=== PATIENT | male | born 1965 | race Caucasian/White ===

== ENCOUNTER 2020-01-14 06:54 | Outpatient (NON) | payer OTHER, SELFPAY ==
[2020-01-14 20:09] LABS: SARS-CoV-2 RNA PCR Negative
== END 2020-01-14 06:55 ==
PROVIDERS: PCP Internal Medicine; Visit Provider Nurse Practitioner
DX: Z20.828 Contact with and (suspected) exposure to other viral communicable diseases (principal); R05 Cough
CPT/HCPCS: 87635; C9803; U0003

== ENCOUNTER 2020-06-29 12:31 | Outpatient (CLI) | payer OTHER, SELFPAY ==
--- NOTE | 2020-06-29 15:00 | NEURO_ITS ---
IMPRESSION: # Complains of numbness of right hand. # Evolving right Carpal Tunnel Syndrome. # No ulnar neuropathy. # Normal needle/EMG exam. Nerve Conduction Studies Anti Sensory Summary Table Stim Site NR Peak (ms) P-T Amp (?V) Site1 Site2 Delta-P (ms) Dist (cm) David (m/s) Right Median Anti Sensory (2-3nd Digit) Wrist 3.0 77.4 Wrist 2-3nd Digit 3.0 14.0 47 Wrist 2.9 57.9 Wrist 2-3nd Digit 3.0 14.0 47 Right Radial Anti Sensory (Base 1st Digit) Wrist 2.3 10.2 Wrist Base 1st Digit 2.3 0.0 Right Ulnar Anti Sensory (5th Digit) Wrist 2.4 64.8 Wrist 5th Digit 2.4 14.0 58 Motor Summary Table Stim Site NR Onset (ms) O-P Amp (mV) Site1 Site2 Delta-0 (ms) Dist (cm) David (m/s) Right Median Motor (Abd Poll Brev) Wrist 3.9 5.8 Elbow Wrist 5.3 31.0 58 Elbow 9.2 3.7 Right Ulnar Motor (Abd Dig Minimi) Wrist 2.9 6.0 A Elbow Wrist 5.5 33.0 60 A Elbow 8.4 5.2 F Wave Studies NR F-Lat (ms) L-R F-Lat (ms) Right Median (Mrkrs) (Abd Poll Brev) 29.25 Right Ulnar (Mrkrs) (Abd Dig Min) 28.22 EMG Side Muscle Nerve Root Ins Act Fibs Amp Dur Recrt Comment Right 1stDorInt Ulnar C8-T1 Nml Nml Nml Nml Nml Right Ext Indicis Radial (Post Int) C7-8 Nml Nml Nml Nml Nml Right Ext Digitorum Radial (Post Int) C7-8 Nml Nml Nml Nml Nml Right BrachioRad Radial C5-6 Nml Nml Nml Nml Nml Right PronatorTeres Median C6-7 Nml Nml Nml Nml Nml Right Abd Poll Brev Median C8-T1 Nml Nml Nml Nml Nml MTDD
== END 2020-06-29 12:32 | disposition home or self-care (01) ==
PROVIDERS: PCP Internal Medicine; Visit Provider Internal Medicine
DX: R20.2 Paresthesia of skin (principal); G56.01 Carpal tunnel syndrome, right upper limb
CPT/HCPCS: 95886; 95909

== ENCOUNTER → 2020-08-20 06:45 | Outpatient (CLI) | payer OTHER, SELFPAY ==
[2020-08-20 23:33] LABS: SARS-CoV-2 RNA PCR Negative
== END ==
PROVIDERS: PCP Internal Medicine
DX: Z01.812 Encounter for preprocedural laboratory examination (principal); Z20.822 Contact with and (suspected) exposure to COVID-19
CPT/HCPCS: C9803; U0003; U0005

== ENCOUNTER 2020-08-22 10:50 | Outpatient (CLI) | payer OTHER, SELFPAY ==
--- NOTE | 2020-08-22 | ECG_ITS ---
Measurements Intervals [place] Rate: 60 P: 55 OR: 121 QRS: 15 QRSD: 102 T: 41 QT: 417 QTc: 418 Interpretive Statements SINUS RHYTHM BASELINE WANDER- I, III NORMAL ECG Electronically Signed On 08-22-2020 11:29:38 ART DEPARTMENT HEAD by Ahsan Juares D.O.
[2020-08-22 11:28] LABS: Anion Gap 4 mmol/L (8-16); Blood Urea Nitrogen 18 mg/dL (9-20); Calcium 8.9 mg/dL (8.4-10.2); Carbon Dioxide 31 mmol/L (22-30); Chloride 105 mmol/L (98-107); Estimated Glomerular Filt Rate > 60; Glucose 103 mg/dL (75-110); Potassium 4.3 mmol/L (3.4-5.0); Sodium 140 mmol/L (137-145)
== END 2020-08-22 10:51 | disposition home or self-care (01) ==
PROVIDERS: PCP Internal Medicine
DX: I10 Essential (primary) hypertension (principal); G56.01 Carpal tunnel syndrome, right upper limb; Z01.818 Encounter for other preprocedural examination
CPT/HCPCS: 36415; 80048; 93005

== ENCOUNTER 2020-10-18 09:30 | Outpatient (CLI) | payer OTHER, SELFPAY ==
--- NOTE | 2020-10-18 09:36 | EST_ITS ---
Patient Info Name: Austin Saldaña Age: 55 years : 1965 Gender: Male Ht: 71 in Wt: 248 lbs BSA: 2.41 m2 HR: 58 bpm BP: 117 / 86 mmHg Heart Rhythm: Sinus Rhythm Exam Date: 10/18/2020 11:13 AM Exam Location: [facility] Stress Patient Status: Outpatient Admit Date: 10/18/2020 Staff Ordering Physician: Kenia Quiles Attending Provider: Kenia Quiles Exercise Technologist: Shirin Izquierdo CT Exercise Physician: Ahsan Juares DO Exam Type: CA stress test treadmill Study Info Indications R06.02 - Shortness of breath An exercise stress test was performed. Summary 1. 1. Negative [place] exercise stress test for ischemic ST changes by ECG criteria. 2. 2. Good functional capacity, achieving 10 METs of workload. 3. 3. Appropriate HR response to exercise. 4. 4. Appropriate HR recovery at 1 minute post exercise. 5. 5. No imaging with stress testing. 6. 6. Patient informed of the above results. Protocol: [place] Stress ECG Details Stage: REST Duration (min): 0 min : 59 sec Speed (mph): 0.0 Grade (%): 0 HR (bpm): 64 SBP (mmHg): 117 DBP (mmHg): 86 METS: --- Stage: STAGE 1 Duration (min): 1 min : 0 sec Speed (mph): 1.7 Grade (%): 10 HR (bpm): 105 SBP (mmHg): 117 DBP (mmHg): 86 METS: --- Stage: STAGE 1 Duration (min): 2 min : 0 sec Speed (mph): 1.7 Grade (%): 10 HR (bpm): 108 SBP (mmHg): 117 DBP (mmHg): 86 METS: --- Stage: STAGE 1 Duration (min): 3 min : 0 sec Speed (mph): 1.7 Grade (%): 10 HR (bpm): 114 SBP (mmHg): 142 DBP (mmHg): 75 METS: --- Stage: STAGE 2 Duration (min): 1 min : 0 sec Speed (mph): 2.5 Grade (%): 12 HR (bpm): 125 SBP (mmHg): 142 DBP (mmHg): 75 METS: --- Stage: STAGE 2 Duration (min): 2 min : 0 sec Speed (mph): 2.5 Grade (%): 12 HR (bpm): 132 SBP (mmHg): 158 DBP (mmHg): 78 METS: --- Stage: STAGE 2 Duration (min): 3 min : 0 sec Speed (mph): 2.5 Grade (%): 12 HR (bpm): 136 SBP (mmHg): 158 DBP (mmHg): 78 METS: --- Stage: STAGE 3 Duration (min): 1 min : 0 sec Speed (mph): 3.4 Grade (%): 14 HR (bpm): 147 SBP (mmHg): 158 DBP (mmHg): 80 METS: --- Stage: STAGE 3 Duration (min): 2 min : 0 sec Speed (mph): 3.4 Grade (%): 14 HR (bpm): 156 SBP (mmHg): 158 DBP (mmHg): 80 METS: --- Stage: STAGE 3 Duration (min): 2 min : 59 sec Speed (mph): 4.2 Grade (%): 16 HR (bpm): 161 SBP (mmHg): 188 DBP (mmHg): 76 METS: --- Stage: RECOVERY Duration (min): 1 min : 0 sec Speed (mph): 0.0 Grade (%): 0 HR (bpm): 132 SBP (mmHg): 188 DBP (mmHg): 76 METS: --- Stage: RECOVERY Duration (min): 2 min : 0 sec Speed (mph): 0.0 Grade (%): 0 HR (bpm): 100 SBP (mmHg): 188 DBP (mmHg): 76 METS: ---
== END 2020-10-18 09:31 | disposition home or self-care (01) ==
LOC: ANHCARD 09:32
PROVIDERS: PCP Internal Medicine; Visit Provider Nurse Practitioner
DX: R06.02 Shortness of breath (principal)
CPT/HCPCS: 93017

== ENCOUNTER 2020-10-19 09:04 | Outpatient (CLI) | payer OTHER, SELFPAY ==
--- NOTE | ~2020-10-19 | US_ITS ---
US abdomen limited INDICATION: Elevated liver function tests PROCEDURE: Realtime right upper abdominal ultrasound. COMPARISON: No prior studies for comparison. FINDINGS: The pancreas is normal without focal mass or pancreatic ductal dilation. Liver echotexture is increased, consistent with fatty infiltration. There is normal directional flow in the portal ve in. The gallbladder is normal without stones, gallbladder wall thickening or pericholecystic fluid. Comm on bile duct measures 3 mm. No sonographic Mejia's sign. IMPRESSION: 1: Hepatic steatosis. Reviewed, dictated and finalized at location B. IMPRESSION: 1: Hepatic steatosis.
== END 2020-10-19 09:05 | disposition home or self-care (01) ==
PROVIDERS: PCP Internal Medicine; Visit Provider Nurse Practitioner
DX: R74.8 Abnormal levels of other serum enzymes (principal); K76.0 Fatty (change of) liver, not elsewhere classified
CPT/HCPCS: 76705

== ENCOUNTER 2020-10-24 10:47 | Outpatient (CLI) | payer OTHER, SELFPAY ==
--- NOTE | ~2020-10-24 | US_ITS ---
EXAMINATION: US venous doppler [facility] EXAM DATE: 10/24/2020 11:26 INDICATION: M79.605 - Pain in left leg. TECHNIQUE: Multiple grayscale, color flow and Doppler images of the left lower extremity deep venous system were obtained and reviewed. There is no prior study for comparison. FINDINGS: The left common femoral, femoral and profunda veins demonstrate normal color flow, respirat ory variation, augmentation and compressibility. Compressibility, color flow confirmed within the le ft popliteal, posterior tibial, peroneal, and greater saphenous veins. IMPRESSION: 1. No left lower extremity deep venous thrombosis. Reviewed, dictated and finalized at location B.
== END 2020-10-24 10:48 | disposition home or self-care (01) ==
PROVIDERS: PCP Internal Medicine; Visit Provider Nurse Practitioner
DX: M79.605 Pain in left leg (principal)
CPT/HCPCS: 93971

== ENCOUNTER → 2021-07-20 09:28 | Outpatient (CLI) | payer OTHER, SELFPAY ==
[2021-07-20 14:30] LABS: Influenza A QL RT-PCR Negative (Negative); Influenza B QL RT-PCR Negative (Negative); SARS-CoV-2 RNA PCR Negative
== END ==
PROVIDERS: PCP Internal Medicine; Visit Provider Nurse Practitioner
DX: R68.89 Other general symptoms and signs (principal); Z20.822 Contact with and (suspected) exposure to COVID-19
CPT/HCPCS: 87502; C9803; U0003; U0005

== ENCOUNTER → 2021-09-12 07:52 | Outpatient (CLI) | payer OTHER, SELFPAY ==
[2021-09-12 11:13] LABS: Influenza A QL RT-PCR Negative (Negative); Influenza B QL RT-PCR Negative (Negative); SARS-CoV-2 RNA PCR Negative
== END ==
PROVIDERS: PCP Internal Medicine; Visit Provider Nurse Practitioner
DX: R68.89 Other general symptoms and signs (principal); Z20.822 Contact with and (suspected) exposure to COVID-19
CPT/HCPCS: 87502; C9803; U0003; U0005

== ENCOUNTER → 2021-09-20 08:33 | Outpatient (CLI) | payer OTHER, SELFPAY ==
--- NOTE | ~2021-09-20 | XR_ITS ---
XR chest 2V DATE: 09/20/2021 08:50 INDICATION: Cough TECHNIQUE: PA and lateral views COMPARISON: 04/11/2018 two-view chest FINDINGS: Normal heart size. No hilar or mediastinal enlargement. No pulmonary infiltrate or consolid ation, pleural effusion or pulmonary vascular congestion or pneumothorax. Degenerative spurring of the thoracic spine. IMPRESSION: No active cardiopulmonary disease Reviewed, dictated and finalized at location A.
== END ==
PROVIDERS: PCP Internal Medicine; Visit Provider Nurse Practitioner
DX: R05.9 Cough, unspecified (principal)
CPT/HCPCS: 71046

== ENCOUNTER → 2021-10-11 14:42 | Outpatient (CLI) | payer OTHER, SELFPAY ==
--- NOTE | ~2021-10-11 | XR_ITS ---
EXAMINATION: XR foot LT min 3V DATE: 10/11/2021 15:14 INDICATION: Left foot pain TECHNIQUE: Dorsoplantar, lateral, and 2 oblique views of the left foot were obtained. COMPARISON: None. FINDINGS: Bone alignment is normal. There is no fracture. There is mild osteoarthritis at the first m etatarsophalangeal joint and in several interphalangeal joints. The soft tissues are unremarkable. Po sterior and plantar calcaneal enthesophytes are noted. IMPRESSION: 1. Mild osteoarthritis. Reviewed, dictated and finalized at location F. IMPRESSION: 1. Mild osteoarthritis.
== END ==
PROVIDERS: PCP Nurse Practitioner; Visit Provider Nurse Practitioner
DX: M19.072 Primary osteoarthritis, left ankle and foot (principal)
CPT/HCPCS: 73630

== ENCOUNTER → 2022-08-17 08:31 | Outpatient (CLI) | payer OTHER, SELFPAY ==
--- NOTE | ~2022-08-17 | XR_ITS ---
XR chest 2V 08/17/2022 08:44 Indication: Cough. Fever. Hypertension. Procedure: 2 view chest Comparison: 09/20/2021 Findings: Heart size normal. No focal air space disease, pulmonary edema, pleural effusion or suspect ed pneumothorax. Impression: 1: No acute cardiopulmonary disease. Reviewed, dictated and finalized at location B. ER GAS Impression: 1: No acute cardiopulmonary disease.
== END ==
PROVIDERS: PCP Internal Medicine; Visit Provider Nurse Practitioner Family
DX: R05.2 Subacute cough (principal); I10 Essential (primary) hypertension
CPT/HCPCS: 71046

== ENCOUNTER → 2023-03-13 13:39 | Outpatient (CLI) | payer OTHER, SELFPAY ==
--- NOTE | ~2023-03-13 | XR_ITS ---
XR lumbar spine 2-3V DATE: 03/13/2023 14:36 INDICATION: Low back pain. TECHNIQUE: Standing AP, lateral and coned lateral lumbosacral views COMPARISON: None FINDINGS: There is degenerative spurring of the lower thoracic spine and lumbar spine. There is moderate loss of height at L4-5 and L5-S1 interspaces. No fracture or bone destruction. The lumbar pedicles are intact. No spondylolisthesis. The sacroili ac joints are intact. IMPRESSION: Degenerative changes Reviewed, dictated and finalized at location A. IMPRESSION: Degenerative changes
== END ==
PROVIDERS: PCP Nurse Practitioner Family; Visit Provider Nurse Practitioner Family
DX: M51.36 Other intervertebral disc degeneration, lumbar region (principal)
CPT/HCPCS: 72100

== ENCOUNTER 2023-03-22 15:41 | Outpatient (CLI) | payer OTHER, SELFPAY ==
--- NOTE | ~2023-03-22 | MR_ITS ---
EXAMINATION: MR lumbar spine wo con DATE: 03/22/2023 16:18 INDICATION: Low back pain. Abnormal findings on diagnostic imaging. TECHNIQUE: Magnetic resonance imaging (MRI) of the lumbar spine was performed without intravenous con trast. Sequences included sagittal T2-weighted FSE, sagittal T2-weighted FS FSE, sagittal T1-weighted FSE, and axial T2-weighted FSE. COMPARISON: Lumbar spine radiographs 04/12/2023 FINDINGS: Bone alignment is normal. There is mild chronic anterior wedging of T12 and L1 vertebral soto dies. There is mildly decreased disc height at L2-L3 and L4-L5 and moderately decreased disc height a t L5-S1. The distal spinal cord signal intensity is normal. The conus medullaris is at L1. The follow ing disc levels are specifically discussed: L1-L2: The disc is bulging. There is moderate bilateral facet joint osteoarthritis. There is no neura l foraminal stenosis. There is mild central canal stenosis. L2-L3: The disc is bulging. There is moderate right and mild left facet joint osteoarthritis. There i s mild bilateral neural foraminal stenosis. There is mild central canal stenosis. L3-L4: The disc does not extend beyond the endplate margin. There is mild bilateral facet joint osteo arthritis. There is no neural foraminal stenosis. There is no central canal stenosis. L4-L5: The disc is bulging with superimposed central extrusion that abuts the right L5 nerve root in right lateral recess. There is mild bilateral facet joint osteoarthritis. There is mild bilateral brian ral foraminal stenosis. There is mild central canal stenosis. L5-S1: The disc is bulging and has an annular fissure. There is severe bilateral facet joint osteoart hritis. There is mild bilateral neural foraminal stenosis. There is mild central canal stenosis. IMPRESSION: 1. Moderate lumbar spondylosis. Reviewed, dictated and finalized at location E.
== END 2023-03-22 15:42 | disposition home or self-care (01) ==
PROVIDERS: PCP Family Medicine; Visit Provider Nurse Practitioner Family
DX: R93.89 Abnormal findings on diagnostic imaging of other specified body structures (principal); M47.26 Other spondylosis with radiculopathy, lumbar region
CPT/HCPCS: 72148

== ENCOUNTER 2023-09-05 06:49 | Day surgery (SDC) | payer OTHER, SELFPAY ==
[2023-08-19 14:42] VITALS: BMI 36.3
[2023-09-05 08:45] VITALS: BP 142/104; PULSE 78; RESP 20; TEMP 36.5; O2SAT 99
[2023-09-05] MEDS: LACTATED RINGERS 1,000 ML 150 ML IV CONT (09:05)
--- NOTE | 2023-09-05 09:19 | PM.HPGS ---
History of Present Illness History of Present Illness Consent: Risks, benefits, and alternatives have been discussed and questions answered. Patient agrees to proceed with procedure. Chief complaint: History of colon polyps Narrative: Austin Saldaña is a 58 year old male presents for colonoscopy. Patient reports his current weight appetite and bowel movements are normal. Patient denies abdominal pain. He has had no bleeding. Five years ago had a diminutive benign rectal polyp that was fulgurated. Family history is significant his sister has had colon polyps. Patient returns today for follow-up colonoscopy. Review of Systems Review of Systems: Review of systems noncontributory. [facility] Past Medical History Medical History Essential hypertension Hepatic steatosis Hepatitis C virus infection resolved after antiviral drug therapy Polyp of colon Right carpal tunnel syndrome Family History Family History Mother Family history of cardiovascular disease Father Family history of malignant neoplasm Social History Social History Smoking packs per day: 1.5 Smoking cigarettes per day: 30.0 Years smoked: 18 Smoking pack-years: 27.00 Smoking status: Former smoker Tobacco type: cigarettes Second hand tobacco smoke exposure: No Smoking end date: 06/24/89 Alcohol intake: current Drinks per week: 6 Alcohol use details: occasionally, beer/bourbon Substance use: never Substance use type: does not use Lack of Transportation: No Lack of Food: Never True Current Housing: I Have Housing Concerned About Future Housing: No Difficulty Paying Gas/Electric Bills: No Difficulty Paying for Meds: No Currently Unemployed: YES Education: High School Diploma/GED Difficulty w/ Childcare or Family Care: No Living arrangements: with family Meds Home Medications and Allergies Home Medications Medication Instructions Recorded Confirmed Type allopurinol 100 mg tablet 100 mg PO DAILY PRN Cough 05/07/22 09/05/23 History inhalational spacing device #1 ea 08/17/22 09/05/23 Rx (Flexichamber spacer) syringe with needle 3 mL 25 gauge #50 ea 02/15/23 09/05/23 Rx x 1 cyclobenzaprine 10 mg tablet 10 mg PO TID PRN muscle spasm #30 03/13/23 09/05/23 Rx tabs losartan 25 mg tablet See Rx Instructions .Route 05/24/23 09/05/23 Rx .COMPLEX #90 tabs fluticasone propionate 50 See Rx Instructions .Route 06/21/23 09/05/23 Rx mcg/actuation nasal .COMPLEX #48 grams spray,suspension testosterone cypionate 200 mg/mL 200 mg IM .every 2weeks #10 mL 08/16/23 09/05/23 Rx intramuscular oil (Depo-Testosterone) tirzepatide (weight loss) 5 mg/0.5 5 mg (0.5 mL) subcut WEEKLY #2 mL 09/02/23 09/05/23 Rx mL subcutaneous pen injector (Zepbound) sodium,potassium,mag sulfates 17.5 See Rx Instructions PO .COMPLEX 09/03/23 09/05/23 Rx gram-3.13 gram-1.6 gram oral soln #354 mL (Suprep Bowel Prep Kit) Allergies Allergy/AdvReac Type Severity Reaction Status Date / Time No Known Allergies Allergy Verified 09/05/23 08:47 Vital Signs Vital Signs - 24 hr 09/05/23 08:45 Temperature 97.7 F Pulse Rate 78 Respiratory Rate 20 Blood Pressure 142/104 H Pulse Oximetry 99 Oxygen Delivery Room Air Exam Narrative: Physical exam reveals patient to be alert. Vital signs stable. HEENT exam is unremarkable. Patient is anicteric. His are clear to auscultation and to percussion is without murmur or extra sounds. Abdomen bowel sounds are present soft nontender with no organomegaly. digital external rectal exam normal. Assessment and Plan Assessment and plan (1) History of colon polyps: Code(s): Z86.010 - Personal history of colonic polyps Status: Acute Assessment and Plan:
--- NOTE | 2023-09-05 09:46 | WPDANESEPPF ---
Anes - Initial Pre Proc Eval Procedure: Operation Date: 09/05/23 10:00 Proposed Procedures p Colonoscopy - Juanjose Alan MD Date/Time: 09/05/23 09:46 Surgeon: Juanjose Alan MD Pre Op Diagnosis: History of colon polyps Patient Data Age: 58 Gender: M Height: 1.8 m Weight: 114.1 kg Last Vital Signs Temp 36.5 C 09/05/23 08:45 Pulse 78 09/05/23 08:45 Resp 20 09/05/23 08:45 BP 142/104 H 09/05/23 08:45 Pulse Ox 99 09/05/23 08:45 O2 Del Method Room Air 09/05/23 08:45 Allergies Allergy/AdvReac Type Severity Reaction Status Date / Time No Known Allergies Allergy Verified 09/05/23 08:47 Home Medications Medication Instructions Recorded Confirmed Type allopurinol 100 mg tablet 100 mg PO DAILY PRN Cough 05/07/22 09/05/23 History inhalational spacing device #1 ea 08/17/22 09/05/23 Rx (Flexichamber spacer) syringe with needle 3 mL 25 gauge #50 ea 02/15/23 09/05/23 Rx x 1 cyclobenzaprine 10 mg tablet 10 mg PO TID PRN muscle spasm #30 03/13/23 09/05/23 Rx tabs losartan 25 mg tablet See Rx Instructions .Route 05/24/23 09/05/23 Rx .COMPLEX #90 tabs fluticasone propionate 50 See Rx Instructions .Route 06/21/23 09/05/23 Rx mcg/actuation nasal .COMPLEX #48 grams spray,suspension testosterone cypionate 200 mg/mL 200 mg IM .every 2weeks #10 mL 08/16/23 09/05/23 Rx intramuscular oil (Depo-Testosterone) tirzepatide (weight loss) 5 mg/0.5 5 mg (0.5 mL) subcut WEEKLY #2 mL 09/02/23 09/05/23 Rx mL subcutaneous pen injector (Zepbound) sodium,potassium,mag sulfates 17.5 See Rx Instructions PO .COMPLEX 09/03/23 09/05/23 Rx gram-3.13 gram-1.6 gram oral soln #354 mL (Suprep Bowel Prep Kit) Patient hx anesthesia problems: none Family hx anesthesia problems: none Results Review: All pre-operative results and documents have been reviewed as part of the pre-operative evaluation. [facility] Past Medical History Medical History Essential hypertension Hepatic steatosis Hepatitis C virus infection resolved after antiviral drug therapy Polyp of colon Right carpal tunnel syndrome Family History Family History Mother Family history of cardiovascular disease Father Family history of malignant neoplasm Social History Social History Smoking packs per day: 1.5 Smoking cigarettes per day: 30.0 Years smoked: 18 Smoking pack-years: 27.00 Smoking status: Former smoker Tobacco type: cigarettes Second hand tobacco smoke exposure: No Smoking end date: 06/24/89 Alcohol intake: current Drinks per week: 6 Alcohol use details: occasionally, beer/bourbon Substance use: never Substance use type: does not use Lack of Transportation: No Lack of Food: Never True Current Housing: I Have Housing Concerned About Future Housing: No Difficulty Paying Gas/Electric Bills: No Difficulty Paying for Meds: No Currently Unemployed: YES Education: High School Diploma/GED Difficulty w/ Childcare or Family Care: No Living arrangements: with family Anes - Eval Final PreProcedure Day of Procedure 09/05/23 09:46 Patient weight: obese Heart: regular rate and rhythm Lungs: clear to auscultation Airway: Mallampati scale class II Neurological: alert and oriented Last oral intake: >/= 8 hours ASA classification: III Emergent: no Anesthetic plan: proceed Anesthesia type and monitoring: general GIVS and standard monitoring Results Review: All pre-operative results and documents have been reviewed as part of the pre-operative evaluation. Informed Consent: The patient's anesthetic plan and its attendant risks and benefits were discussed with the patient/family/POA. Questions were solicited and answers provided to the satisfaction of the patient/fami
[2023-09-05 10:57] VITALS: BP 109/78; PULSE 91; RESP 22; O2SAT 99
--- NOTE | 2023-09-05 11:01 | WPDANESPN ---
Anes - Prog Note Post-Op Date/Time: 09/05/23 11:01 Cardiovascular status: normal Respiratory status: normal Airway patency: baseline Mental status: baseline Post-Op hydration status: normal Vital Signs: Last Vital Signs Temp 36.5 C 09/05/23 08:45 Pulse 78 09/05/23 08:45 Resp 20 09/05/23 08:45 BP 142/104 H 09/05/23 08:45 Pulse Ox 99 09/05/23 08:45 O2 Del Method Room Air 09/05/23 08:45 Pain Score (VAS): 0 I/O: Intake & Output 09/04/23 09/05/23 09/05/23 23:59 07:59 15:59 Intake Total 600 Balance 600 Patient Feedback: Patient satisfied with anesthetic care.
[2023-09-05 11:07] VITALS: BP 124/89; PULSE 77; RESP 20; O2SAT 100
[2023-09-05 11:17] VITALS: BP 132/85; PULSE 69; RESP 20; O2SAT 100
== END 2023-09-05 11:25 | disposition home or self-care (01) ==
PROVIDERS: PCP Family Medicine; Visit Provider Internal Medicine Gastroenterology
PROC: 0DJD8ZZ Inspection of Lower Intestinal Tract, Via Natural or Artificial Opening Endoscopic (ICD-10-PCS; CPT 45378; principal; 2023-09-05 10:00)
DX: Z86.010 Personal history of colon polyps (principal); D12.3 Benign neoplasm of transverse colon; D12.5 Benign neoplasm of sigmoid colon; K57.30 Diverticulosis of large intestine without perforation or abscess without bleeding; K64.8 Other hemorrhoids
CPT/HCPCS: 45385

== ENCOUNTER 2023-09-05 07:17 | Outpatient (NON) | payer OTHER, SELFPAY | END 2023-09-05 07:18 | disposition home or self-care (01) | PROVIDERS: PCP Family Medicine; Visit Provider Internal Medicine Gastroenterology | DX: Z86.010 Personal history of colon polyps (principal) | CPT/HCPCS: 88305 ==

== ENCOUNTER 2024-04-17 08:24 | Outpatient (CLI) | payer OTHER, SELFPAY ==
--- NOTE | ~2024-04-17 | XR_ITS ---
EXAMINATION: XR thoracic spine 2V DATE: 04/17/2024 08:52 INDICATION: Pain in thoracic spine. TECHNIQUE: 3 views of thoracic spine on 5 radiographs were obtained. COMPARISON: Chest 2 views 08/17/2022 FINDINGS: There is 7 degrees levocurvature of upper thoracic spine and 7 degrees dextrocurvature of l ower thoracic spine. There is mild chronic anterior wedging of a midthoracic vertebral body. There is mildly decreased disc height at multiple levels. There are endplate osteophytes at most levels. IMPRESSION: 1. Mild thoracic spondylosis. Reviewed, dictated and finalized at location A.
--- NOTE | ~2024-04-17 | XR_ITS ---
EXAMINATION: XR chest 2V 04/17/2024 08:52 INDICATION: Preprocedural examination. PROCEDURE: 2 view chest COMPARISON: 08/17/2022 FINDINGS: The lungs are clear. The cardiomediastinal silhouette is within normal limits. There are no pleural effusions. There is no pneumothorax suspected. IMPRESSION: 1: NO ACUTE CARDIOPULMONARY DISEASE. Reviewed, dictated and finalized at location B.
[2024-04-17 09:16] LABS: Hematocrit 51.6 % (42.0-52.0); Mean Corpuscular HGB Conc 32.9 g/dl (32-36); Mean Corpuscular Hemoglobin 32.5 pg (26-34); Mean Corpuscular Volume 98.7 fl (80-100); Platelet Count Result 233 k/mm3 (150-375); Red Blood Count 5.23 M/mm3 (4.6-6.20); Red Cell Distribution Width 13.6 % (11.5-14.5); White Blood Count 12.6 K/mm3 (4.5-10.0)
[2024-04-17 09:21] LABS: Add Urine Microscopic? YES; Appearance Urine Clear (Clear); Bacteria Urine None Seen /hpf; Bilirubin Urine Negative (Negative); Blood Urine Negative (Negative); Color Urine Yellow (Yellow); Glucose Urine UA Negative (Negative); Ketones Urine Trace mg/dL (Negative); Leukocyte Esterase Ur Trace LEU/UL (Negative); Nitrate Urine Negative (Negative); Non Pathogenic Casts 0-2; Protein Urine Negative (Negative); RBC Urine 0-2 /hpf (0-2); Squamous Epithelial Cell Urine None Seen /hpf (Few); WBC Urine 0-5 /hpf (0-3)
[2024-04-17 10:19] LABS: Alanine Aminotransferase 27 U/L (6-50); Albumin Level 4.8 g/dL (3.5-5.1); Alkaline Phosphatase 78 U/L (38-126); Anion Gap 10 mmol/L (4-12); Aspartate Amino Transferase 44 U/L (17-59); Bilirubin,Total 0.7 mg/dL (0.2-1.3); Blood Urea Nitrogen 20 mg/dL (9-20); Calcium 9.2 mg/dL (8.4-10.2); Carbon Dioxide 28 mmol/L (22-30); Chloride 103 mmol/L (98-107); Estimated Glomerular Filt Rate > 60; Glucose 87 mg/dL (65-110); Potassium 4.5 mmol/L (3.4-5.0); Sodium 141 mmol/L (137-145)
== END 2024-04-17 08:25 | disposition home or self-care (01) ==
PROVIDERS: PCP Family Medicine; Visit Provider Nurse Practitioner Family
DX: Z01.818 Encounter for other preprocedural examination (principal); M54.6 Pain in thoracic spine
CPT/HCPCS: 36415; 71046; 72070; 80053; 81001; 85027

== ENCOUNTER 2024-04-23 10:36 | Outpatient (CLI) | payer OTHER, SELFPAY ==
--- NOTE | ~2024-04-23 | MR_ITS ---
MRI of the lumbar spine Clinical History: Back pain Technique: Axial T2-weighted images, and sagittal T1-weighted, T2-weighted, and T2 fat-sat images wer e acquired. Findings: There is no fracture or subluxation of the lumbar spine. Vertebral bodies maintain normal h eight and alignment. No bone marrow signal abnormality seen. At L1-L2, there is minimal disc bulge. There is mild facet hypertrophy. No central canal stenosis or neural foraminal narrowing. At L2-L3, there is minimal disc bulge and mild facet arthropathy. No central canal stenosis or neural foraminal narrowing. At L3-L4, there is minimal disc bulge and mild facet arthropathy. No central canal stenosis or neural foraminal narrowing. At L4-L5, there is central disc protrusion with moderate facet arthropathy. No central canal stenosis . No tex neural foraminal narrowing. At L5-S1, there is mild diffuse disc bulge with mild to moderate facet arthropathy. No central canal stenosis. There is minimal right neural foraminal narrowing. Left neural foramen preserved. Paravertebral soft tissues are unremarkable. Impression: Mild degenerative spondylosis, as above. Reviewed, dictated and finalized at location . Impression: Mild degenerative spondylosis, as above.
== END 2024-04-23 10:37 | disposition home or self-care (01) ==
LOC: GOSHIMG 10:38
PROVIDERS: PCP Family Medicine; Visit Provider Orthopaedic Surgery
DX: M47.26 Other spondylosis with radiculopathy, lumbar region (principal)
CPT/HCPCS: 72148

== ENCOUNTER 2024-08-21 10:06 | Outpatient (CLI) | payer OTHER, SELFPAY ==
[2024-08-21 11:11] LABS: Basophils Absolute Auto 0.1 K/mm3 (0.0-0.1); Basophils Percent Auto 0.8 % (0.2-1.2); Eosinophils Absolute Auto 0.2 K/mm3 (0-0.3); Eosinophils Percent Auto 2.8 % (0-4.4); Hematocrit 51.6 % (42.0-52.0); Hemoglobin 17.7 g/dL (14.0-18.0); Immature Granulocyte Absolute 0.03 K/mm3 (0.00-0.031); Immature Granulocyte Percent A 0.5 % (0-0.5); Lymphocytes Absolute Auto 1.96 K/mm3 (0.9-3.2); Lymphocytes Percent Auto 30.3 % (18.3-44.2); Mean Corpuscular HGB Conc 34.3 g/dl (32-36); Mean Corpuscular Hemoglobin 33.7 pg (26-34); Mean Corpuscular Volume 98.3 fl (80-100); Mean Platelet Volume 9.8 fl (7.4-10.4); Monocytes Absolute Auto 0.6 K/mm3 (0.1-0.6); Monocytes Percent Auto 8.5 % (2.6-8.5); Neutrophils Absolute Auto 3.7 K/mm3 (1.3-6.7); Neutrophils Percent Auto 57.1 % (45.5-73.1); Platelet Count Result 242 k/mm3 (150-375); Red Blood Count 5.25 M/mm3 (4.6-6.20); White Blood Count 6.5 K/mm3 (4.5-10.0)
[2024-08-21 11:52] LABS: Alanine Aminotransferase 25 U/L (6-50); Albumin Level 4.5 g/dL (3.5-5.1); Alkaline Phosphatase 70 U/L (38-126); Anion Gap 9 mmol/L (4-12); Aspartate Amino Transferase 32 U/L (17-59); Bilirubin,Total 0.7 mg/dL (0.2-1.3); Blood Urea Nitrogen 18 mg/dL (9-20); Calcium 9.1 mg/dL (8.4-10.2); Carbon Dioxide 26 mmol/L (22-30); Chloride 106 mmol/L (98-107); Estimated Glomerular Filt Rate > 60; Glucose 80 mg/dL (65-110); Potassium 4.7 mmol/L (3.4-5.0); Sodium 141 mmol/L (137-145)
[2024-08-21 15:46] LABS: Hemoglobin A1C 4.7 % (<5.7)
== END 2024-08-21 10:07 | disposition home or self-care (01) ==
LOC: ANHLAB 10:07
PROVIDERS: PCP Family Medicine; Visit Provider Family Medicine
DX: R73.03 Prediabetes (principal); I10 Essential (primary) hypertension; D75.1 Secondary polycythemia; R79.89 Other specified abnormal findings of blood chemistry; R74.8 Abnormal levels of other serum enzymes
CPT/HCPCS: 36415; 80053; 83036; 84403; 85025

== ENCOUNTER 2025-01-16 01:04 | Inpatient (IN) | payer OTHER, SELFPAY ==
[2025-01-16] VITALS (26 sets, daily range): BP systolic 131–165; BP diastolic 72–103; PULSE 61–100; RESP 12–21; TEMP 36.5–37; O2SAT 90–100; BMI 29.7
--- NOTE | 2025-01-16 | ECHO_ITS ---
Patient Info Name: Austin Saldaña Age: 59 years : 1965 Gender: Male Ht: 71 in Wt: 212 lbs BSA: 2.22 m2 HR: 66 bpm BP: 142 / 74 mmHg Technical Quality: Fair Exam Date: 01/16/2025 2:15 PM Patient Status: O Admit Date: 01/16/2025 Exam Type: CA echo dop color flow w con Complete two-dimensional, color flow and Doppler transthoracic echocardiogram is performed with contrast to opacify the left ventricle and to improve the deliniation of the left ventricle endocardial borders. Staff Referring Physician: Mallika Pruitt Senior Grant Writer: Kathrin Metcalf Attending Provider: Gilbert Garcia Contrast/Agitated Saline Contrast/Ag. Saline: Definity Amount: 2.00 ml Administered By: Kathrin Metcalf Summary 1. The left ventricle is normal in size with moderately reduced systolic function. The left ventricular ejection fraction is visually estimated to be 30-35%. There is global hypokinesis. 2. The right ventricle is normal in size and systolic function. 3. There is no significant valvular abnormalities. Left Ventricle The left ventricle is normal in size with moderately reduced systolic function. The left ventricular ejection fraction is visually estimated to be 30-35%. There is global hypokinesis. Right Ventricle The right ventricle is normal in size and systolic function. Left Atria Left atrium is mildly dilated. Right Atria Right atrium is normal size. Atrial Septum The atrial septum is normal. Aortic Valve The aortic valve is trileaflet and opens well. There is no aortic regurgitation. Pulmonic Valve The pulmonic valve is not well visualized. There is no color Doppler evidence of pulmonic valve regurgitation. Mitral Valve The mitral valve is normal. There is trace mitral regurgitation. Tricuspid Valve The tricuspid valve is grossly normal. There is no tricuspid regurgitation. Pericardium/Pleural Pericardium is normal in appearance with no evidence for significant pericardial effusion. Inferior Vena Cava Normal inferior vena cava with >50% collapse upon inspiration consistent with normal right atrial pressure, 3 mmHg. Aorta The aortic root at the level of the sinus of Valsalva measures 3.1 cm in diameter. Left Ventricular Outflow Tract Name Value Normal LVOT 2D LVOT Diameter 2.0 cm LVOT Doppler LVOT Peak Velocity 102 cm/s LVOT Peak Gradient 4 mmHg LVOT Mean Gradient 2 mmHg LVOT VTI 23 cm LVOT Stroke Volume 72 ml LVOT CO 4.7 l/min LVOT CI 2.1 l/min/m2 Pulmonic Valve Name Value Normal RVOT Doppler RVOT Peak Velocity 96 cm/s RVOT Peak Gradient 4 mmHg PV Doppler PV Peak Velocity 159 cm/s PV Peak Gradient 10 mmHg Mitral Valve Name Value Normal MV Diastolic Function MV E Peak Velocity 66 cm/s MV A Peak Velocity 90 cm/s MV E/A 0.7 MV Decel Time (PW) 230 ms MV Annular TDI MV E/e' (Septal) 12.8 MV E/e' (Lateral) 8.6 MV E/e' (Average) 10.7 Tricuspid Valve Name Value Normal Estimated PAP/RSVP RA Pressure 3 mmHg <=5 Aortic Valve Name Value Normal AV Doppler AV Peak Velocity 161 cm/s AV Peak Gradient 10 mmHg AV Area (Cont Eq David) 2.0 cm2 AV DI (David) 0.63 AV Regurgitation 2D LVOT Area 3.2 cm2 Ventricles Name Value Normal LV Dimensions 2D/MM IVS Diastolic Thickness (2D) 0.8 cm 0.6-1.0 LVID Diastole (2D) 5.5 cm 4.2-5.8 LVIW Diastolic Thickness (2D) 1.1 cm 0.6-1.0 LVID Systole (2D) 4.8 cm 2.5-4.0 LVOT Diameter 2.0 cm LV Mass (2D Cubed) 192.81 g 88.00-224.00 LV Mass Index (2D Cubed) 87 g/m2 49-115 Relative Wall Thickness (2D) 0.38 <=0.42 LV Fractional Shortening/Ejection Fraction 2D/MM LV Fractional Shortening (2D) 13 % 25-43 LV EF (2D Teichholz) 28 % LV Diastolic Volume (4C MOD) 173 ml LV EF (4C MOD) 31 % LV Diastolic Volume (2C MOD) 191 ml LV EF (2C MOD) 33 % LV Diastolic Volume (BP MOD) 185 ml 62-150 LV Diastolic Volume Index (BP MOD) 83 ml/m2 34-74 LV Systolic Volume (BP MOD) 127 ml 21-61 LV Systolic Volume Index (BP MOD) 57 ml/m2 11-31 LV EF (BP MOD) 31 % 52-72 LV Diastolic Length (4C) 8.9 cm LV Systolic Length (4C) 7.7 cm LV Stroke Volume (4C MOD) 54 ml Atria Name Value Normal LA Dimensions LA Volume (4C A-L) 83 ml LA Volume (BP A-L) 78 ml RA Dimensions RA Systolic Major [place] Length (4C) 4.1 cm 2.1-2.7 RA Area (4C) 11.5 cm2 <=18.0 Report Signatures
--- NOTE | ~2025-01-16 | XR_ITS ---
CHEST RADIOGRAPH, PA AND LATERAL CLINICAL HISTORY: sob . COMPARISON: 04/17/2024 TECHNIQUE: PA and lateral views of the chest. FINDINGS The cardiomediastinal silhouette is unremarkable. Increased interstitial markings are identified bilaterally, findings suggesting mild pulmonary vascul ar congestion. The lungs are otherwise clear. IMPRESSION: Mild pulmonary vascular congestion, without focal infiltrate or effusion. Reviewed, dictated and finalized at location A.
--- NOTE | ~2025-01-16 | CT_ITS ---
EXAMINATION: CTA chest PE protocol DATE: 01/16/2025 6:46 CDT INDICATION: Hemoptysis/ TECHNIQUE: Computed tomographic angiography (CTA) of the chest was performed with 100 mL Omnipaque-35 0 intravenous contrast. The dose-length product was 821.23 mGy-cm. Maximum intensity projection 3D-re constructions of the aorta and other arteries were constructed by the technologist on a separate work station. COMPARISON: None. FINDINGS/OBSERVATIONS: PULMONARY ARTERIES: No filling defect is identified within the main or proximal pulmonary artery. The main pulmonary artery is not enlarged. THORACIC AORTA: No aneurysmal dilatation or dissection is present. The great vessels are intact LUNGS: Diffuse groundglass opacification suggesting pulmonary edema. No consolidation is appreciated. No discrete pulmonary nodules are noted. MEDIASTINUM: No morphologically suspicious or pathologically enlarged lymph nodes are identified with in the mediastinum or bilateral axilla. BONES OF THE CHEST: No acute fracture. There are bridging endplate osteophytes at multiple levels in the thoracic spine, consistent with dif fuse idiopathic skeletal hyperostosis (DISH). No lytic or blastic lesions. HEART: The heart is of normal size, without pericardial effusion. IMPRESSION: No pulmonary embolus. No thoracic aortic dissection. Pulmonary edema without consolidation. Reviewed, dictated and finalized at location A.
--- OUTSIDE RECORDS SUMMARY | 2025-01-16 01:06 | XMS_ITS | Referral Summary ---
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 Gender Identity Not on file Sexual Orientation Not on file Last Filed Vital Signs Vital Sign Reading Time Taken Comments Blood Pressure 155/88 03/20/2023 11:16 AM CDT Pulse 61 03/20/2023 11:16 AM CDT Temperature - - Respiratory Rate - - Oxygen Saturation - - Inhaled Oxygen Concentration - - Weight 117.9 kg (260 lb) 03/20/2023 11:25 AM CDT Height 180.3 cm (5' 11) 03/20/2023 11:25 AM CDT Body Mass Index 36.26 03/20/2023 11:25 AM CDT Plan of Treatment Not on file Insurance [facility] CHOICE PLUS [address] [place] [id number] CHOICE PLUS Member Subscriber Plan / Payer (Ef fective 2022-Present) Name:PiotrAustin Relation to Subscriber:Self Name:Austin Saldaña Saran Payer ID:[id number] (NAIC) Type:[facility] HMO/PPO Address: [place] [id number] [place] [id number] Care Teams Harvest Worker Relationship Specialty Start Date End Date Lucas Hinojosa MD PCP - General Family Practice 03/12/23
--- OUTSIDE RECORDS SUMMARY | 2025-01-16 01:06 | XMS_ITS | Encounter Summary ---
Author Organization [facility] Address [address] [place] [address] Care Team Providers Care Manager User Experience Name Role Phone Unavailable Primary Care Provider Unavailabl e Encounter Details Date Type Department Care Team (Late st Contact Info) Description 01/18/2005 Outpatient Historical [facility] Internal Medicine - [place] [address] [place] [address] Evaristo Rg MD [address] [place] [address] Social History Tobacco Use Types Packs/Day Years Used Date Smoking Tobacco: Never Assessed Sex and Gender Information Value Date Recorded Sex Assigned at Not on file 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
--- OUTSIDE RECORDS SUMMARY | 2025-01-16 01:06 | XMS_ITS | Clinical Summary ---
Author Organization [facility] Address [address] [place]: Epic Prelude ADT [place] [address] Care Team Providers Care Mix Mill Tender Name Role Phone Unavailable Primary Care Provider Unavailabl e Allergies Active Allergy Reactions Criticality Noted Date Comments No Known Allergies 01/18/2005 Active Problems Problem Noted Date Diagnosed Date Acute hepatitis C without mention of hepatic com a(070.51) 01/18/2005 Routine general medical exam ination at a health care facility 01/18/2005 Social History Tobacco Use Types Packs/Day Years Used Date Smoking Tobacco: Never Assessed Sex and Gender Information Value Date Recorded Sex Assigned at Not on file 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
--- OUTSIDE RECORDS SUMMARY | 2025-01-16 01:06 | XMS_ITS | Encounter Summary ---
Author Organization [facility] Address [address] [place] [address] Care Team Providers Care Telecommunication Engineer Name Role Phone Unavailable Primary Care Provider Unavailabl e Encounter Details Date Type Department Care Team (Late st Contact Info) Description 01/18/2005 Outpatient Historical [facility] Internal Medicine 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
--- OUTSIDE RECORDS SUMMARY | 2025-01-16 01:06 | XMS_ITS | Clinical Summary ---
Author Organization [facility] [employer] Address [address] [place] [address] Care Team Providers Care Pantry Cook Name Role Phone Unavailable Primary Care Provider Unavailabl e Source Comments [facility],non-owned Affiliates and Associated Physician Practices is amultiple site organization consisting of ambulatory clinics and hospital sitesin [place], [place], [place] and [place]. This disclosure is being madepursuant to the Care Everywhere program and may not contain all information available regarding this patient. Last updated 18.[facility] [employer] Allergies Active Allergy Reactions Criticality Noted Date Comments Penicillins Swelling 05/20/2017 Arm swelled from PCN injection as child Medications * Be aware that medications may not be up to date on this document. Alwaysverify current medications with the patient. methylPREDNISol one (MEDROL DOSEPAK) 4 MG tabletIndicatio ns:Acute maxillary sinusitis, recurrence not specified Take by mouth as directed Use dose pack of 4mg tabs, start 24 mg/day, taper by 4mg/day over 6 days per pkg instructions. Take with food. 1 Each 7 Active Additional Information Patient not taking.Reported on 02/25/2018 benzonatate (TESSALON) 200 MG capsuleIndicati ons:Acute maxillary sinusitis, recurrence not specified Take 1 capsule by mouth 3 times daily as needed for Cough 30 capsule 7 Active Additional Information Patient not taking.Reported on 02/25/2018 fluticasone propionate (FLONASE) 50 MCG/ACT nasal sprayIndication s:Acute maxillary sinusitis, recurrence not specified Tappan 2 sprays into each nostril once daily 1 bottles 7 Active Family History Medical History Relation Name Comments Cancer - Other Father blood CAD (Coronary Artery Disease) Mother Diabetes - Type 2 Mother Relation Name Status Comments Father Mother Social History Tobacco Use Types Packs/Day Years Used Date Smoking Tobacco: Former Cigarettes Q uit: 1989 Smokeless Tobacco: Never Sex and Gender Information Value Date Recorded Sex Assigned at Not on file 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 Gender Identity Not on file Sexual Orientation Not on file Last Filed Vital Signs Vital Sign Reading Time Taken Comments Blood Pressure 122/80 02/25/2018 2:33 PM CDT Pulse 91 02/25/2018 2:33 PM CDT Temperature 36.9 C (98.4 F) 02/25/2018 2:33 PM CDT Respiratory Rate 16 02/25/2018 2:33 PM CDT Oxygen Saturation 97% 02/25/2018 2:33 PM CDT Inhaled Oxygen Concentration - - Weight 104.3 kg (230 lb) 02/25/2018 2:33 PM CDT Height 180.3 cm (5' 11) 02/25/2018 2:33 PM CDT Body Mass Index 32.08 02/25/2018 2:33 PM CDT Plan of Treatment Health Maintenance Due Date Last Done Comments COLOGUARD (AGES 45-75) - COL ON CA SCREENING 1965 COLON MONITORING 1965 COLONOSCOPY - COLON CA SCREENING 1964 CT COLONOGRAPHY - COLON CA SCREENING 1964 Colorectal Cancer Screening 1964 FIT - COLON CA SCREENING 1964 FLEX SIG - COLON CA SCREENING 1964 LIPID TESTING 1964 HIV SCREENING 1979 HEPATITIS C SCREENING 04/25/1982 DTAP/TDAP/TD VACCINES (1 - Tdap) 1983 PNEUMOCOCCAL VACCINE 50+ (1 of 1 - PCV) 2014 ZOSTER VACCINE (1 of 2) 2014 SCREENING FOR DIABETES 05/20/2017 COVID-19 VACCINE ( - 2023-2 5 season) 2024 DEPRESSION SCREENING 06/24/2024 INFLUENZA VACCINE (#1) 2025 Respiratory Syncytial Virus (RSV) Vaccine Pt: or over 60 yrs (1 - 1-dose 75+ series) 2039 HEPATITIS B VACCINE Aged Out No longe r eligible based on patient's age to complete this topic HIB VACCINE Aged Out No longer eligi ble based on patient's age to complete this topic HPV VACCINE Aged Out No longer eligi ble based on patient's age to complete this topic MENINGOCOCCAL (Group B) VACC INE SHARED DECISION-MAKING Aged Out No longer eligibl e based on patient's age to complete this topic MENINGOCOCCAL GROUPS A/C/Y/W VACCINE Aged Out No longer eligible b ased on patient's age to complete this topic Insurance [facility] SELF PAY NO INSURANCE Member Subscriber Plan / Payer (Ef fective for All Dates) Name:Austin Ashton Member ID:Not on file Relation to Subscriber:Not on file Name:AUSTIN ASHTON Subscriber ID:Not on file Address: [address] [place] [address] Payer ID:Not on file Group ID:Not on file Type:Self Pay Address: [place], [place] [employer] SELF PAY NO INSURANCE Member Subscriber Plan / Payer (Ef fective for All Dates) Name:Austin Ashton Saran Member ID:Not on file Relation to Subscriber:Not on file Name:AUSTIN ASHTON Subscriber ID:Not on file Address: [address] [place] [address] Payer ID:Not on file Group ID:Not on file Type:Self Pay Address: [place], [place] CARE SELF PAY NO INSURANCE Member Subscriber Plan / Payer (Ef fective for All Dates) Name:Austin Ashton Saran Member ID:Not on file Relation to Subscriber:Not on file Name:TONIE ASHTONETT Subscriber ID:Not on file Address: [address] [place] [address] Payer ID:Not on file Group ID:Not on file Type:Self Pay Address: [place], [place]
--- OUTSIDE RECORDS SUMMARY | 2025-01-16 01:06 | XMS_ITS | Patient Health Record ---
Author Organization [facility] Address [address] [place]. [address] [place] [address] Support Name Relationship Address Phone Austin Saldaña Guarantor Unknown [phone] Reason For Referral No Information Plan Of Treatment No Information Insurance Providers Payer Name Payer Address Payer Phone Subscriber Number Group Number Insured Name Patient Relationship to Insured Coverage Start Date Coverage End Date [facility] Choice/ choice Plus E2 [address] [place] [address] [id number] Austin Saldaña Self - patient is the insured
--- OUTSIDE RECORDS SUMMARY | 2025-01-16 01:06 | XMS_ITS | Encounter Summary ---
Author Organization [facility] Address [address] [place] [address] Care Team Providers Care Park Interpreter Name Role Phone Unavailable Primary Care Provider Unavailabl e Encounter Details Date Type Department Care Team (Late st Contact Info) Description 01/18/2005 Outpatient Historical [facility] Internal Medicine - [place] [address] [place] [address] Evaristo Rg MD [address] [place] [address] Social History Tobacco Use Types Packs/Day Years Used Date Smoking Tobacco: Never Assessed Sex and Gender Information Value Date Recorded Sex Assigned at Not on file 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
--- OUTSIDE RECORDS SUMMARY | 2025-01-16 01:06 | XMS_ITS | Clinical Summary ---
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 Gender Identity Not on file Sexual Orientation [...] 03/20/2023 11:25 AM CDT Plan of Treatment Health Maintenance Due Date Last Done Comments Colon Cancer Screening-Colonoscopy 1965 Depression Screening 1964 Hepatitis C Screening 1964 Prostate Cancer Screening-PSA 1964 DTaP/Tdap/Td Vaccine (1 - Tdap) 1975 Hepatitis B Screening 1982 Regular Well Visit/Exam 18-64 1982 Zoster Vaccine (1 of 2) 2014 Covid-19 Vaccine (2023-2 5 season) 2024 12/03/2020, 11/04/2020 Influenza Vaccine (#1) 2025 , 03/15/2020 Pneumococcal vaccine <65 Aged Out No longer eligible based on patient's age to complete this topic Insurance CHOICE PLUS CHOICE PLUS Member Subscriber Plan / Payer (Ef fective 2022-Present) Name:Austin Saldaña Relation to Subscriber:Self Name:Austin Saldaña Payer ID:[id number] (NAIC) Type:[facility] HMO/PPO Address: [place] [phone] Care Teams Studio Grip Relationship Specialty Start Date End Date Lucas Hinojosa MD PCP - General Family Practice 03/12/23
--- NOTE | 2025-01-16 01:16 | ECG_ITS ---
Test Date: 2025-01-16 01:19:35 Measurements Intervals [place] Rate: 82 P: 55 ND: 150 QRS: -45 QRSD: 164 T: 86 QT: 423 QTc: 494 Interpretive Statements SINUS RHYTHM POSSIBLE LEFT ATRIAL ENLARGEMENT [-0.1mV P-WAVE IN V1/V2] LEFT BUNDLE BRANCH BLOCK [120+ ms QRS DURATION, 80+ ms Q/S IN V1/V2, 85+ ms R IN I/aVL/V5/V6] No previous ECG available for comparison Electronically Signed On 01-16-2025 21:35:15 CDT by Alonso Chung M.D.
[2025-01-16 01:31] LABS: Hematocrit 49.9 % (42.0-52.0); Hemoglobin 17.1 g/dL (14.0-18.0); Immature Granulocyte Percent A 0.2 % (0-0.5); Lymphocytes Absolute Auto 3.03 K/mm3 (0.9-3.2); Mean Corpuscular HGB Conc 34.3 g/dl (32-36); Mean Corpuscular Hemoglobin 33.5 pg (26-34); Mean Corpuscular Volume 97.8 fl (80-100); Nucleated Red Blood Cells Absolute Auto 0.000 K/mm3 (0.0-0.012); Nucleated Red Blood Cells Perc 0.0 % (0.0-0.2); Platelet Count Result 229 k/mm3 (150-375); Red Blood Count 5.10 M/mm3 (4.6-6.20); White Blood Count 8.8 K/mm3 (4.5-10.0)
[2025-01-16 01:46] LABS: Alanine Aminotransferase 28 U/L (6-50); Albumin Level 4.5 g/dL (3.5-5.1); Alkaline Phosphatase 102 U/L (38-126); Anion Gap 10 mmol/L (4-12); Aspartate Amino Transferase 46 U/L (17-59); Bilirubin,Total 0.8 mg/dL (0.2-1.3); Blood Urea Nitrogen 16 mg/dL (9-20); Calcium 9.3 mg/dL (8.4-10.2); Carbon Dioxide 24 mmol/L (22-30); Chloride 104 mmol/L (98-107); Estimated CRCL calculation 89 ml/min; Estimated Glomerular Filt Rate > 60; Glucose 116 mg/dL (65-110); Potassium 4.1 mmol/L (3.4-5.0); Sodium 138 mmol/L (137-145); Total Protein 7.5 g/dL (6.3-8.2)
[2025-01-16 01:58] LABS: INR 0.9; Prothrombin Time 12.4 Seconds (11.1-14.7)
[2025-01-16 01:59] LABS: Partial Thromboplastin Time 26.2 Seconds (22.3-36.8)
[2025-01-16 02:38] LABS: NT Pro B Type Natriuretic Pept 415 pg/mL (19.9-100)
--- NOTE | 2025-01-16 03:33 | ED_ITS ---
HPI - SOB/Dyspnea General Chief Complaint: Shortness of Breath/Dyspnea Stated Complaint: coughing up blood, sob Time Seen by Provider: 01/16/25 02:52 Source: patient and family Mode of arrival: ambulatory Limitations: no limitations History of Present Illness HPI Narrative: Patient presents with report of increasing shortness of breath over the past 24 hours in addition to hemoptysis. He states initially he was coughing up pink/red foam but then started coughing up blood that was brighter red. Denies any edema, fevers, chills. Recently vacationed in [place]. Drove there. Notes that there were areas that were crowded and he also rode a roller coaster.. Symptoms started approximately 4:00 a.m. yesterday. He describes a burning sensation in his chest described as tightness but otherwise without tex chest pain. History of bronchitis although without previous bleeding. Denies any underlying cardiac or pulmonary history otherwise. Quit smoking 20 years ago. He is on Zepbound (lost weight on a higher dose previously, quit and now restarted on a low dose) as well as testosterone (dose of this decreased after he was noted to have elevated Hgb). Not on anticoagulation. History HTN. Describes a pleuritic nature to his symptoms. Primary care physician Dr. Hinojosa. Related Data Home Medications ?Medication ?Instructions ?Recorded ?Confirmed ?Last Taken ?Type allopurinol 100 mg tablet 100 mg PO .prn PRN Cough 02/11/24 01/16/25 Unknown History multivitamin (Daily Multi-Vitamin 1 tablet PO DAILY 01/16/25 01/16/25 01/15/25 History tablet) omega 7-[id number]-fish oil 1,000 mg 1 cap PO DAILY 01/16/25 01/16/25 01/15/25 History (120 mg-180 mg) capsule (Fish Oil) perfect amino 1 sc PO DAILY 01/16/25 01/16/25 01/15/25 History turmeric 400 mg capsule 400 mg PO DAILY liver function 01/16/25 01/16/25 01/15/25 History vitamin E 268 mg (400 unit) capsule 268 mg PO DAILY 01/16/25 01/16/25 01/15/25 History Allergies Allergy/AdvReac Type Severity Reaction Status Date / Time No Known Allergies Allergy Verified 01/16/25 09:23 [facility] Past Medical History Medical History Hepatic steatosis Right carpal tunnel syndrome Essential hypertension Hepatitis C virus infection resolved after antiviral drug therapy Polyp of colon Family History Family History (Updated 01/16/25 @ 09:41 by Radha Cordon RN) Mother Family history of cardiovascular disease Father Family history of malignant neoplasm Grandparent Brain cancer Memory change Cerebrovascular accident Heart disease Sibling Heart disease Family history of cardiovascular disease Social History Social History Smoking packs per day: 1.5 Smoking cigarettes per day: 30.0 Years smoked: 18 Smoking pack-years: 27.00 Smoking status: Former smoker Tobacco type: cigarettes Second hand tobacco smoke exposure: No Smoking end date: 06/24/19 Alcohol intake: current Drinks per week: 6 Alcohol use details: occasionally, beer/bourbon Substance use: never Substance use type: does not use Do You Feel Safe in your Home?: Yes Lack of Transportation: No Lack of Food: Never True Current Housing: I Have Housing Concerned About Future Housing: No Difficulty Paying Gas/Electric Bills: No Difficulty Paying for Meds: No Currently Unemployed: No Education: High School Diploma/GED Difficulty w/ Childcare or Family Care: No Living arrangements: with family Spiritual care concerns: No Exam 2 Narrative: GENERAL: Well-appearing, well-nourished, and in no acute distress. HEAD: Normocephalic, atraumatic. EYES: Non injected, non icteric ENT: Nares clear, no rhinorrhea or epistaxis. Gross auditory acuity intact. NECK: Supple. No meningismus. CHEST: Speaking in full sentences. No respiratory distress. Coarse breath sounds, particularly on the right. HEART: Regular rate and rhythm. . ABDOMEN: Soft, nondistended. No rigidity or guarding. Not peritoneal EXTREMITIES: Normal range of motion. No lower extremity edema. SKIN: Warm, dry, no rash. NEURO: No focal deficits. Alert and oriented. Answering questions. Following commands. Normal speech without aphasia or dysarthria. PSYCH: Normal mood and affect. Course Vital Signs Vital signs: Vital Signs Temperature 98.6 F 01/16/25 01:10 Pulse Rate 100 01/16/25 01:10 Respiratory Rate 18 01/16/25 01:10 Blood Pressure 161/103 H 01/16/25 01:10 Pulse Oximetry 90 01/16/25 01:10 Oxygen Delivery Room Air 01/16/25 01:10 Temperature 97.9 F 01/17/25 08:00 Pulse Rate 66 01/17/25 08:20 Respiratory Rate 20 01/17/25 08:00 Blood Pressure 131/77 01/17/25 08:00 Pulse Oximetry 97 01/17/25 08:00 Oxygen Delivery Nasal Cannula 01/17/25 04:00 Oxygen Flow Rate 2 01/17/25 04:00 MDM - SOB/Dyspnea MDM Narrative Medical decision making narrative: Patient presents with increasing shortness of breath as well as hemoptysis. He reports that initially he was having some pink/red foamy frothy sputum then was coughing up blood that was brighter red. Symptoms started approximately 4:00 a.m.. He describes a burning in his chest, like a tightness. Quit smoking 20+ years ago. Not on anticoagulation. History hypertension. In the emergency department he is afebrile with vital signs notable for hypertension and initially reported hypoxia. This improves to 96% without intervention. BNP mildly elevated not to a degree to suggest acute heart failure based on the reference range of the assay especially for patient's age. Patient has 2 troponins that are technically within normal limits although with a positive delta. 6 hour troponin is ordered. CT without evidence of PE although there is notation of pulmonary edema w/o consolidation. While his symptoms therefore might represent bronchitis, I do believe patient would benefit from admission for furhter work up. 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 Has otherwise been stable. Differential Diagnosis Differential diagnosis: Likely congestive heart failure (Including flash pulmonary edema/scape), community acquired pneumonia, pulmonary embolism and other (Bronchitis, acute viral syndrome,) Lab Data Attestation: I reviewed the patient's lab results. Lab results narrative: No abnormalities on CBC with differential 01/17/25 05:40 01/17/25 05:40 Labs: Lab Results 01/16/25 01/16/25 01/16/25 Range/Units 01:24 01:25 03:51 WBC 8.8 (4.5-10.0) K/mm3 RBC 5.10 (4.6-6.20) M/mm3 Hgb 17.1 (14.0-18.0) g/dL Hct 49.9 (42.0-52.0) % MCV 97.8 (80-100) fl MCH 33.5 (26-34) pg MCHC 34.3 (32-36) g/dl RDW 12.8 (11.5-14.5) % Plt Count 229 (150-375) k/mm3 MPV 9.7 (7.4-10.4) fl Immature Gran % (Auto) 0.2 (0-0.5) % Neut % (Auto) 54.4 (45.5-73.1) % Lymph % (Auto) 34.6 (18.3-44.2) % [place] % (Auto) 7.3 (2.6-8.5) % Eos % (Auto) 3.0 (0-4.4) % Baso % (Auto) 0.5 (0.2-1.2) % Lymph # (Auto) 3.03 (0.9-3.2) K/mm3 [place] # (Auto) 0.6 (0.1-0.6) K/mm3 Eos # (Auto) 0.3 (0-0.3) K/mm3 Baso # (Auto) 0.0 (0.0-0.1) K/mm3 Abs Immat Gran (auto) 0.02 (0.00-0.031) K/mm3 Absolute Neuts (auto) 4.8 (1.3-6.7) K/mm3 Absolute Nucleated RBC 0.000 (0.0-0.012) K/mm3 Nucleated RBC % 0.0 (0.0-0.2) % PT 12.4 (11.1-14.7) Seconds INR 0.9 APTT 26.2 (22.3-36.8) Seconds Sodium 138 (137-145) mmol/L Potassium 4.1 (3.4-5.0) mmol/L Chloride 104 (98-107) mmol/L Carbon Dioxide 24 (22-30) mmol/L Anion Gap 10 (4-12) mmol/L BUN 16 (9-20) mg/dL Creatinine 0.91 (0.7-1.3) mg/dL Estim Creat Clear Calc 89 ml/min Estimated GFR > 60 (59 - ) Glucose 116 H (65-110) mg/dL Calcium 9.3 (8.4-10.2) mg/dL Total Bilirubin 0.8 (0.2-1.3) mg/dL AST 46 (17-59) U/L ALT 28 (6-50) U/L Alkaline Phosphatase 102 (38-126) U/L Troponin I 0.014 (0.000-0.034) ng/mL NT-Pro-B Natriuret Pep 415 H (19.9-100) pg/mL Total Protein 7.5 (6.3-8.2) g/dL Albumin 4.5 (3.5-5.1) g/dL Influenza A (RT-PCR) Negative (Negative) Influenza B (RT-PCR) Negative (Negative) RSV (RT-PCR) Negative (Negative) SARS-CoV-2 RNA (RT-PCR) Negative (Negative) 01/16/25 01/16/25 Range/Units 04:50 07:54 WBC (4.5-10.0) K/mm3 RBC (4.6-6.20) M/mm3 Hgb (14.0-18.0) g/dL Hct (42.0-52.0) % MCV (80-100) fl MCH (26-34) pg MCHC (32-36) g/dl RDW (11.5-14.5) % Plt Count (150-375) k/mm3 MPV (7.4-10.4) fl Immature Gran % (Auto) (0-0.5) % Neut % (Auto) (45.5-73.1) % Lymph % (Auto) (18.3-44.2) % [place] % (Auto) (2.6-8.5) % Eos % (Auto) (0-4.4) % Baso % (Auto) (0.2-1.2) % Lymph # (Auto) (0.9-3.2) K/mm3 [place] # (Auto) (0.1-0.6) K/mm3 Eos # (Auto) (0-0.3) K/mm3 Baso # (Auto) (0.0-0.1) K/mm3 Abs Immat Gran (auto) (0.00-0.031) K/mm3 Absolute Neuts (auto) (1.3-6.7) K/mm3 Absolute Nucleated RBC (0.0-0.012) K/mm3 Nucleated RBC % (0.0-0.2) % PT (11.1-14.7) Seconds INR APTT (22.3-36.8) Seconds Sodium (137-145) mmol/L Potassium (3.4-5.0) mmol/L Chloride (98-107) mmol/L Carbon Dioxide (22-30) mmol/L Anion Gap (4-12) mmol/L BUN (9-20) mg/dL Creatinine (0.7-1.3) mg/dL Estim Creat Clear Calc ml/min Estimated GFR (59 - ) Glucose (65-110) mg/dL Calcium (8.4-10.2) mg/dL Total Bilirubin (0.2-1.3) mg/dL AST (17-59) U/L ALT (6-50) U/L Alkaline Phosphatase (38-126) U/L Troponin I 0.020 D 0.016 (0.000-0.034) ng/mL NT-Pro-B Natriuret Pep (19.9-100) pg/mL Total Protein (6.3-8.2) g/dL Albumin (3.5-5.1) g/dL Influenza A (RT-PCR) (Negative) Influenza B (RT-PCR) (Negative) RSV (RT-PCR) (Negative) SARS-CoV-2 RNA (RT-PCR) (Negative) Imaging Data Attestation: I personally reviewed and interpreted this imaging study as follows: My impression: Right middle lobe haziness however without tex consolidation on my independent interpretation of chest x-ray Radiologist's impression: Impressions Chest CTA 01/16/25 06:45 IMPRESSION: No pulmonary embolus. No thoracic aortic dissection. Pulmonary edema without consolidation. IMPRESSION: Mild pulmonary vascular congestion, without focal infiltrate or effusion. ECG Data EKG #1: Attestation: I personally reviewed and interpreted this ECG as follows: ECG completion date: 01/16/25 ECG completion time: 01:19 Prior ECG tracings: available for review (Previous EKG did not have the Left bundle-branch block ) Interpretation: Normal sinus rhythm at a rate of 82 beats per minute. OK interval 150. QRS 164. QT/QTC 423/494. Left axis deviation (QRS is positive with dominant R wave in Lead I; QRS is negative with dominant S wave in leads II, III, and aVF). Left bundle-branch block with QRS duration greater than 120 milliseconds, dominant S-wave in V1, broad monophasic R-wave in lateral leads (1, aVL, V5-V6), absence of Q-waves in lateral leads. EKG #2: Attestation: I personally reviewed and interpreted this ECG as follows: ECG completion date: 01/16/25 ECG completion time: 04:54 Interpretation: Normal sinus rhythm at a rate of 73 beats per minute. OK interval 130. QRS 164. QT/QTC 466/491. Left axis deviation (QRS is positive with dominant R wave in Lead I; QRS is negative with dominant S wave in leads II, III, and aVF). Intraventricular conduction delay. EKG #3: Attestation: I personally reviewed and interpreted this ECG as follows: ECG completion date: 01/16/25 ECG completion time: 07:57 Interpretation: Normal sinus rhythm at a rate of 67 beats per minute. OK interval 140. QRS 162. QT/QTC 455/471. Left axis deviation (QRS is positive with dominant R wave in Lead I; QRS is negative with dominant S wave in leads II, III, and aVF). Left bundle-branch block with QRS duration greater than 120 milliseconds, dominant S-wave in V1, broad monophasic R-wave in lateral leads (1, aVL, V5-V6), absence of Q-waves in lateral leads. Discharge Plan Discharge Clinical Impression: Cough with hemoptysis, Burning chest pain, Bronchitis, Left axis deviation, Left bundle branch block (LBBB) determined by electrocardiography Pulmonary edema Qualifiers: Chronicity: acute Qualified Code(s): J81.0 - Acute pulmonary edema Patient Disposition: Still a Patient Condition: Stable
--- OUTSIDE RECORDS SUMMARY | 2025-01-16 03:34 | XMS_ITS | Encounter Summary ---
Author Organization [facility] Address [address] [place] [address] Care Team Providers Care Turning And Beading Machine Operator Name Role Phone Unavailable Primary Care Provider Unavailabl e Encounter Details Date Type Department Care Team (Late st Contact Info) Description 01/18/2005 Outpatient Historical [facility] Internal Medicine - [place] [address] [place] [id number] Evaristo Rg MD [address] [place] [address] Social History Tobacco Use Types Packs/Day Years Used Date Smoking Tobacco: Never Assessed Sex and Gender Information Value Date Recorded Sex Assigned at Not on file 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
--- OUTSIDE RECORDS SUMMARY | 2025-01-16 03:34 | XMS_ITS | Encounter Summary ---
Author Organization Address [address] [place] [address] Care Team Providers Care Repairer Finished Metal Name Role Phone Unavailable Primary Care Provider Unavailabl e Encounter Details Date Type Department Care Team (Late st Contact Info) Description 01/18/2005 Outpatient Historical [facility] Internal Medicine - [place] [address] [place] [address] Evaristo Rg MD [address] [place] [address] Social History Tobacco Use Types Packs/Day Years Used Date Smoking Tobacco: Never Assessed Sex and Gender Information Value Date Recorded Sex Assigned at Not on file 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
--- OUTSIDE RECORDS SUMMARY | 2025-01-16 03:34 | XMS_ITS | Clinical Summary ---
Author Organization [facility] Address [address] [place] [address] Care Team Providers Care Cut Out Press Operator Name Role Phone Unavailable Primary Care Provider Unavailabl e Source Comments [facility],non-owned Affiliates and Associated Physician Practices is amultiple site organization consisting of ambulatory clinics and hospital sitesin [place], [place]. This disclosure is being madepursuant to the Care Everywhere program and may not contain all information available regarding this patient. 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 Gender Identity Not on file Sexual Orientation [...] patient's age to complete this topic Insurance [facility] SELF PAY NO INSURANCE Member Subscriber Plan / Payer (Ef fective for All Dates) Name:Austin Ashton Member ID:Not on file Relation to Subscriber:Not on file Name:AUSTIN ASHTON Subscriber ID:Not on file Address: [address] [place] [address] Payer ID:Not on file Group ID:Not on file Type:Self Pay Address: [place], [place] [employer] SELF PAY NO INSURANCE Member Subscriber Plan / Payer (Ef fective for All Dates) Name:Austin Ashton Saran Member ID:Not on file Relation to Subscriber:Not on file Name:AUSTIN ASHTON Subscriber ID:Not on file Address: [address] [place] [address] Payer ID:Not on file Group ID:Not on file Type:Self Pay Address: [place], [place] CARE SELF PAY NO INSURANCE Member Subscriber Plan / Payer (Ef fective for All Dates) Name:Austin Ashton Saran Member ID:Not on file Relation to Subscriber:Not on file Name:TONIE ASHTONETT Subscriber ID:Not on file Address: [address] [place] [address] Payer ID:Not on file Group ID:Not on file Type:Self Pay Address: [place], [place]
--- OUTSIDE RECORDS SUMMARY | 2025-01-16 03:34 | XMS_ITS | Encounter Summary ---
Author Organization [facility] Address [address] [place] [address] Care Team Providers Care Solid Waste Collection Worker Name Role Phone Unavailable Primary Care Provider Unavailabl e Encounter Details Date Type Department Care Team (Late st Contact Info) Description 01/18/2005 Outpatient Historical [facility] Internal Medicine - [place] [address] [place] [phone] Evaristo Rg MD [address] [place] [address] Social History Tobacco Use Types Packs/Day Years Used Date Smoking Tobacco: Never Assessed Sex and Gender Information Value Date Recorded Sex Assigned at Not on file 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
--- OUTSIDE RECORDS SUMMARY | 2025-01-16 03:34 | XMS_ITS | Referral Summary ---
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
--- OUTSIDE RECORDS SUMMARY | 2025-01-16 03:34 | XMS_ITS | Clinical Summary ---
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
--- OUTSIDE RECORDS SUMMARY | 2025-01-16 03:34 | XMS_ITS | Clinical Summary ---
Author Organization [facility] Address [address] [place]: Epic Prelude [place]T [place] [address] Care Team Providers Care Wind Turbine Blade Repair Technician Name Role Phone Unavailable Primary Care Provider [...] on file Legal Sex Male 2:45 AM PLANT DIRECTOR Gender Identity Not on file Sexual Orientation [...]
[2025-01-16 04:10] LABS: Troponin I 0.014 ng/mL (0.000-0.034)
[2025-01-16 04:38] LABS: Influenza A QL RT-PCR Negative (Negative); Influenza B QL RT-PCR Negative (Negative); RSV RNA, RT-PCR Negative (Negative); SARS-CoV-2 RNA PCR Negative (Negative)
--- NOTE | 2025-01-16 04:41 | ECG_ITS ---
Test Date: 2025-01-16 04:54:15 Measurements Intervals [place] Rate: 73 P: 42 AR: 130 QRS: -46 QRSD: 164 T: 77 QT: 466 QTc: 514 Interpretive Statements SINUS RHYTHM LEFT AXIS DEVIATION [QRS AXIS < -30] LEFT BUNDLE-BRANCH BLOCK Compared to ECG 01/16/2025 01:19:35 NO SIGNIFICANT CHANGES Electronically Signed On 01-17-2025 14:00:16 CDT by Alonso Chung M.D.
[2025-01-16 05:20] LABS: Troponin I 0.020 ng/mL (0.000-0.034)
[2025-01-16] MEDS: BELLADONNA ALK/PHENOB ELIX 10 ML, MAG HYDROX/ALUMINUM HYD/SIMETH 30 ML, LIDOCAINE 2% VI... PO (07:03)
--- NOTE | 2025-01-16 07:50 | ECG_ITS ---
Test Date: 2025-01-16 07:57:14 Measurements Intervals [place] Rate: 67 P: 50 MN: 140 QRS: -47 QRSD: 162 T: 78 QT: 455 QTc: 484 Interpretive Statements SINUS RHYTHM LEFT AXIS DEVIATION [QRS AXIS < -30] LEFT BUNDLE BRANCH BLOCK [120+ ms QRS DURATION, 80+ ms Q/S IN V1/V2, 85+ ms R IN I/aVL/V5/V6] Compared to ECG 01/16/2025 04:54:15 No significant changes Electronically Signed On 01-17-2025 14:04:30 CDT by Alonso Chung M.D.
[2025-01-16 08:32] LABS: Troponin I 0.016 ng/mL (0.000-0.034)
--- NOTE | 2025-01-16 10:39 | ADMGEN ---
This patient, Austin Saldaña, was admitted to IMU Room 210-01. Patient/family oriented to hospital policies and general routines including ID bracelet, bed and alarms, visiting hours, pain management, procedures, bathroom and other care routines, personal items, smoking policy, room service/diet, and visiting hours. Information on how to activate the Rapid Response Team has been discussed. Patient/Family are encouraged to report perceived risks to care and to ask questions if they do not understand what they are told or what they should do. Patient resting in bed at this time with at bedside. Patient voiced no complaints or concerns at this time. Denies pain and SOB at this time. head to toe assessment completed and documented. Personal items and call light in reach. Bed low and locked. Will continue to monitor. Harshil Cordon RN
--- NOTE | 2025-01-16 14:04 | P.HP_ITS ---
H&P: HPI History of Present Illness Date/Time: 01/16/25 14:04 Chief Complaint: SOB and Hemoptysis Narrative: 59 yo male with PMH of prediabetes and HTN, who presented to the ER on account chest pain and SOb with hemoptysis. Patient noted that he woke this morning at about 12am with SOb, wheezing and coughing up blood. Noted the symptoms started a day prior but with frothy oink sputum and today he coughed up bright red blood which caused him to presented to the ER for proper eval and care. Noted mild chest pain described as tightness alogn with wheezing. otherwise no radiation, no vomiting, no diarrhea, no abd pain and no focal symptoms. ER eval notable for BP 162/101, Tropnin negative x2, NTproBNP 415, CTA Chest showed pulmonary edema. EKG showed Sinus rhythm and LBBB new Review of Systems Review of Systems: All other systems were reviewed and negative except as noted n the HPI above [facility] Past Medical History Medical History Hepatic steatosis Right carpal tunnel syndrome Essential hypertension Hepatitis C virus infection resolved after antiviral drug therapy Polyp of colon Family History Family History (Updated 01/16/25 @ 09:41 by Radha Cordon RN) Mother Family history of cardiovascular disease Father Family history of malignant neoplasm Grandparent Brain cancer Memory change Cerebrovascular accident Heart disease Sibling Heart disease Family history of cardiovascular disease Social History Social History Smoking packs per day: 1.5 Smoking cigarettes per day: 30.0 Years smoked: 18 Smoking pack-years: 27.00 Smoking status: Former smoker Tobacco type: cigarettes Second hand tobacco smoke exposure: No Smoking end date: 06/24/19 Alcohol intake: current Drinks per week: 6 Alcohol use details: occasionally, beer/bourbon Substance use: never Substance use type: does not use Do You Feel Safe in your Home?: Yes Lack of Transportation: No Lack of Food: Never True Current Housing: I Have Housing Concerned About Future Housing: No Difficulty Paying Gas/Electric Bills: No Difficulty Paying for Meds: No Currently Unemployed: No Education: High School Diploma/GED Difficulty w/ Childcare or Family Care: No Living arrangements: with family Spiritual care concerns: No Meds Home Medications and Allergies Home Medications ?Medication ?Instructions ?Recorded ?Confirmed ?Type inhalational spacing device #1 ea 08/17/22 04/17/24 Rx (Flexichamber spacer) syringe with needle 3 mL 25 gauge #50 ea 02/15/23 04/17/24 Rx x 1 allopurinol 100 mg tablet 100 mg PO .prn PRN Cough 02/11/24 01/16/25 History tirzepatide (weight loss) 12.5 12.5 mg (0.5 mL) subcut WEEKLY #2 04/29/24 01/16/25 Rx mg/0.5 mL subcutaneous pen mL injector (Zepbound) losartan 25 mg tablet See Rx Instructions .Route 11/27/24 01/16/25 Rx .COMPLEX #90 tabs testosterone cypionate 200 mg/mL 150 mg (0.75 mL) IM .COMPLEX #10 mL 12/15/24 01/16/25 Rx intramuscular oil multivitamin (Daily Multi-Vitamin 1 tablet PO DAILY 01/16/25 01/16/25 History tablet) omega 4-ivf-peh-fish oil 1,000 mg 1 cap PO DAILY 01/16/25 01/16/25 History (120 mg-180 mg) capsule (Fish Oil) perfect amino 01/16/25 History turmeric 400 mg capsule 400 mg PO DAILY liver function 01/16/25 01/16/25 History vitamin E 268 mg (400 unit) capsule 268 mg PO DAILY 01/16/25 01/16/25 History Allergies Allergy/AdvReac Type Severity Reaction Status Date / Time No Known Allergies Allergy Verified 01/16/25 09:23 Vital Signs Vital Signs - 24 hr 01/16/25 01:10 01/16/25 01:15 01/16/25 01:26 Temperature 98.6 F Pulse Rate 100 99 Respiratory Rate 18 21 H Blood Pressure 161/103 H 162/101 H Pulse Oximetry 90 90 96 Oxygen Delivery Room Air Room Air 01/16/25 01:27 01/16/25 01:46 01/16/25 02:00 Temperature Pulse Rate 80 75 77 Respiratory Rate 16 18 Blood Pressure 131/81 148/80 H Pulse Oximetry 97 93 Oxygen Delivery 01/16/25 02:16 01/16/25 02:30 01/16/25 03:46 Temperature Pulse Rate 77 79 78 Respiratory Rate 17 13 20 Blood Pressure 140/81 141/91 H 160/92 H Pulse Oximetry 93 92 94 Oxygen Delivery 01/16/25 04:30 01/16/25 05:45 01/16/25 06:38 Temperature Pulse Rate 87 74 80 Respiratory Rate 20 15 17 Blood Pressure 156/89 H Pulse Oximetry 91 95 95 Oxygen Delivery 01/16/25 06:46 01/16/25 07:30 01/16/25 08:16 Temperature 97.8 F 97.7 F Pulse Rate 78 78 72 Respiratory Rate 12 15 14 Blood Pressure 165/91 H 154/80 H 139/86 Pulse Oximetry 98 96 100 Oxygen Delivery 01/16/25 09:05 01/16/25 09:05 01/16/25 10:00 Temperature 98.3 F Pulse Rate 68 73 Respiratory Rate 18 Blood Pressure 147/77 H Pulse Oximetry 95 95 Oxygen Delivery Room Air 01/16/25 12:00 01/16/25 12:00 01/16/25 12:00 Temperature 98.4 F Pulse Rate 69 67 Respiratory Rate 16 Blood Pressure 142/74 H Pulse Oximetry 95 96 Oxygen Delivery Room Air Exam Narrative: General: alert and comfortable Eyes: EOMI, PERRLA ENNT External ears normal, Neck is supple, no masses, Respiratory systems: Clear to auscultation Cardiovascular S1, S2, normal rhythm, no murmur, rub, or gallop; no thrill or palpable murmurs on palpation. Gastrointestinal: soft, non-tender, and non-distended abdomen with no masses; BS present Skin: no rash, lesions, ulcerations, subcutaneous nodules or induration Musculoskeletal: no abnormality and no tenderness, normal ROM Neurologic: Alert and oriented x3, non focal Mental Status Exam: normal affect H&P: Results Labs Labs: Short CBC 01/16/25 Range/Units 01:25 WBC 8.8 (4.5-10.0) K/mm3 Hgb 17.1 (14.0-18.0) g/dL Hct 49.9 (42.0-52.0) % Plt Count 229 (150-375) k/mm3 [facility] 01/16/25 01:25 Sodium 138 Potassium 4.1 Chloride 104 Carbon Dioxide 24 BUN 16 Creatinine 0.91 Glucose 116 H Calcium 9.3 Cardiac Enzymes 01/16/25 01/16/25 01/16/25 Range/Units 01:25 04:50 07:54 Troponin I 0.014 0.020 D 0.016 (0.000-0.034) ng/mL Liver Function 01/16/25 Range/Units 01:25 Total Bilirubin 0.8 (0.2-1.3) mg/dL AST 46 (17-59) U/L ALT 28 (6-50) U/L Alkaline Phosphatase 102 (38-126) U/L Albumin 4.5 (3.5-5.1) g/dL Assessment and Plan Assessment and plan (1) Chest pain: Code(s): R07.9 - Chest pain, unspecified Status: Acute Plan Chest pain and pulm edema CT chest showed pulm edema ECHO ordered Started on lasix 20mg bid cardiology consulted Hemoptysis likely from CHF no lesion on CT chest Pulmonology consulted HTN contineu home meds Prediabetes Contineu Zepbound DVT prophylaxis on Sq lovenox Full code SDM: Violeta Saldaña Hospitalist [facility] Advance Care Plan I have confirmed that the patient's Advanced Care Plan is present, code status is documented, or surrogate decision maker is listed in patient medical record.: Yes Medication Reconciliation I have utilized all available resources to obtain, update and review the p atients current medications (includes all prescriptions, OTC, herbals, cannabis, and nutritional supplements).: Yes
[2025-01-16] MEDS: PERFLUTREN LIPID MICROSPHERES 1.5 ML VIAL DILUTED TO 10 ML TOTAL VOLUME IV PUSH (14:39)
--- NOTE | 2025-01-16 14:39 | IVDEFINITY ---
Prior to administration of IV Definity the patient was educated on the risks and benefits of the imaging enhancing agent including potential adverse side effects. The patient verbalized understanding. Allergies were verified. No exclusion criteria were identified and at least one of the following inclusion criteria were met: 1) physician request, 2) patient technically difficult to image (per the [place] [employer]chocardi[employer] guidelines of two or more segments not discernable within the apical view), or 3) questionable left ventricular function. ?
[2025-01-16] MEDS: FUROSEMIDE INJ 40 MG/4 ML VIAL 20 MG IV PUSH (16:29)
[2025-01-16] MEDS: LOSARTAN POTASSIUM 25 MG TABLET BY MOUTH (16:29)
--- NOTE | 2025-01-16 17:41 | P.CONCA_ITS ---
Assessment and Plan Assessment and plan (1) Systolic dysfunction: Code(s): I51.9 - Heart disease, unspecified Status: Acute Assessment and Plan: Severe. No CO by serial troponin. 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 Advise to avoid alcohol. On Lasix 20 mg IV BID. Appears to be euvolemic. Start medical therapy including Carvedilol 3.125 mg BID, Jardiance 10 mg daily, and already on Losartan. Discuss Life vest to prevent sudden cardiac arrest and he will consider it. Placed order. Discuss LHC on Saturday to r/o CAD with new onset LBBB, and patient is agreeable. (2) Essential hypertension: Code(s): I10 - Essential (primary) hypertension Status: Acute Assessment and Plan: Mildly high. (3) Left bundle branch block (LBBB) determined by electrocardiography: Code(s): I44.7 - Left bundle-branch block, unspecified Status: Acute Assessment and Plan: New onset. But no CO by serial troponin. History of Present Illness History of Present Illness Consult date/time: 01/16/25 17:41 Reason For Visit: Chest pain/tightness;rising trops;hemotysis;pulm e Narrative: 59 yr old man who is my regular cardiology patient and a patient of Dr. Hinojosa presents to ER with sob. He has a history of dyslipidemia, hypertension, covid infection on 05/10/20. States he was on a recent trip from Saturday to Saturday at [place], [place] going to [facility] and [facility] ([place], [place]), was consuming excessive alcohol (normally consumes alcohol on weekends) with bourbon and beer and salty food. On Saturday at 4 am he woke up sob, chest pain with inspiration, coughing and expectorated foamy pink blood tinged sputum. Then they drove home that day and Saturday night he had similar symptoms. He came to ER. Currently he has chest pressure only with inspiration and not sob. He also has chronic lower back pain and some pain in bilateral thighs that get better as soon as he gets up and walks. Denies orthopnea, PND, edema, dizziness, palpitations Normally he can walk miles now without any problems. Cardiovascular Procedures Glass Sander Belt:: 03/20/23 CTA of heart at [facility]: RCA with minimal atherosclerosis, LAD mid with small plaque. Calcium score 0. Electrophysiology:: 04/17/24 EKG: Sinus rhythm. 02/28/23 EKG: Sinus rhythm. Stress Tests:: 10/18/20 Stress test: Negative; exercised for 9 minutes. Review of Systems 2 Review of Systems: All systems reviewed & are unremarkable except as noted in HPI and below Constitutional: Constitutional: Reports as per HPI, Denies chills and Denies fever(s) Cardiovascular: Cardiovascular: Reports as per HPI, Reports chest pain and Denies irregular heart rhythm Respiratory: Respiratory: Reports as per HPI, Reports hemoptysis and Reports dyspnea Gastrointestinal: Gastrointestinal: Reports as per HPI and Denies abdominal pain Genitourinary: Genitourinary: Reports as per HPI and Denies dysuria Musculoskeletal: Musculoskeletal: Reports as per HPI and Reports back pain Neurologic: Reports as per HPI, Denies dizziness and Denies syncope [facility] Past Medical History Medical History Hepatic steatosis Right carpal tunnel syndrome Essential hypertension Hepatitis C virus infection resolved after antiviral drug therapy Polyp of colon Family History Family History (Updated 01/16/25 @ 09:41 by Radha Cordon RN) Mother Family history of cardiovascular disease Father Family history of malignant neoplasm Grandparent Brain cancer Memory change Cerebrovascular accident Heart disease Sibling Heart disease Family history of cardiovascular disease Social History Social History Smoking packs per day: 1.5 Smoking cigarettes per day: 30.0 Years smoked: 18 Smoking pack-years: 27.00 Smoking status: Former smoker Tobacco type: cigarettes Second hand tobacco smoke exposure: No Smoking end date: 06/24/19 Alcohol intake: current Drinks per week: 6 Alcohol use details: occasionally, beer/bourbon Substance use: never Substance use type: does not use Do You Feel Safe in your Home?: Yes Lack of Transportation: No Lack of Food: Never True Current Housing: I Have Housing Concerned About Future Housing: No Difficulty Paying Gas/Electric Bills: No Difficulty Paying for Meds: No Currently Unemployed: No Education: High School Diploma/GED Difficulty w/ Childcare or Family Care: No Living arrangements: with family Spiritual care concerns: No Meds Home Medications and Allergies Home Medications ?Medication ?Instructions ?Recorded ?Confirmed ?Type allopurinol 100 mg tablet 100 mg PO .prn PRN Cough 02/11/24 01/16/25 History tirzepatide (weight loss) 12.5 12.5 mg (0.5 mL) subcut WEEKLY #2 04/29/24 01/16/25 Rx mg/0.5 mL subcutaneous pen mL injector (Zepbound) losartan 25 mg tablet See Rx Instructions .Route 11/27/24 01/16/25 Rx .COMPLEX #90 tabs testosterone cypionate 200 mg/mL 150 mg (0.75 mL) IM .COMPLEX #10 mL 12/15/24 01/16/25 Rx intramuscular oil multivitamin (Daily Multi-Vitamin 1 tablet PO DAILY 01/16/25 01/16/25 History tablet) omega 6-pcl-bob-fish oil 1,000 mg 1 cap PO DAILY 01/16/25 01/16/25 History (120 mg-180 mg) capsule (Fish Oil) perfect amino 1 sc PO DAILY 01/16/25 01/16/25 History turmeric 400 mg capsule 400 mg PO DAILY liver function 01/16/25 01/16/25 History vitamin E 268 mg (400 unit) capsule 268 mg PO DAILY 01/16/25 01/16/25 History Allergies Allergy/AdvReac Type Severity Reaction Status Date / Time No Known Allergies Allergy Verified 01/16/25 09:23 Vital Signs Vital Signs - 24 hr 01/16/25 01:10 01/16/25 01:15 01/16/25 01:26 Temperature 98.6 F Pulse Rate 100 99 Respiratory Rate 18 21 H Blood Pressure 161/103 H 162/101 H Pulse Oximetry 90 90 96 Oxygen Delivery Room Air Room Air 01/16/25 01:27 01/16/25 01:46 01/16/25 02:00 Temperature Pulse Rate 80 75 77 Respiratory Rate 16 18 Blood Pressure 131/81 148/80 H Pulse Oximetry 97 93 Oxygen Delivery 01/16/25 02:16 01/16/25 02:30 01/16/25 03:46 Temperature Pulse Rate 77 79 78 Respiratory Rate 17 13 20 Blood Pressure 140/81 141/91 H 160/92 H Pulse Oximetry 93 92 94 Oxygen Delivery 01/16/25 04:30 01/16/25 05:45 01/16/25 06:38 Temperature Pulse Rate 87 74 80 Respiratory Rate 20 15 17 Blood Pressure 156/89 H Pulse Oximetry 91 95 95 Oxygen Delivery 01/16/25 06:46 01/16/25 07:30 01/16/25 08:16 Temperature 97.8 F 97.7 F Pulse Rate 78 78 72 Respiratory Rate 12 15 14 Blood Pressure 165/91 H 154/80 H 139/86 Pulse Oximetry 98 96 100 Oxygen Delivery 01/16/25 09:05 01/16/25 09:05 01/16/25 10:00 Temperature 98.3 F Pulse Rate 68 73 Respiratory Rate 18 Blood Pressure 147/77 H Pulse Oximetry 95 95 Oxygen Delivery Room Air 01/16/25 12:00 01/16/25 12:00 01/16/25 12:00 Temperature 98.4 F Pulse Rate 69 67 Respiratory Rate 16 Blood Pressure 142/74 H Pulse Oximetry 95 96 Oxygen Delivery Room Air 01/16/25 14:00 01/16/25 16:00 01/16/25 16:00 Temperature Pulse Rate 67 69 Respiratory Rate Blood Pressure Pulse Oximetry 96 Oxygen Delivery Room Air 01/16/25 16:00 Temperature 98 F Pulse Rate 64 Respiratory Rate 18 Blood Pressure 147/97 H Pulse Oximetry 98 Oxygen Delivery Exam 2 Const: General: cooperative, healthy appearing and comfortable Resp: Auscultation: clear to auscultation bilaterally, no crackles, no rales, no rhonchi and no wheezes Cardio: Rate: regular rate Rhythm: regular rhythm Heart sounds: no murmurs Peripheral pulses: dorsalis pedis present GI: GI Palp: No abdominal tenderness and Yes Soft to palpation Neuro: General: oriented to person, oriented to place and oriented to time Extrem: Right lower extremity: no edema Left lower extremity: no edema Results Labs and Meds 01/16/25 01:25 01/16/25 01:25 Lab results: Cardiac Enzymes 01/16/25 01/16/25 01/16/25 Range/Units 01:25 04:50 07:54 AST 46 (17-59) U/L Troponin I 0.014 0.020 D 0.016 (0.000-0.034) ng/mL Coagulation 01/16/25 Range/Units 01:24 PT 12.4 (11.1-14.7) Seconds APTT 26.2 (22.3-36.8) Seconds CBC 01/16/25 Range/Units 01:25 WBC 8.8 (4.5-10.0) K/mm3 RBC 5.10 (4.6-6.20) M/mm3 Hgb 17.1 (14.0-18.0) g/dL Hct 49.9 (42.0-52.0) % Plt Count 229 (150-375) k/mm3 Lymph # (Auto) 3.03 (0.9-3.2) K/mm3 Bay # (Auto) 0.6 (0.1-0.6) K/mm3 Eos # (Auto) 0.3 (0-0.3) K/mm3 Baso # (Auto) 0.0 (0.0-0.1) K/mm3 Comprehensive Metabolic Panel 01/16/25 Range/Units 01:25 Sodium 138 (137-145) mmol/L Potassium 4.1 (3.4-5.0) mmol/L Chloride 104 (98-107) mmol/L Carbon Dioxide 24 (22-30) mmol/L BUN 16 (9-20) mg/dL Creatinine 0.91 (0.7-1.3) mg/dL Glucose 116 H (65-110) mg/dL Calcium 9.3 (8.4-10.2) mg/dL AST 46 (17-59) U/L ALT 28 (6-50) U/L Alkaline Phosphatase 102 (38-126) U/L Total Protein 7.5 (6.3-8.2) g/dL Albumin 4.5 (3.5-5.1) g/dL Intake and Output 01/16/25 01/16/25 01/16/25 07:59 15:59 23:59 Intake Total 480 Balance 480 Intake: Oral 480 Patient Weight 01/16/25 23:59 Weight 96.5 kg
--- NOTE | 2025-01-16 17:43 | P.CONPL_ITS ---
Assessment and Plan Assessment and plan (1) Pulmonary edema: Qualifiers: Chronicity: acute Qualified Code(s): J81.0 - Acute pulmonary edema Code(s): J81.1 - Chronic pulmonary edema Status: Acute Assessment and Plan: His hemoptysis January 16, 2025 early this morning is due to his pulmonary edema. This is not a specific pulmonary problem. This is due to his cardiac dysfunction. He has a history tobacco, quit in 1989. He does not have a chronic cough. He has never vaped, does not smoke marijuana. He does not have any known underlying lung disease. His pulmonary edema is due to acute systolic CHF. Dr Juares is planning cardiac cath on Saturday. He is managing his decreased EF with Lasix, Coreg, lisnopril, and Jardiance was started. Plan plan: No Zepbound. He is due to have a 5 mg dose tomorrow. He has BMI in the overweight range, just had new onset Overnight oximetry on room air. Has no diagnosis of RITIKA. He has light snoring, some kicking at night. Sleep has been interrupted for several months due to elderly dog waking at night to go outside. The dog is getting an increase in medication to help improve dog sleep at night. [place] with alcohol. No whiskey while his heart tries to remodel. This will help avoid potential fatal arrhythmias. Thyroid panel; new onset systolic CHF. No recent TSH in the system. Add thiamine with alcohol use, new systolic CHF, peripheral neuropathy. I will sign off. His initial low saturation on room air and hemoptysis is attributable to his cardiac condition. Please call if needed. History of Present Illness History of Present Illness Consult date: 01/16/25 Requesting physician: Joy Lu MD Chief complaint: hemotysis Narrative: pt was seen January 16, 2025 at 18:15 Room 210; His Violeta is present. NEW: Austin Saldaña is 59 year old man admitted today with shortness of breath and hemoptysis. His echo shows that he has low EF 30-35%. Dr Juares sees him for hypertension in the office. Today, he ordered a Life Vest and starting Jardiance. He feels better compared to admission. 2023 he started Zepbound to lose weight when his HbA1c was 6.9. Over the last year he lost 60 lb. He checked his blood pressure often, stared to adjust his meds a little, but went back to his normal meds. He is now around 210-214 lb, his goal is 190 lb. He tells me that he was on a vacation with his family in [place], [place]. He was drinking a bit of whiskey which he likes and enjoying salty foods. January 13, he rode a roller coaster. Shortly after starting, he realized this was a mistake. He felt really panicked, was not overwhelmed, but wanted to get it over. The roller coaster was wobbly, scary, but he made it through the ride, did not have any apparent problems. He last was on a roller coaster about 1 or 2 years ago. Saturday morning, very early around 4:00 a.m., he woke up coughing, wheezing, short of breath, had frothy sputum, was short of breath. He was able to go back to sleep for few hours. The rest of the day was unremarkable. This morning, he awoke suddenly with coughing, shortness of breath however instead of frothy sputum he had blood-tinged sputum. He was extremely short of breath. He returned by car from [place], came to the ER. He had 3 flat troponins. Sleep: Mild snoring, wakes feeling refreshed if he can get 6-8 hours however is elderly dog has been having episodes of waking for several months which is contributed to the patient not getting enough sleep and this is made him feel really tired and anxious during the day. He has dreams at night. He has nocturia 2 or 3 times per week. He kicks at night according to his but does not have restless legs symptoms. Caffeine: 20 oz of coffee in the morning. He does not take naps. Alcohol: he likes whiskey, during vacation had 3-4 per night for a couple of nights in a row. Tobacco: 1 and 1/2 pack per day, quit 1989. Smoked for several years. He says he quit 1989, would have been 25 years old when he quit. PMH: prediabetes, HTN, Hepatic steatosis, Hepatitis C virus infection resolved after antiviral drug therapy, polyp of colon, right carpal tunnel syndrome Family hx: Mother in her 70s, congestive heart failure, enlarged heart His sister Afua is 9 years older than he is heart murmur Father age 60, blood cancer and heart problem. 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 His routes may be as far as 6 hours to [place], shorter routes are 3 hours. He does not have drowsy driving. No occupational exposure to asbestos, vapors, fumes. No enlistment. April 2024; he had lumbar spinal surgery to clean out the discs. This improved his back pain but he continues to have neuropathy in his feet which she has had for several years. December 30, 2024 he had a thoracic ablation with pain management, Dr Eng. DATA * 01/16/2025; CTA ; IMPRESSION: No pulmonary embolus. No thoracic aortic dissection. Pulmonary edema without consolidation. * 01/16/2025; EKG: Normal sinus rhythm, left bundle branch block, left axis deviation * 01/16/2025; echo The left ventricle is normal in size with moderately reduced systolic function. The left ventricular ejection fraction is visually estimated to be 30-35%. There is global hypokinesis. 2. The right ventricle is normal in size and systolic function. 3. There is no significant valvular abnormalities. * 01/16/25; white blood cell count 8.8, hemoglobin 17.1, hematocrit 49.9%, platelet 229 K. Eosinophils 300, in the normal range. Sodium 138, potassium 4.1, chloride 104, carbon dioxide 24, BUN 16, creatinine 0.91. BNP 415. Troponin 0.014, 0.02, 0.016; Review of Systems 2 Review of Systems: He has numbness in his feet which she has had for several years. He does not know the specific reason for his neuropathy. He does not have leg swelling. He does not have recurrent pulmonary infections. All systems reviewed & are unremarkable except as noted in HPI and below PMFSH Past Medical History Medical History Hepatic steatosis Right carpal tunnel syndrome Essential hypertension Hepatitis C virus infection resolved after antiviral drug therapy Polyp of colon Family History Family History (Updated 01/16/25 @ 09:41 by Radha Cordon RN) Mother Family history of cardiovascular disease Father Family history of malignant neoplasm Grandparent Brain cancer Memory change Cerebrovascular accident Heart disease Sibling Heart disease Family history of cardiovascular disease Social History Social History Smoking packs per day: 1.5 Smoking cigarettes per day: 30.0 Years smoked: 18 Smoking pack-years: 27.00 Smoking status: Former smoker Tobacco type: cigarettes Second hand tobacco smoke exposure: No Smoking end date: 06/24/19 Alcohol intake: current Drinks per week: 6 Alcohol use details: occasionally, beer/bourbon Substance use: never Substance use type: does not use Do You Feel Safe in your Home?: Yes Lack of Transportation: No Lack of Food: Never True Current Housing: I Have Housing Concerned About Future Housing: No Difficulty Paying Gas/Electric Bills: No Difficulty Paying for Meds: No Currently Unemployed: No Education: High School Diploma/GED Difficulty w/ Childcare or Family Care: No Living arrangements: with family Spiritual care concerns: No Meds Home Medications and Allergies Home Medications ?Medication ?Instructions ?Recorded ?Confirmed ?Type allopurinol 100 mg tablet 100 mg PO .prn PRN Cough 02/11/24 01/16/25 History tirzepatide (weight loss) 12.5 12.5 mg (0.5 mL) subcut WEEKLY #2 04/29/24 01/16/25 Rx mg/0.5 mL subcutaneous pen mL injector (Zepbound) losartan 25 mg tablet See Rx Instructions .Route 11/27/24 01/16/25 Rx .COMPLEX #90 tabs testosterone cypionate 200 mg/mL 150 mg (0.75 mL) IM .COMPLEX #10 mL 12/15/24 01/16/25 Rx intramuscular oil multivitamin (Daily Multi-Vitamin 1 tablet PO DAILY 01/16/25 01/16/25 History tablet) omega 0-kes-ltl-fish oil 1,000 mg 1 cap PO DAILY 01/16/25 01/16/25 History (120 mg-180 mg) capsule (Fish Oil) perfect amino 1 sc PO DAILY 01/16/25 01/16/25 History turmeric 400 mg capsule 400 mg PO DAILY liver function 01/16/25 01/16/25 History vitamin E 268 mg (400 unit) capsule 268 mg PO DAILY 01/16/25 01/16/25 History Allergies Allergy/AdvReac Type Severity Reaction Status Date / Time No Known Allergies Allergy Verified 01/16/25 09:23 Vital Signs Vital Signs - 24 hr 01/16/25 01:10 01/16/25 01:15 01/16/25 01:26 Temperature 37.0 C Pulse Rate 100 99 Respiratory Rate 18 21 H Blood Pressure 161/103 H 162/101 H Pulse Oximetry 90 90 96 Oxygen Delivery Room Air Room Air 01/16/25 01:27 01/16/25 01:46 01/16/25 02:00 Temperature Pulse Rate 80 75 77 Respiratory Rate 16 18 Blood Pressure 131/81 148/80 H Pulse Oximetry 97 93 Oxygen Delivery 01/16/25 02:16 01/16/25 02:30 01/16/25 03:46 Temperature Pulse Rate 77 79 78 Respiratory Rate 17 13 20 Blood Pressure 140/81 141/91 H 160/92 H Pulse Oximetry 93 92 94 Oxygen Delivery 01/16/25 04:30 01/16/25 05:45 01/16/25 06:38 Temperature Pulse Rate 87 74 80 Respiratory Rate 20 15 17 Blood Pressure 156/89 H Pulse Oximetry 91 95 95 Oxygen Delivery 01/16/25 06:46 01/16/25 07:30 01/16/25 08:16 Temperature 36.6 C 36.5 C Pulse Rate 78 78 72 Respiratory Rate 12 15 14 Blood Pressure 165/91 H 154/80 H 139/86 Pulse Oximetry 98 96 100 Oxygen Delivery 01/16/25 09:05 01/16/25 09:05 01/16/25 10:00 Temperature 36.8 C Pulse Rate 68 73 Respiratory Rate 18 Blood Pressure 147/77 H Pulse Oximetry 95 95 Oxygen Delivery Room Air 01/16/25 12:00 01/16/25 12:00 01/16/25 12:00 Temperature 36.9 C Pulse Rate 69 67 Respiratory Rate 16 Blood Pressure 142/74 H Pulse Oximetry 95 96 Oxygen Delivery Room Air 01/16/25 14:00 01/16/25 16:00 01/16/25 16:00 Temperature Pulse Rate 67 69 Respiratory Rate Blood Pressure Pulse Oximetry 96 Oxygen Delivery Room Air 01/16/25 16:00 Temperature 36.6 C Pulse Rate 64 Respiratory Rate 18 Blood Pressure 147/97 H Pulse Oximetry 98 Oxygen Delivery Exam 2 Narrative: GEN: Alert, oriented, not in distress. Room air saturation is 98%. HEENT: pupils are equal, EOMI, symmetrical face; oral membranes moist, Mallampati III airway NECK: Trachea is midline, no lymphadenopathy. CHEST: Equal air entry, symmetric excursion, clear breath sounds; no wheezes, no crackles, no accessory muscle use. CV: Regular S1S2 no m/g/r ABD : (+) bowel sounds Extremities : no clubbing, cyanosis, or edema PSYCH: normal thought and speech, gait is not tested. Results Laboratory Findings 01/16/25 01:25 01/16/25 01:25 ABG, PT/INR, D-dimer: PT/INR, D-dimer PT 12.4 Seconds (11.1-14.7) 01/16/25 01:24 INR 0.9 01/16/25 01:24 Abnormal lab findings: Abnormal Labs 01/16/25 01:25 Glucose 116 H NT-Pro-B Natriuret Pep 415 H
[2025-01-17] VITALS (18 sets, daily range): BP systolic 123–145; BP diastolic 66–87; PULSE 54–76; RESP 14–20; TEMP 36.6–36.8; O2SAT 95–100
[2025-01-17 06:25] LABS: Hematocrit 48.6 % (42.0-52.0); Hemoglobin 16.1 g/dL (14.0-18.0); Immature Granulocyte Percent A 0.3 % (0-0.5); Lymphocytes Absolute Auto 1.80 K/mm3 (0.9-3.2); Mean Corpuscular HGB Conc 33.1 g/dl (32-36); Mean Corpuscular Hemoglobin 33.2 pg (26-34); Mean Corpuscular Volume 100.2 fl (80-100); Nucleated Red Blood Cells Absolute Auto 0.000 K/mm3 (0.0-0.012); Nucleated Red Blood Cells Perc 0.0 % (0.0-0.2); Platelet Count Result 206 k/mm3 (150-375); Red Blood Count 4.85 M/mm3 (4.6-6.20); White Blood Count 6.4 K/mm3 (4.5-10.0)
[2025-01-17 06:44] LABS: Alanine Aminotransferase 24 U/L (6-50); Albumin Level 4.2 g/dL (3.5-5.1); Alkaline Phosphatase 62 U/L (38-126); Anion Gap 7 mmol/L (4-12); Aspartate Amino Transferase 32 U/L (17-59); Bilirubin,Total 1.2 mg/dL (0.2-1.3); Blood Urea Nitrogen 16 mg/dL (9-20); Calcium 9.0 mg/dL (8.4-10.2); Carbon Dioxide 28 mmol/L (22-30); Chloride 104 mmol/L (98-107); Estimated CRCL calculation 77 ml/min; Estimated Glomerular Filt Rate > 60; Glucose 110 mg/dL (65-110); Magnesium 2.2 mg/dL (1.6-2.3); Potassium 4.3 mmol/L (3.4-5.0); Sodium 139 mmol/L (137-145); Total Protein 7.0 g/dL (6.3-8.2)
[2025-01-17 07:09] LABS: Thyroid Stimulating Hormone Reflex 3.240 uIU/mL (0.465-4.68)
[2025-01-17] MEDS: LOSARTAN POTASSIUM 25 MG TABLET BY MOUTH (08:20)
[2025-01-17] MEDS: EMPAGLIFLOZIN 10 MG TABLET PO (08:20)
[2025-01-17] MEDS: FUROSEMIDE INJ 40 MG/4 ML VIAL 20 MG IV PUSH (08:20)
[2025-01-17] MEDS: OMEGA 3 POLYUNSAT FATTY ACIDS 1 GM CAP PO (08:20)
[2025-01-17] MEDS: THIAMINE HCL 50 MG TABLET PO (08:20)
--- NOTE | 2025-01-17 08:40 | PM.PNCARD ---
Progress Note: A&P Assessment and Plan (1) Systolic dysfunction: Code(s): I51.9 - Heart disease, unspecified Status: Acute Assessment and Plan: Severe. No MN by serial troponin. 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 Advise to avoid alcohol. On Lasix 20 mg IV BID. Appears to be euvolemic. Start medical therapy including Carvedilol 3.125 mg BID, Jardiance 10 mg daily, and already on Losartan. Discuss Life vest to prevent sudden cardiac arrest and he will consider it. Placed order. Discuss LHC on Saturday to r/o CAD with new onset cardiomyopathy and LBBB, and patient is agreeable. Consult HCG for it. Change Lasix 20 mg IV BID to Lasix 20 mg PO daily. (2) Essential hypertension: Code(s): I10 - Essential (primary) hypertension Status: Acute Assessment and Plan: Stable. (3) Left bundle branch block (LBBB) determined by electrocardiography: Code(s): I44.7 - Left bundle-branch block, unspecified Status: Acute Assessment and Plan: New onset. But no MN by serial troponin. Subjective Date/time seen: 01/17/25 08:40 Interval history: Reports occasional chest discomfort at rest. No sob. Exam Const: General: cooperative, healthy appearing and comfortable Orientation/consciousness: oriented to person, oriented to place and oriented to time Resp: Auscultation: clear to auscultation bilaterally, no crackles, no rales, no rhonchi and no wheezes Cardio: Rate: regular rate Rhythm: regular rhythm Heart sounds: no murmurs Peripheral pulses: dorsalis pedis present Neuro: General: oriented to person, oriented to place and oriented to time Extrem: Right lower extremity: no edema Left lower extremity: no edema Objective Data Vital Signs Vital Signs: Vital Signs - 24 hr 01/16/25 09:05 01/16/25 09:05 01/16/25 10:00 Temperature 98.3 F Pulse Rate 68 73 Respiratory Rate 18 Blood Pressure 147/77 H Pulse Oximetry 95 95 Oxygen Delivery Room Air Oxygen Flow Rate 01/16/25 12:00 01/16/25 12:00 01/16/25 12:00 Temperature 98.4 F Pulse Rate 69 67 Respiratory Rate 16 Blood Pressure 142/74 H Pulse Oximetry 95 96 Oxygen Delivery Room Air Oxygen Flow Rate 01/16/25 14:00 01/16/25 16:00 01/16/25 16:00 Temperature Pulse Rate 67 69 Respiratory Rate Blood Pressure Pulse Oximetry 96 Oxygen Delivery Room Air Oxygen Flow Rate 01/16/25 16:00 01/16/25 18:00 01/16/25 20:00 Temperature 98 F 98.0 F Pulse Rate 64 69 67 Respiratory Rate 18 16 Blood Pressure 147/97 H 140/75 Pulse Oximetry 98 99 Oxygen Delivery Oxygen Flow Rate 01/16/25 20:00 01/16/25 20:00 01/16/25 20:43 Temperature Pulse Rate 64 66 Respiratory Rate Blood Pressure Pulse Oximetry 99 Oxygen Delivery Room Air Oxygen Flow Rate 01/16/25 22:00 01/16/25 22:50 01/16/25 23:40 Temperature 98.2 F Pulse Rate 65 61 Respiratory Rate 16 Blood Pressure 141/72 H Pulse Oximetry 99 99 Oxygen Delivery Room Air Oxygen Flow Rate 01/17/25 00:00 01/17/25 00:00 01/17/25 02:00 Temperature Pulse Rate 54 L 55 L Respiratory Rate Blood Pressure Pulse Oximetry 99 Oxygen Delivery Nasal Cannula Oxygen Flow Rate 2 01/17/25 04:00 01/17/25 04:00 01/17/25 04:00 Temperature 97.9 F Pulse Rate 56 L 60 Respiratory Rate 14 Blood Pressure 129/80 Pulse Oximetry 99 99 Oxygen Delivery Nasal Cannula Oxygen Flow Rate 2 01/17/25 06:00 01/17/25 08:00 01/17/25 08:20 Temperature 97.9 F Pulse Rate 61 62 66 Respiratory Rate 20 Blood Pressure 131/77 Pulse Oximetry 97 Oxygen Delivery Oxygen Flow Rate Intake/Output Intake/Output: Intake & Output 01/14/25 01/15/25 01/16/25 01/17/25 23:59 23:59 23:59 23:59 Intake Total 1320 275 Balance 1320 275 Meds/Results Medications: Active Medications Generic Name Dose Route Start Last Admin Trade Name Freq PRN Reason Stop Dose Admin Acetaminophen 650 mg 01/16/25 08:02 Acetaminophen 325 Mg Tablet PO Q4H PRN Mild Pain (1-3) or Fever Carvedilol 3.125 mg 01/16/25 21:00 01/17/25 08:20 Carvedilol 3.125 Mg Tablet PO 3.125 mg Q12HR BONY Administration Empagliflozin 10 mg 01/17/25 09:00 01/17/25 08:20 Empagliflozin 10 Mg Tablet PO 10 mg DAILY BONY Administration Fish Oil 1 gm 01/17/25 09:00 01/17/25 08:20 [place] 3 Polyunsat Fatty Acids 1 Gm Cap PO 1 gm DAILY BONY Administration Furosemide 20 mg 01/17/25 09:00 Furosemide 20 Mg Tablet PO DAILY BONY Losartan Potassium 25 mg 01/16/25 15:00 01/17/25 08:20 Losartan Potassium 25 Mg Tablet BY MOUTH 25 mg DAILY BONY Administration Ondansetron HCl 4 mg 01/16/25 08:02 Ondansetron Inj 4 Mg/2 Ml Vial IV PUSH Q4H PRN Nausea Thiamine HCl 50 mg 01/17/25 09:00 01/17/25 08:20 Thiamine Hcl 50 Mg Tablet PO 50 mg QAM BONY Administration Radiology Results: ITS Impressions Chest CTA 01/16/25 06:45 IMPRESSION: No pulmonary embolus. No thoracic aortic dissection. Pulmonary edema without consolidation. Chest X-Ray 01/16/25 08:48 IMPRESSION: Mild pulmonary vascular congestion, without focal infiltrate or effusion. Labs Labs: Laboratory Results - last 24 hr 01/17/25 05:40 WBC 6.4 RBC 4.85 Hgb 16.1 Hct 48.6 MCV 100.2 H MCH 33.2 MCHC 33.1 RDW 12.9 Plt Count 206 MPV 9.9 Immature Gran % (Auto) 0.3 Neut % (Auto) 56.6 Lymph % (Auto) 28.0 [place] % (Auto) 10.0 H Eos % (Auto) 4.5 H Baso % (Auto) 0.6 Lymph # (Auto) 1.80 [place] # (Auto) 0.6 Eos # (Auto) 0.3 Baso # (Auto) 0.0 Abs Immat Gran (auto) 0.02 Absolute Neuts (auto) 3.6 Absolute Nucleated RBC 0.000 Nucleated RBC % 0.0 Sodium 139 Potassium 4.3 Chloride 104 Carbon Dioxide 28 Anion Gap 7 BUN 16 Creatinine 0.96 Estim Creat Clear Calc 77 Estimated GFR > 60 Glucose 110 Calcium 9.0 Magnesium 2.2 Total Bilirubin 1.2 AST 32 ALT 24 Alkaline Phosphatase 62 Total Protein 7.0 Albumin 4.2 TSH (Reflex) 3.240
--- NOTE | 2025-01-17 15:15 | P.PNIM_ITS ---
Progress Note: A&P Assessment and Plan (1) Chest pain: Code(s): R07.9 - Chest pain, unspecified Status: Acute Plan Chest pain and cardiomyopathy ECHo showed EF 30-35% CT chest showed pulm edema On Coreg, Jardiance 10mg daily, Losartan, lasix 20mg daily For cardiac cath tomorrow cardiology following Hemoptysis, resolved likely from CHF no lesion on CT chest Pulmonology consulted HTN continue home meds Prediabetes Continue Zepbound DVT prophylaxis on Sq lovenox Full code SDM: Violeta Saldaña Subjective Date/time seen: 01/17/25 15:15 Interval history: Comfortable at bedside and for cardiac cath Review of Systems Review of Systems: All other systems were reviewed and negative except as noted n the HPI above Exam Narrative: General: alert and comfortable Eyes: EOMI, PERRLA ENNT External ears normal, Neck is supple, no masses, Respiratory systems: Clear to auscultation Cardiovascular S1, S2, normal rhythm, no murmur, rub, or gallop; no thrill or palpable murmurs on palpation. Gastrointestinal: soft, non-tender, and non-distended abdomen with no masses; BS present Skin: no rash, lesions, ulcerations, subcutaneous nodules or induration Musculoskeletal: no abnormality and no tenderness, normal ROM Neurologic: Alert and oriented x3, non focal Mental Status Exam: normal affect Objective Data Vital Signs Vital Signs: Vital Signs - 24 hr 01/16/25 16:00 01/16/25 16:00 01/16/25 16:00 Temperature 98 F Pulse Rate 69 64 Respiratory Rate 18 Blood Pressure 147/97 H Pulse Oximetry 96 98 Oxygen Delivery Room Air Oxygen Flow Rate 01/16/25 18:00 01/16/25 20:00 01/16/25 20:00 Temperature 98.0 F Pulse Rate 69 67 Respiratory Rate 16 Blood Pressure 140/75 Pulse Oximetry 99 99 Oxygen Delivery Room Air Oxygen Flow Rate 01/16/25 20:00 01/16/25 20:43 01/16/25 22:00 Temperature Pulse Rate 64 66 65 Respiratory Rate Blood Pressure Pulse Oximetry Oxygen Delivery Oxygen Flow Rate 01/16/25 22:50 01/16/25 23:40 01/17/25 00:00 Temperature 98.2 F Pulse Rate 61 54 L Respiratory Rate 16 Blood Pressure 141/72 H Pulse Oximetry 99 99 Oxygen Delivery Room Air Oxygen Flow Rate 01/17/25 00:00 01/17/25 02:00 01/17/25 04:00 Temperature 97.9 F Pulse Rate 55 L 56 L Respiratory Rate 14 Blood Pressure 129/80 Pulse Oximetry 99 99 Oxygen Delivery Nasal Cannula Oxygen Flow Rate 2 01/17/25 04:00 01/17/25 04:00 01/17/25 06:00 Temperature Pulse Rate 60 61 Respiratory Rate Blood Pressure Pulse Oximetry 99 Oxygen Delivery Nasal Cannula Oxygen Flow Rate 2 01/17/25 08:00 01/17/25 08:00 01/17/25 08:00 Temperature 97.9 F Pulse Rate 62 76 Respiratory Rate 20 Blood Pressure 131/77 Pulse Oximetry 97 97 Oxygen Delivery Room Air Oxygen Flow Rate 01/17/25 08:20 01/17/25 10:00 01/17/25 11:43 Temperature 98.3 F Pulse Rate 66 72 61 Respiratory Rate 20 Blood Pressure 138/82 Pulse Oximetry 100 Oxygen Delivery Oxygen Flow Rate 01/17/25 12:00 01/17/25 12:00 01/17/25 14:00 Temperature Pulse Rate 61 68 Respiratory Rate Blood Pressure Pulse Oximetry 100 Oxygen Delivery Room Air Oxygen Flow Rate Intake/Output Intake/Output: Intake & Output 01/14/25 01/15/25 01/16/25 01/17/25 23:59 23:59 23:59 23:59 Intake Total 1320 755 Balance 1320 755 Meds/Results Medications: Active Medications Generic Name Dose Route Start Last Admin Trade Name Alfredq PRN Reason Stop Dose Admin Acetaminophen 650 mg 01/16/25 08:02 Acetaminophen 325 Mg Tablet PO Q4H PRN Mild Pain (1-3) or Fever Carvedilol 3.125 mg 01/16/25 21:00 01/17/25 08:20 Carvedilol 3.125 Mg Tablet PO 3.125 mg Q12HR BONY Administration Empagliflozin 10 mg 01/17/25 09:00 01/17/25 08:20 Empagliflozin 10 Mg Tablet PO 10 mg DAILY BONY Administration Fish Oil 1 gm 01/17/25 09:00 01/17/25 08:20 [place] 3 Polyunsat Fatty Acids 1 Gm Cap PO 1 gm DAILY BONY Administration Furosemide 20 mg 01/17/25 09:00 01/17/25 11:32 Furosemide 20 Mg Tablet PO Not Given DAILY BONY Losartan Potassium 25 mg 01/16/25 15:00 01/17/25 08:20 Losartan Potassium 25 Mg Tablet BY MOUTH 25 mg DAILY BONY Administration Ondansetron HCl 4 mg 01/16/25 08:02 Ondansetron Inj 4 Mg/2 Ml Vial IV PUSH Q4H PRN Nausea Thiamine HCl 50 mg 01/17/25 09:00 01/17/25 08:20 Thiamine Hcl 50 Mg Tablet PO 50 mg QAM BONY Administration Radiology Results: ITS Impressions Chest CTA 01/16/25 06:45 IMPRESSION: No pulmonary embolus. No thoracic aortic dissection. Pulmonary edema without consolidation. Chest X-Ray 01/16/25 08:48 IMPRESSION: Mild pulmonary vascular congestion, without focal infiltrate or effusion. Labs Labs: Laboratory Results - last 24 hr 01/17/25 05:40 WBC 6.4 RBC 4.85 Hgb 16.1 Hct 48.6 MCV 100.2 H MCH 33.2 MCHC 33.1 RDW 12.9 Plt Count 206 MPV 9.9 Immature Gran % (Auto) 0.3 Neut % (Auto) 56.6 Lymph % (Auto) 28.0 [place] % (Auto) 10.0 H Eos % (Auto) 4.5 H Baso % (Auto) 0.6 Lymph # (Auto) 1.80 [place] # (Auto) 0.6 Eos # (Auto) 0.3 Baso # (Auto) 0.0 Abs Immat Gran (auto) 0.02 Absolute Neuts (auto) 3.6 Absolute Nucleated RBC 0.000 Nucleated RBC % 0.0 Sodium 139 Potassium 4.3 Chloride 104 Carbon Dioxide 28 Anion Gap 7 BUN 16 Creatinine 0.96 Estim Creat Clear Calc 77 Estimated GFR > 60 Glucose 110 Calcium 9.0 Magnesium 2.2 Total Bilirubin 1.2 AST 32 ALT 24 Alkaline Phosphatase 62 Total Protein 7.0 Albumin 4.2 TSH (Reflex) 3.240
[2025-01-18] VITALS (21 sets, daily range): BP systolic 105–134; BP diastolic 55–82; PULSE 56–75; RESP 10–18; TEMP 36.6–36.8; O2SAT 95–100
--- NOTE | 2025-01-18 07:42 | P.PNCA_ITS ---
Progress Note: A&P Assessment and Plan (1) Systolic dysfunction: Code(s): I51.9 - Heart disease, unspecified Status: Acute Assessment and Plan: Severe. No MT by serial troponin. 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 Advise to avoid alcohol. On Lasix 20 mg PO BID. Appears to be euvolemic. Start medical therapy including Carvedilol 3.125 mg BID, Jardiance 10 mg daily, and already on Losartan. Discuss Life vest to prevent sudden cardiac arrest and he will consider it. Placed order. Discuss LHC today to r/o CAD with new onset cardiomyopathy and LBBB, and patient is agreeable. Consult HCG for it. If he gets fitted for Life vest today and has non-obstructive CAD on LHC then he may d/c home and f/u with me in 1 week. (2) Essential hypertension: Code(s): I10 - Essential (primary) hypertension Status: Acute Assessment and Plan: Stable. (3) Left bundle branch block (LBBB) determined by electrocardiography: Code(s): I44.7 - Left bundle-branch block, unspecified Status: Acute Assessment and Plan: New onset. But no MT by serial troponin. Subjective Date/time seen: 01/18/25 07:42 Interval history: Reports occasional chest discomfort at rest. No sob. Exam Const: General: cooperative, healthy appearing and comfortable Orienta tion/consciousness: oriented to person, oriented to place and oriented to time Resp: Auscultation: clear to auscultation bilaterally, no crackles, no rales, no rhonchi and no wheezes Cardio: Rate: regular rate Rhythm: regular rhythm Heart sounds: no murmurs Peripheral pulses: dorsalis pedis present Neuro: General: oriented to person, oriented to place and oriented to time Extrem: Right lower extremity: no edema Left lower extremity: no edema Objective Data Vital Signs Vital Signs: Vital Signs - 24 hr 01/17/25 08:00 01/17/25 08:00 01/17/25 08:00 Temperature 97.9 F Pulse Rate 62 76 Respiratory Rate 20 Blood Pressure 131/77 Pulse Oximetry 97 97 Oxygen Delivery Room Air Fraction of Inspired Oxygen 01/17/25 08:20 01/17/25 10:00 01/17/25 11:43 Temperature 98.3 F Pulse Rate 66 72 61 Respiratory Rate 20 Blood Pressure 138/82 Pulse Oximetry 100 Oxygen Delivery Fraction of Inspired Oxygen 01/17/25 12:00 01/17/25 12:00 01/17/25 14:00 Temperature Pulse Rate 61 68 Respiratory Rate Blood Pressure Pulse Oximetry 100 Oxygen Delivery Room Air Fraction of Inspired Oxygen 01/17/25 16:00 01/17/25 16:00 01/17/25 16:00 Temperature 98.3 F Pulse Rate 63 66 Respiratory Rate 20 Blood Pressure 129/74 Pulse Oximetry 96 96 Oxygen Delivery Room Air Fraction of Inspired Oxygen 01/17/25 18:00 01/17/25 19:42 01/17/25 20:00 Temperature 98.2 F Pulse Rate 69 68 Respiratory Rate 14 Blood Pressure 145/87 H Pulse Oximetry 98 95 Oxygen Delivery Room Air Fraction of Inspired Oxygen 01/17/25 20:19 01/17/25 21:54 01/17/25 22:00 Temperature Pulse Rate 70 75 68 Respiratory Rate Blood Pressure Pulse Oximetry 95 Oxygen Delivery Room Air Fraction of Inspired Oxygen 21 01/17/25 23:58 01/18/25 00:00 01/18/25 00:00 Temperature 98.0 F Pulse Rate 66 57 L Respiratory Rate 16 Blood Pressure 123/66 Pulse Oximetry 99 97 Oxygen Delivery Room Air Fraction of Inspired Oxygen 01/18/25 02:00 01/18/25 04:00 01/18/25 04:00 Temperature 98.3 F Pulse Rate 56 L 59 L Respiratory Rate 14 Blood Pressure 130/81 Pulse Oximetry 96 100 Oxygen Delivery Room Air Fraction of Inspired Oxygen 01/18/25 04:00 01/18/25 06:00 Temperature Pulse Rate 57 L 59 L Respiratory Rate Blood Pressure Pulse Oximetry Oxygen Delivery Fraction of Inspired Oxygen Intake/Output Intake/Output: Intake & Output 01/15/25 01/16/25 01/17/25 01/18/25 23:59 23:59 23:59 23:59 Intake Total 1320 875 120 Balance 1320 875 120 Meds/Results Medications: Active Medications Generic Name Dose Route Start Last Admin Trade Name Freq PRN Reason Stop Dose Admin Acetaminophen 650 mg 01/16/25 08:02 Acetaminophen 325 Mg Tablet PO Q4H PRN Mild Pain (1-3) or Fever Carvedilol 3.125 mg 01/16/25 21:00 01/17/25 21:54 Carvedilol 3.125 Mg Tablet PO 3.125 mg Q12HR BONY Administration Empagliflozin 10 mg 01/17/25 09:00 01/17/25 08:20 Empagliflozin 10 Mg Tablet PO 10 mg DAILY BONY Administration Fish Oil 1 gm 01/17/25 09:00 01/17/25 08:20 [place] 3 Polyunsat Fatty Acids 1 Gm Cap PO 1 gm DAILY BONY Administration Furosemide 20 mg 01/17/25 09:00 01/17/25 11:32 Furosemide 20 Mg Tablet PO Not Given DAILY BONY Losartan Potassium 25 mg 01/16/25 15:00 01/17/25 08:20 Losartan Potassium 25 Mg Tablet BY MOUTH 25 mg DAILY BONY Administration Ondansetron HCl 4 mg 01/16/25 08:02 Ondansetron Inj 4 Mg/2 Ml Vial IV PUSH Q4H PRN Nausea Thiamine HCl 50 mg 01/17/25 09:00 01/17/25 08:20 Thiamine Hcl 50 Mg Tablet PO 50 mg QAM BONY Administration Radiology Results: ITS Impressions Chest CTA 01/16/25 06:45 IMPRESSION: No pulmonary embolus. No thoracic aortic dissection. Pulmonary edema without consolidation. Chest X-Ray 01/16/25 08:48 IMPRESSION: Mild pulmonary vascular congestion, without focal infiltrate or effusion.
[2025-01-18] MEDS: FUROSEMIDE 20 MG TABLET PO (08:08)
[2025-01-18] MEDS: OMEGA 3 POLYUNSAT FATTY ACIDS 1 GM CAP PO (08:08)
[2025-01-18] MEDS: EMPAGLIFLOZIN 10 MG TABLET PO (08:08)
[2025-01-18] MEDS: THIAMINE HCL 50 MG TABLET PO (08:08)
[2025-01-18] MEDS: LOSARTAN POTASSIUM 25 MG TABLET BY MOUTH (08:09)
--- NOTE | 2025-01-18 11:20 | P.SEDATION_ITS ---
Moderate Sedation Note-Pt Data Patient Data Diagnosis: New cardiomyopathy Present Complaint: Chest pain Arm tingling Shortness of breath Hemoptysis- resolved Procedure to be performed/Plan: Left heart catheterization Coronary angiogram Possible percutaneous coronary intervention Allergies Allergy/AdvReac Type Severity Reaction Status Date / Time No Known Allergies Allergy Verified 01/16/25 09:23 Home Medications ?Medication ?Instructions ?Recorded ?Confirmed ?Type allopurinol 100 mg tablet 100 mg PO .prn PRN Cough 02/11/24 01/16/25 History tirzepatide (weight loss) 12.5 12.5 mg (0.5 mL) subcut WEEKLY #2 04/29/24 01/16/25 Rx mg/0.5 mL subcutaneous pen mL injector (Zepbound) losartan 25 mg tablet See Rx Instructions .Route 11/27/24 01/16/25 Rx .COMPLEX #90 tabs testosterone cypionate 200 mg/mL 150 mg (0.75 mL) IM .COMPLEX #10 mL 12/15/24 01/16/25 Rx intramuscular oil multivitamin (Daily Multi-Vitamin 1 tablet PO DAILY 01/16/25 01/16/25 History tablet) omega [id number]-fish oil 1,000 mg 1 cap PO DAILY 01/16/25 01/16/25 History (120 mg-180 mg) capsule (Fish Oil) perfect amino 1 sc PO DAILY 01/16/25 01/16/25 History turmeric 400 mg capsule 400 mg PO DAILY liver function 01/16/25 01/16/25 History vitamin E 268 mg (400 unit) capsule 268 mg PO DAILY 01/16/25 01/16/25 History Current Medications: Active Medications Acetaminophen (Acetaminophen 325 Mg Tablet) 650 mg PO Q4H PRN PRN Reason: Mild Pain (1-3) or Fever Carvedilol (Carvedilol 3.125 Mg Tablet) 3.125 mg PO Q12HR BONY Last Admin: 01/18/25 08:08 Dose: 3.125 mg Empagliflozin (Empagliflozin 10 Mg Tablet) 10 mg PO DAILY BONY Last Admin: 01/18/25 08:08 Dose: 10 mg Fish Oil ([place] 3 Polyunsat Fatty Acids 1 Gm Cap) 1 gm PO DAILY BONY Last Admin: 01/18/25 08:08 Dose: 1 gm Furosemide (Furosemide 20 Mg Tablet) 20 mg PO DAILY BONY Last Admin: 01/18/25 08:08 Dose: 20 mg Losartan Potassium (Losartan Potassium 25 Mg Tablet) 25 mg BY MOUTH DAILY [facility] Last Admin: 01/18/25 08:09 Dose: 25 mg Ondansetron HCl (Ondansetron Inj 4 Mg/2 Ml Vial) 4 mg IV PUSH Q4H PRN PRN Reason: Nausea Thiamine HCl (Thiamine Hcl 50 Mg Tablet) 50 mg PO QAM [facility] Last Admin: 01/18/25 08:08 Dose: 50 mg Sedation/Anesthesia: No previous sedation/anesthesia problems (including family history). [facility] Past Medical History Medical History Hepatic steatosis Right carpal tunnel syndrome Essential hypertension Hepatitis C virus infection resolved after antiviral drug therapy Polyp of colon Family History Family History (Updated 01/16/25 @ 09:41 by Radha Cordon RN) Mother Family history of cardiovascular disease Father Family history of malignant neoplasm Grandparent Brain cancer Memory change Cerebrovascular accident Heart disease Sibling Heart disease Family history of cardiovascular disease Social History Social History Smoking packs per day: 1.5 Smoking cigarettes per day: 30.0 Years smoked: 18 Smoking pack-years: 27.00 Smoking status: Former smoker Tobacco type: cigarettes Second hand tobacco smoke exposure: No Smoking end date: 06/24/19 Alcohol intake: current Drinks per week: 6 Alcohol use details: occasionally, beer/bourbon Substance use: never Substance use type: does not use Do You Feel Safe in your Home?: Yes Lack of Transportation: No Lack of Food: Never True Current Housing: I Have Housing Concerned About Future Housing: No Difficulty Paying Gas/Electric Bills: No Difficulty Paying for Meds: No Currently Unemployed: No Education: High School Diploma/GED Difficulty w/ Childcare or Family Care: No Living arrangements: with family Spiritual care concerns: No Mod Sed Physical Exam Physical Exam Pre Procedural Exam: Normal: Lungs, Heart Rate and Heart Rhythm Hours since solid foods: 12 Hours since liquid intake: 12 Mallampati Classification: class II Internal Medicine - PN: Obj Da Vital Signs Vital Signs: Vital Signs - 24 hr 01/17/25 11:43 01/17/25 12:00 01/17/25 12:00 Temperature 36.8 C Pulse Rate 61 61 Respiratory Rate 20 Blood Pressure 138/82 Pulse Oximetry 100 100 Oxygen Delivery Room Air Fraction of Inspired Oxygen 01/17/25 14:00 01/17/25 16:00 01/17/25 16:00 Temperature 36.8 C Pulse Rate 68 63 66 Respiratory Rate 20 Blood Pressure 129/74 Pulse Oximetry 96 Oxygen Delivery Fraction of Inspired Oxygen 01/17/25 16:00 01/17/25 18:00 01/17/25 19:42 Temperature 36.8 C Pulse Rate 69 68 Respiratory Rate 14 Blood Pressure 145/87 H Pulse Oximetry 96 98 Oxygen Delivery Room Air Fraction of Inspired Oxygen 01/17/25 20:00 01/17/25 20:19 01/17/25 21:54 Temperature Pulse Rate 70 75 Respiratory Rate Blood Pressure Pulse Oximetry 95 95 Oxygen Delivery Room Air Room Air Fraction of Inspired Oxygen 21 01/17/25 22:00 01/17/25 23:58 01/18/25 00:00 Temperature 36.7 C Pulse Rate 68 66 Respiratory Rate 16 Blood Pressure 123/66 Pulse Oximetry 99 97 Oxygen Delivery Room Air Fraction of Inspired Oxygen 01/18/25 00:00 01/18/25 02:00 01/18/25 04:00 Temperature Pulse Rate 57 L 56 L Respiratory Rate Blood Pressure Pulse Oximetry 96 Oxygen Delivery Room Air Fraction of Inspired Oxygen 01/18/25 04:00 01/18/25 04:00 01/18/25 06:00 Temperature 36.8 C Pulse Rate 59 L 57 L 59 L Respiratory Rate 14 Blood Pressure 130/81 Pulse Oximetry 100 Oxygen Delivery Fraction of Inspired Oxygen 01/18/25 07:57 01/18/25 08:08 01/18/25 11:13 Temperature 36.8 C Pulse Rate 70 63 Respiratory Rate 18 Blood Pressure 123/80 Pulse Oximetry 99 95 Oxygen Delivery Room Air Fraction of Inspired Oxygen Intake/Output Intake/Output: Intake & Output 01/15/25 01/16/25 01/17/25 01/18/25 23:59 23:59 23:59 23:59 Intake Total 1320 875 120 Balance 1320 875 120 Meds/Results Medications: Active Medications Generic Name Dose Route Start Last Admin Trade Name Freq PRN Reason Stop Dose Admin Acetaminophen 650 mg 01/16/25 08:02 Acetaminophen 325 Mg Tablet PO Q4H PRN Mild Pain (1-3) or Fever Carvedilol 3.125 mg 01/16/25 21:00 01/18/25 08:08 Carvedilol 3.125 Mg Tablet PO 3.125 mg Q12HR BONY Administration Empagliflozin 10 mg 01/17/25 09:00 01/18/25 08:08 Empagliflozin 10 Mg Tablet PO 10 mg DAILY BONY Administration Fish Oil 1 gm 01/17/25 09:00 01/18/25 08:08 [place] 3 Polyunsat Fatty Acids 1 Gm Cap PO 1 gm DAILY BONY Administration Furosemide 20 mg 01/17/25 09:00 01/18/25 08:08 Furosemide 20 Mg Tablet PO 20 mg DAILY BONY Administration Losartan Potassium 25 mg 01/16/25 15:00 01/18/25 08:09 Losartan Potassium 25 Mg Tablet BY MOUTH 25 mg DAILY BONY Administration Ondansetron HCl 4 mg 01/16/25 08:02 Ondansetron Inj 4 Mg/2 Ml Vial IV PUSH Q4H PRN Nausea Thiamine HCl 50 mg 01/17/25 09:00 01/18/25 08:08 Thiamine Hcl 50 Mg Tablet PO 50 mg QAM BONY Administration Radiology Results: ITS Impressions Chest CTA 01/16/25 06:45 IMPRESSION: No pulmonary embolus. No thoracic aortic dissection. Pulmonary edema without consolidation. Chest X-Ray 01/16/25 08:48 IMPRESSION: Mild pulmonary vascular congestion, without focal infiltrate or effusion. Labs 01/17/25 05:40 01/17/25 05:40 ASA Classification/Sedation ASA Classification/Sedation ASA Class: III Emergent: No Risks: Risks, benefits and alternatives explained and patient/family accepted plan for sedation. Patient re-evaluated immediately prior to sedation.
--- NOTE | 2025-01-18 11:20 | WPDHPUPDATE1 ---
History and Physical Update Update Date/Time: 01/18/25 11:20 History and Physical has been reviewed, including an updated exam of the patient. There are NO changes in the patient's condition. Risks, benefits, and alternatives have been discussed and questions answered. Patient agrees to proceed with procedure.
--- NOTE | 2025-01-18 11:22 | P.PCNCC_ITS ---
Cardiac Cath Procedure Note Date of procedure:: 01/18/25 Performing physician:: Chantel Rodriguez MD Indication:: New cardiomyopathy Procedure Procedure performed:: CATHETERIZATION LABORATORY REPORT Procedure Date: 01/18/2025 Referring Physician: Dr. Horowitz Anesthesia: Versed and Fentanyl were ordered and given in my presence at 12:02 p.m., procedure ended at 12:40 p.m.. Supervision of nurse monitored moderate sedation with Versed and Fentanyl was provided for 38 minutes. Fentanyl: 150 mcg Versed: 1 mg Pre-op Diagnosis: New cardiomyopathy with LVEF 30% Post-op Diagnosis: Cardiomyopathy Normal coronaries Procedure(s): Left heart catheterization with coronary angiography Access Site: Right common femoral artery Brief History and Clinical Indications: All risks, benefits and alternatives to left heart catheterization with or without percutaneous coronary intervention was discussed at length with the patient. Risk of complications including but not limited to bleeding, infection, arrhythmia, stroke, worsening kidney function, blood loss, groin hematoma, limb loss, emergency coronary artery bypass grafting, and even were discussed with the patient and all questions were answered. The patient understood and wished to proceed. Time out called, patient name, date of , medical record number, allergies, procedure performed, identify Stage Hand, patient and staff member concurred with accurate data, procedure carried on. Findings: LEFT HEART CATHETERIZATION FINDINGS: 1. Left main: The left main coronary artery is widely patent without any significant obstructive disease. 2. Left anterior descending: The LAD and the diagonal branches have mild luminal irregularities without any significant obstructive angiographic disease. 3. Left circumflex: The left circumflex artery and the main marginal branches have mild luminal irregularities without any significant obstructive angiographic disease. 4. Right coronary artery: The RCA has mild luminal irregularities without any significant obstructive angiographic disease. The RCA is the dominant vessel. 5. Left ventricle: A. End-diastolic pressure 10 mmHg. B. LV gram deferred. C. No significant gradient across aortic valve on catheter pullback. 6. Opening AO pressure 78/43/58 and closing AO pressure 76/51/60 3 mm Hg. Description of Procedure: Informed consent signed and placed in the chart. Patient transferred to equipment operator/laborer/supervisor room. Prepped and draped in usual sterile fashion. 2% lidocaine in right groin area. Micropuncture needle used to access right common femoral artery with Seldinger technique under fluoroscopic guidance. J wire advanced, micropuncture cannula placed. Right iliofemoral angiogram performed, access confirmed and micropuncture cannula exchanged for 6-FR sheath. ? Five Stateless JL 3.5 diagnostic catheter engaged Left Main Coronary Artery. 5 Stateless JR4 diagnostic catheter engaged Right Coronary Artery. Multiple orthogonal angiogram obtained and reviewed. 5 Stateless JR4 diagnostic catheter crossed aortic valve to obtain LVEDP, LV angiogram deferred. Hemostasis was achieved by 6 Stateless Angio-Seal. Assessment: Cardiomyopathy with LVEF 30% Normal coronaries Post Operative Condition: Stable No significant blood loss Disposition: Floor Plan: The patient will be monitored in the recovery area. Guideline directed medical therapy for cardiomyopathy. Continue aggressive medical therapy and risk factor modification. Further recommendations and management per primary cardiology team.
[2025-01-18] MEDS: SODIUM CHLORIDE 0.9% IV 1,000 ML 125 ML IV CONT (13:38)
--- NOTE | 2025-01-18 13:44 | PM.IMPN ---
Progress Note: A&P Assessment and Plan (1) Chest pain: Code(s): R07.9 - Chest pain, unspecified Status: Acute Plan Chest pain and cardiomyopathy ECHo showed EF 30-35% CT chest showed pulm edema On Coreg, Jardiance 10mg daily, Losartan, lasix 20mg daily For cardiac cath today cardiology following Hemoptysis, resolved likely from CHF no lesion on CT chest Pulmonology consulted HTN continue home meds Prediabetes Continue Zepbound DVT prophylaxis on Sq lovenox Full code SDM: Violeta Saldaña Subjective Date/time seen: 01/18/25 13:44 Interval history: Comfortable at bedside Review of Systems Review of Systems: All other systems were reviewed and negative except as noted n the HPI above Exam Narrative: General: alert and comfortable Eyes: EOMI, PERRLA ENNT External ears normal, Neck is supple, no masses, Respiratory systems: Clear to auscultation Cardiovascular S1, S2, normal rhythm, no murmur, rub, or gallop; no thrill or palpable murmurs on palpation. Gastrointestinal: soft, non-tender, and non-distended abdomen with no masses; BS present Skin: no rash, lesions, ulcerations, subcutaneous nodules or induration Musculoskeletal: no abnormality and no tenderness, normal ROM Neurologic: Alert and oriented x3, non focal Mental Status Exam: normal affect Objective Data Vital Signs Vital Signs: Vital Signs - 24 hr 01/17/25 14:00 01/17/25 16:00 01/17/25 16:00 Temperature 98.3 F Pulse Rate 68 63 66 Pulse Rate [Right Pedal (Dorsalis Pedis)] Respiratory Rate 20 Blood Pressure 129/74 Pulse Oximetry 96 Oxygen Delivery Fraction of Inspired Oxygen 01/17/25 16:00 01/17/25 18:00 01/17/25 19:42 Temperature 98.2 F Pulse Rate 69 68 Pulse Rate [Right Pedal (Dorsalis Pedis)] Respiratory Rate 14 Blood Pressure 145/87 H Pulse Oximetry 96 98 Oxygen Delivery Room Air Fraction of Inspired Oxygen 01/17/25 20:00 01/17/25 20:19 01/17/25 21:54 Temperature Pulse Rate 70 75 Pulse Rate [Right Pedal (Dorsalis Pedis)] Respiratory Rate Blood Pressure Pulse Oximetry 95 95 Oxygen Delivery Room Air Room Air Fraction of Inspired Oxygen 01/17/25 22:00 01/17/25 23:58 01/18/25 00:00 Temperature 98.0 F Pulse Rate 68 66 Pulse Rate [Right Pedal (Dorsalis Pedis)] Respiratory Rate 16 Blood Pressure 123/66 Pulse Oximetry 99 97 Oxygen Delivery Room Air Fraction of Inspired Oxygen 01/18/25 00:00 01/18/25 02:00 01/18/25 04:00 Temperature Pulse Rate 57 L 56 L Pulse Rate [Right Pedal (Dorsalis Pedis)] Respiratory Rate Blood Pressure Pulse Oximetry 96 Oxygen Delivery Room Air Fraction of Inspired Oxygen 01/18/25 04:00 01/18/25 04:00 01/18/25 06:00 Temperature 98.3 F Pulse Rate 59 L 57 L 59 L Pulse Rate [Right Pedal (Dorsalis Pedis)] Respiratory Rate 14 Blood Pressure 130/81 Pulse Oximetry 100 Oxygen Delivery Fraction of Inspired Oxygen 01/18/25 07:57 01/18/25 08:00 01/18/25 08:08 Temperature 98.3 F Pulse Rate 70 73 63 Pulse Rate [Right Pedal (Dorsalis Pedis)] Respiratory Rate 18 Blood Pressure 123/80 Pulse Oximetry 99 Oxygen Delivery Fraction of Inspired Oxygen 01/18/25 10:00 01/18/25 11:13 01/18/25 13:10 Temperature Pulse Rate 68 Pulse Rate [Right Pedal (Dorsalis Pedis)] 56 L Respiratory Rate Blood Pressure Pulse Oximetry 95 Oxygen Delivery Room Air Fraction of Inspired Oxygen 01/18/25 13:10 01/18/25 13:15 01/18/25 13:15 Temperature Pulse Rate 60 62 Pulse Rate [Right Pedal (Dorsalis Pedis)] 62 Respiratory Rate 10 L 12 Blood Pressure 113/82 108/71 Pulse Oximetry 99 98 Oxygen Delivery Room Air Room Air Fraction of Inspired Oxygen 01/18/25 13:30 01/18/25 13:30 Temperature Pulse Rate 57 L Pulse Rate [Right Pedal (Dorsalis Pedis)] 57 L Respiratory Rate 12 Blood Pressure 109/70 Pulse Oximetry 98 Oxygen Delivery Room Air Fraction of Inspired Oxygen Intake/Output Intake/Output: Intake & Output 01/15/25 01/16/25 01/17/25 01/18/25 23:59 23:59 23:59 23:59 Intake Total 1320 875 140 Balance 1320 875 140 Meds/Results Medications: Active Medications Generic Name Dose Route Start Last Admin Trade Name Freq PRN Reason Stop Dose Admin Acetaminophen 650 mg 01/16/25 08:02 Acetaminophen 325 Mg Tablet PO Q4H PRN Mild Pain (1-3) or Fever Carvedilol 3.125 mg 01/16/25 21:00 01/18/25 08:08 Carvedilol 3.125 Mg Tablet PO 3.125 mg Q12HR BONY Administration Empagliflozin 10 mg 01/17/25 09:00 01/18/25 08:08 Empagliflozin 10 Mg Tablet PO 10 mg DAILY BONY Administration Fish Oil 1 gm 01/17/25 09:00 01/18/25 08:08 [place] 3 Polyunsat Fatty Acids 1 Gm Cap PO 1 gm DAILY BONY Administration Furosemide 20 mg 01/17/25 09:00 01/18/25 08:08 Furosemide 20 Mg Tablet PO 20 mg DAILY BONY Administration Sodium Chloride 1,000 mls @ 125 mls/hr 01/18/25 13:24 01/18/25 13:38 Normal Saline Iv IV CONT 01/18/25 21:23 125 mls/hr .Q8H ONE Administration Losartan Potassium 25 mg 01/16/25 15:00 01/18/25 08:09 Losartan Potassium 25 Mg Tablet BY MOUTH 25 mg DAILY BONY Administration Ondansetron HCl 4 mg 01/16/25 08:02 Ondansetron Inj 4 Mg/2 Ml Vial IV PUSH Q4H PRN Nausea Thiamine HCl 50 mg 01/17/25 09:00 01/18/25 08:08 Thiamine Hcl 50 Mg Tablet PO 50 mg QAM BONY Administration Radiology Results: ITS Impressions Chest CTA 01/16/25 06:45 IMPRESSION: No pulmonary embolus. No thoracic aortic dissection. Pulmonary edema without consolidation. Chest X-Ray 01/16/25 08:48 IMPRESSION: Mild pulmonary vascular congestion, without focal infiltrate or effusion.
--- NOTE | 2025-01-18 18:53 | PM.DS ---
DS: Summary Time Spent with Patient Time attestation: Total time spent providing and/or coordinating discharge services: Discharge Plan Discharge Attending physician on discharge: Joy Lu Consulting providers: Asuncion Alvarado; Ahsan Juares; Alonso Chung Discharging Clinician: Joy Lu Anticipated Discharge Date/Time: 01/18/25 18:51 Patient Disposition: Home Activity: as tolerated Diet: heart healthy Discharge Instructions: [facility] [address] [place] [address] DISCHARGE INSTRUCTIONS - POST CARDIAC CATH Activity Restriction 1. No Driving for 24 hours 2. No lifting, pushing or pulling more than 10 LBS for 1 week 3. No strenuous activity or exercising for 1 week 4. Shower after 24 hours, do not soak in any water such as hot tubs or bath tubs Wound Care 1. Remove dressing 24 hours after your procedure prior to showering 2. Lather soap and water to puncture site and rinse then pat dry 3. You may apply a new band aid to the site and remove aft er 24 hours then leave open to air 4. Monitor daily for redness, drainage, mild swelling and fever Report IMMEDIATELY: CALL 911 1. If you experience any swelling or bleeding from puncture site. Hold firm pressure over the puncture site until help arrives 2. If you experience any new discomfort in you back, neck, jaw, stomach or arm. Any shortness of breath, nausea, vomiting, or cold sweats 3. If you experience any swelling, tenderness, or numbness in your leg or if your leg becomes cold or has color changes. Follow Up 1. Follow your doctors discharge instructions on resuming your medications. Some medications will need to be held after your procedure 2. Follow up with the office to schedule your next appointment with your doctor 3. Drink plenty of water following your procedure, avoid alcohol If you received a stent or a closure device keep your card with you such as in your wallet. Present your card to your doctor appointments to update your health care information. *For any other questions please call the office at [phone]. Office hours are 8AM 4:30PM Saturday through Saturday. Patient Instructions: Antibiotic Form, Furosemide (By mouth), Losartan (By mouth), Carvedilol (By mouth), Empagliflozin (By mouth), Heart Failure (DC), Transthoracic Echocardiogram (DC) Patient Language: Portuguese Stand Alone Forms: General Discharge Information Follow-up/Referrals: Asuncion Alvarado MD [Physician] - Ahsan Juares DO [Physician] - (F/u with Cardiology as instructed ) Lucas Hinojosa MD [Primary Care Provider] - (F/u with PCP in 3-5 days) Discharge Medications: New thiamine HCl (vitamin B1) 50 mg Tablet 50 mg PO QAM 30 Days Qty: 30 0RF furosemide 20 mg Tablet 20 mg PO DAILY 30 Days Qty: 30 0RF carvedilol [Coreg] 3.125 mg Tablet 3.125 mg PO Q12HR 30 Days Qty: 60 1RF Jardiance 10 mg Tablet 10 mg PO DAILY 30 Days Qty: 30 1RF Continued allopurinol 100 mg tablet 100 mg PO .prn PRN (Reason: Cough) omega 3-bpr-nxq-fish oil [Fish Oil] 1,000 (120-180) mg capsule 1 cap PO DAILY multivitamin [Daily Multi-Vitamin] Tablet 1 tablet PO DAILY vitamin E 268 mg (400 unit) capsule 268 mg PO DAILY turmeric 400 mg capsule 400 mg PO DAILY perfect amino 1 sc PO DAILY Patient Comments: one scoop daily Zepbound 12.5 mg/0.5 mL pen injector 12.5 mg subcut WEEKLY Qty: 2 3RF losartan 25 mg tablet See Rx Instructions .ROUTE .COMPLEX Qty: 90 0RF Dose Instruction: TAKE 1 TABLET BY MOUTH DAILY Rx Instructions: TAKE 1 TABLET BY MOUTH DAILY testosterone cypionate 200 mg/mL oil 150 mg IM .COMPLEX Qty: 10 0RF Rx Instructions: 150 mg intramuscularly every two weeks; Date of admission: 01/17/25 14:02 Primary Care Provider: Lucas Hinojosa Admitting Provider: Gilbert Garcia Attending physician on admission: Gilbert Garcia Condition: Stable
--- NOTE | 2025-01-26 07:22 | PM.DS ---
DS: Admitting Diagnosis Discharge Date 01/18/25 Admitting Diagnosis SOB and Hemoptysis DS: Discharge Diagnosis Discharge Diagnosis (1) Cardiomyopathy: Code(s): I42.9 - Cardiomyopathy, unspecified Status: Acute DS: Summary Hospital Course Hospital Course: 59 yo male with PMH of prediabetes and HTN, who presented to the ER on account chest pain and SOb with hemoptysis. Patient noted that he woke this morning at about 12am with SOb, wheezing and coughing up blood. Noted the symptoms started a day prior but with frothy oink sputum and today he coughed up bright red blood which caused him to presented to the ER for proper eval and care. Noted mild chest pain described as tightness alogn with wheezing. otherwise no radiation, no vomiting, no diarrhea, no abd pain and no focal symptoms. ER eval notable for BP 162/101, Tropnin negative x2, NTproBNP 415, CTA Chest showed pulmonary edema. EKG showed Sinus rhythm and LBBB new Cardiology was consulted, ECHO showed ER 30-35% and patient underwent cardiac cath which showed no signicant coronary artery disease. Pateint was started on Coreg, Jardiance , Losartan and Lasix 20mg dily per cardiology. Also discharged on lefevest. Hemoptysis resolved, related to cardiomyopathy. Patient will follow up with [facility] in 3-5 days, F/u with Cardiology as instructed Time Spent with Patient Time attestation: Total time spent providing and/or coordinating discharge services: Discharge Plan Discharge Attending physician on discharge: Joy Lu Consulting providers: Asuncion Alvarado; Ahsan Juares; Alonso Chung; Chantel Rodriguez; Kiki Workman Discharging Clinician: Joy Lu Anticipated Discharge Date/Time: 01/18/25 18:51 Patient Disposition: Home Activity: as tolerated Diet: heart healthy Discharge Instructions: [facility] [address] [place] [address] DISCHARGE INSTRUCTIONS - POST CARDIAC CATH Activity Restriction 1. No Driving for 24 hours 2. No lifting, pushing or pulling more than 10 LBS for 1 week 3. No strenuous activity or exercising for 1 week 4. Shower after 24 hours, do not soak in any water such as hot tubs or bath tubs Wound Care 1. Remove dressing 24 hours after your procedure prior to showering 2. Lather soap and water to puncture site and rinse then pat dry 3. You may apply a new band aid to the site and remove aft er 24 hours then leave open to air 4. Monitor daily for redness, drainage, mild swelling and fever Report IMMEDIATELY: CALL 911 1. If you experience any swelling or bleeding from puncture site. Hold firm pressure over the puncture site until help arrives 2. If you experience any new discomfort in you back, neck, jaw, stomach or arm. Any shortness of breath, nausea, vomiting, or cold sweats 3. If you experience any swelling, tenderness, or numbness in your leg or if your leg becomes cold or has color changes. Follow Up 1. Follow your doctors discharge instructions on resuming your medications. Some medications will need to be held after your procedure 2. Follow up with the office to schedule your next appointment with your doctor 3. Drink plenty of water following your procedure, avoid alcohol If you received a stent or a closure device keep your card with you such as in your wallet. Present your card to your doctor appointments to update your health care information. *For any other questions please call the office at [phone]. Office hours are 8AM 4:30PM Saturday through Saturday. Patient Instructions: Antibiotic Form, Furosemide (By mouth), Losartan (By mouth), Carvedilol (By mouth), Empagliflozin (By mouth), Heart Failure (DC), Heart Catheterization (DC), Transthoracic Echocardiogram (DC) Patient Language: Occitan Stand Alone Forms: General Discharge Information Follow-up/Referrals: Asuncion Alvarado MD [Physician] - Ahsan Juares DO [Physician] - (F/u with Cardiology as instructed ) Lucas Hinojosa MD [Primary Care Provider] - (F/u with PCP in 3-5 days) Discharge Medications: New carvedilol [Coreg] 3.125 mg Tablet 3.125 mg PO Q12HR 30 Days Qty: 60 1RF furosemide 20 mg Tablet 20 mg PO DAILY 30 Days Qty: 30 0RF thiamine HCl (vitamin B1) 50 mg Tablet 50 mg PO QAM 30 Days Qty: 30 0RF Jardiance 10 mg Tablet 10 mg PO DAILY 30 Days Qty: 30 1RF Continued allopurinol 100 mg tablet 100 mg PO .prn PRN (Reason: Cough) omega 3-gyh-qac-fish oil [Fish Oil] 1,000 (120-180) mg capsule 1 cap PO DAILY multivitamin [Daily Multi-Vitamin] Tablet 1 tablet PO DAILY vitamin E 268 mg (400 unit) capsule 268 mg PO DAILY turmeric 400 mg capsule 400 mg PO DAILY perfect amino 1 sc PO DAILY Patient Comments: one scoop daily losartan 25 mg tablet See Rx Instructions .ROUTE .COMPLEX Qty: 90 0RF Dose Instruction: TAKE 1 TABLET BY MOUTH DAILY Rx Instructions: TAKE 1 TABLET BY MOUTH DAILY testosterone cypionate 200 mg/mL oil 150 mg IM .COMPLEX Qty: 10 0RF Rx Instructions: 150 mg intramuscularly every two weeks; Date of admission: 01/17/25 14:02 Primary Care Provider: Lucas Hinojosa Admitting Provider: Gilbert Garcia Attending physician on admission: Joy Lu Condition: Stable
== END 2025-01-18 19:30 | disposition home or self-care (01) | DRG 287 ==
LOC: ANHED 03:31 → ANHIMU 08:37
PROVIDERS: Internal Medicine Critical Care Medicine; Internal Medicine Interventional Cardiology; Physician Assistant; Admitting Provider Internal Medicine; Emergency Provider Student in an Organized Health Care Education/Training Program; PCP Family Medicine; Visit Provider Internal Medicine
PROC: 4A023N7 Measurement of Cardiac Sampling and Pressure, Left Heart, Percutaneous Approach (ICD-10-PCS; CPT 93452; principal; 2025-01-18 11:30)
PROC: 4A023N7 Measurement of Cardiac Sampling and Pressure, Left Heart, Percutaneous Approach (ICD-10-PCS; 2025-01-18 11:30)
DX: I11.0 Hypertensive heart disease with heart failure (principal); J81.1 Chronic pulmonary edema; R04.2 Hemoptysis; I50.20 Unspecified systolic (congestive) heart failure; I44.7 Left bundle-branch block, unspecified; I43 Cardiomyopathy in diseases classified elsewhere; E78.5 Hyperlipidemia, unspecified; G62.9 Polyneuropathy, unspecified; G89.29 Other chronic pain; K76.0 Fatty (change of) liver, not elsewhere classified; M54.9 Dorsalgia, unspecified; Z87.891 Personal history of nicotine dependence; Z20.822 Contact with and (suspected) exposure to COVID-19
CPT/HCPCS: 36415; 71046; 71275; 80053; 83735; 83880; 84443; 84484; 85025; 85610; 85730; 87637; 93005; 93306; 93458; 94762; 96374; 96375; 99285; A9270; C1760; C1769; C1887; C1894; C8929; G0269; G0378; J1644; J1938; J2003; J2250; J2305; J3010; J7030; J7040; Q9957; Q9967

== ENCOUNTER 2025-01-27 08:10 | Outpatient (CLI) | payer OTHER, SELFPAY ==
--- OUTSIDE RECORDS SUMMARY | 2025-01-27 08:15 | XMS_ITS | Encounter Summary ---
Author Organization [facility] Address [address] [place] [address] Care Team Providers Care Manufacturing Engineer Supervisor Name Role Phone Unavailable Primary Care Provider Unavailabl e Encounter Details Date Type Department Care Team (Late st Contact Info) Description 01/18/2005 Outpatient Historical [facility] Internal Medicine - [place] [address] [place] [address] Evaristo Rg MD [address] [place] [address] Social History Tobacco Use Types Packs/Day Years Used Date Smoking Tobacco: Never Assessed Sex and Gender Information Value Date Recorded Sex Assigned at Not on file 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
--- OUTSIDE RECORDS SUMMARY | 2025-01-27 08:15 | XMS_ITS | Clinical Summary ---
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
--- OUTSIDE RECORDS SUMMARY | 2025-01-27 08:15 | XMS_ITS | Clinical Summary ---
Author Organization [facility] Address [address] [place] [address] Care Team Providers Care Traffic Investigator Name Role Phone Unavailable Primary Care Provider Unavailabl e Source Comments [facility],non-owned Affiliates and Associated Physician Practices is amultiple site organization consisting of ambulatory clinics and hospital sitesin [place], [place], [place] and [place]. This disclosure is being madepursuant to the Care Everywhere program and may not contain all information available regarding this patient. 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 Gender Identity Not on file Sexual Orientation [...] patient's age to complete this topic Insurance [facility] SELF PAY NO INSURANCE Member Subscriber Plan / Payer (Ef fective for All Dates) Name:Austin Ashton Member ID:Not on file Relation to Subscriber:Not on file Name:AUSTIN ASHTON Subscriber ID:Not on file Address: [address] [place] [address] Payer ID:Not on file Group ID:Not on file Type:Self Pay Address: [place], [place] [employer] SELF PAY NO INSURANCE Member Subscriber Plan / Payer (Ef fective for All Dates) Name:Austin Ashton Saran Member ID:Not on file Relation to Subscriber:Not on file Name:AUSTIN ASHTON Subscriber ID:Not on file Address: [address] [place] [address] Payer ID:Not on file Group ID:Not on file Type:Self Pay Address: [place], [place] CARE SELF PAY NO INSURANCE Member Subscriber Plan / Payer (Ef fective for All Dates) Name:Austin Ashton Saran Member ID:Not on file Relation to Subscriber:Not on file Name:TONIE ASHTONETT Subscriber ID:Not on file Address: [address] [place] [address] Payer ID:Not on file Group ID:Not on file Type:Self Pay Address: [place], [place]
--- OUTSIDE RECORDS SUMMARY | 2025-01-27 08:15 | XMS_ITS | Encounter Summary ---
Author Organization [facility] Address [address] [place] [address] Care Team Providers Care Aircraft Tool Maker Name Role Phone Unavailable Primary Care Provider Unavailabl e Encounter Details Date Type Department Care Team (Late st Contact Info) Description 01/18/2005 Outpatient Historical [facility] Internal Medicine - [place] [address] [place] [address] Evaristo Rg MD 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
--- OUTSIDE RECORDS SUMMARY | 2025-01-27 08:15 | XMS_ITS | Encounter Summary ---
Author Organization [facility] Address [address] [place] [address] Care Team Providers Care Modular Set Crew Member Name Role Phone Unavailable Primary Care Provider Unavailabl e Encounter Details Date Type Department Care Team (Late st Contact Info) Description 01/18/2005 Outpatient Historical [facility] Internal Medicine - [place] [address] [place] [address] Evaristo Rg MD [address] [place] [address] Social History Tobacco Use Types Packs/Day Years Used Date Smoking Tobacco: Never Assessed Sex and Gender Information Value Date Recorded Sex Assigned at Not on file 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
--- OUTSIDE RECORDS SUMMARY | 2025-01-27 08:15 | XMS_ITS | Clinical Summary ---
Author Organization [facility] Address [address] 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
--- OUTSIDE RECORDS SUMMARY | 2025-01-27 08:16 | XMS_ITS | Patient Health Record ---
Author Organization [employer] Address [address] [place] [address] Support Name Relationship Address Phone Austin Saldaña Guarantor Unknown [phone] Reason For Referral No Information Plan Of Treatment No Information Insurance Providers Payer Name Payer Address Payer Phone Subscriber Number Group Number Insured Name Patient Relationship to Insured Coverage Start Date Coverage End Date [facility] Choice/ choice Plus E2 [address] [place] [address] [id number] Austin Saldaña Self - patient is the insured
[2025-01-27 09:39] LABS: Prostate Specific Antigen 1.1 ng/mL (< OR = 4.0)
[2025-01-27 10:23] LABS: Hemoglobin A1C 5.3 % (<5.7)
[2025-02-02 11:09] LABS: Free Testosterone (Direct) 1.0 pg/mL (6.6-18.1)
== END 2025-01-27 08:11 | disposition home or self-care (01) ==
LOC: ANHLAB 08:11
PROVIDERS: PCP Family Medicine; Visit Provider Family Medicine
DX: E66.9 Obesity, unspecified (principal); I10 Essential (primary) hypertension; I51.9 Heart disease, unspecified; E29.1 Testicular hypofunction; R79.89 Other specified abnormal findings of blood chemistry; Z12.5 Encounter for screening for malignant neoplasm of prostate
CPT/HCPCS: 36415; 83036; 84153; 84402; 84403; G0103

== ENCOUNTER 2025-06-22 10:21 | Outpatient (CLI) | payer OTHER, SELFPAY ==
--- OUTSIDE RECORDS SUMMARY | 2025-06-22 10:54 | XMS_ITS | Encounter Summary ---
Author Organization [facility] Address [address] [place] [address] Phone Care Team Providers Care Educational Administrator Name Role Phone Lucas Hinojosa MD Primary Care Provider [phone] Encounter Details Date Type Department Care Team (Latest Contact Info) Description 01/17/2025 Orders Only [facility] Scanning, Provider Social History Tobacco Use Types Packs/Day Years Used Date Smoking Tobacco: Never Assessed Sex and Gender Information Value Date Recorded Sex Assigned at Not on file Legal Sex Male 9:09 AM BUSINESS PROPOSAL REP Gender Identity Not on file Sexual Orientation Not on file documented as of this encounter Plan of Treatment Not on file documented as of this encounter Procedures Procedure Name Priority Date/Time Associated Diagnosis Comments CARDIOLOGY DOCUMENT SCAN 01/17/2025 documented in this encounter Results * Cardiology Document Scan (01/17/2025) Anatomical Region Laterality Modality Other us Provider Scanning CV CARDIAC SERVICES PROCEDURES Edited Result - Final documented in this encounter Visit Diagnoses Not on filedocumented in this encounter Care Teams Educational Administrator Relationship Specialty Start Date End Date Lucas Hinojosa MD PCP - General Family Practice 03/12/23 documented as of this encounter
--- OUTSIDE RECORDS SUMMARY | 2025-06-22 10:54 | XMS_ITS | Encounter Summary ---
Author Organization [facility] [place] [facility] Address [address] [place] [address] Phone Care Team Providers Care Plate And Frame Filter Operator Name Role Phone Lucas Hinojosa MD Primary Care Provider [phone] Encounter Details Date Type Department Care Team (Latest Contact Info) Description 01/27/2025 Orders Only [facility] Scanning, Provider Social History Tobacco Use Types Packs/Day Years Used Date Smoking Tobacco: Never Assessed Sex and Gender Information Value Date Recorded Sex Assigned at Not on file 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 Sex Male 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 Gender Identity Not on file Sexual Orientation Not on file documented as of this encounter Plan of Treatment Not on file documented as of this encounter Procedures Procedure Name Priority Date/Time Associated Diagnosis Comments SCAN - LABS 01/27/2025 documented in this encounter Results * SCAN - LABS (01/27/2025) us Provider Scanning Final Result documented in this encounter Visit Diagnoses Not on filedocumented in this encounter Care Teams Plate And Frame Filter Operator Relationship Specialty Start Date End Date Lucas Hinojosa MD PCP - General Family Practice 03/12/23 documented as of this encounter
--- OUTSIDE RECORDS SUMMARY | 2025-06-22 10:54 | XMS_ITS | Encounter Summary ---
Author Organization [facility] Address [address] [place] [address] Care Team Providers Care Camera Person Name Role Phone Unavailable Primary Care Provider Unavailabl e Encounter Details Date Type Department Care Team (Late st Contact Info) Description 01/18/2005 Outpatient Historical [facility] Internal Medicine - [place] [address] [place] [address] Evaristo Rg MD [address] [place] [address] Social History Tobacco Use Types Packs/Day Years Used Date Smoking Tobacco: Never Assessed Sex and Gender Information Value Date Recorded Sex Assigned at Not on file 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
--- OUTSIDE RECORDS SUMMARY | 2025-06-22 10:54 | XMS_ITS | Clinical Summary ---
Author Organization [facility] Address [address] [place] [address] Care Team Providers Care Laborer Tan House Name Role Phone Unavailable Primary Care Provider Unavailabl e Source Comments [facility],non-owned Affiliates and Associated Physician Practices is amultiple site organization consisting of ambulatory clinics and hospital sitesin [place], [place], [place] and [place]. This disclosure is being madepursuant to the Care Everywhere program and may not contain all information available regarding this patient. Last updated 18.[facility] Allergies Active Allergy Reactions Criticality Noted Date [...] sprayIndication s:Acute maxillary sinusitis, recurrence not specified [place] 2 sprays into each nostril once daily 1 bottles 7 Active Family History Medical History Relation Name Comments Cancer - Other Father blood CAD (Coronary Artery Disease) Mother Diabetes - Type 2 Mother Relation Name Status Comments Father Mother Social History Tobacco Use Types Packs/Day Years Used Date Smoking Tobacco: Former Cigarettes 0 Q uit: 1989 Smokeless Tobacco: Never Sex and Gender Information Value Date Recorded Sex Assigned at Not on file 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 Gender Identity Not on file Sexual Orientation [...] of 2) 2014 SCREENING FOR DIABETES 05/20/2017 DEPRESSION SCREENING 06/24/2024 COVID-19 VACCINE (1 - 2024-2 6 season) 2025 INFLUENZA VACCINE (#1) 2025 Respiratory Syncytial Virus [...] patient's age to complete this topic Insurance [facility] SELF PAY NO INSURANCE Member Subscriber Plan / Payer (Ef fective for All Dates) Name:Austin Ashton Member ID:Not on file Relation to Subscriber:Not on file Name:AUSTIN ASHTON Subscriber ID:Not on file Address: [address] [place] [address] Payer ID:Not on file Group ID:Not on file Type:Self Pay Address: [place], [place] [facility] SELF PAY NO INSURANCE Member Subscriber Plan / Payer (Ef fective for All Dates) Name:Austin Ashton Saran Member ID:Not on file Relation to Subscriber:Not on file Name:AUSTIN ASHTON Subscriber ID:Not on file Address: [address] [place], [place] [address] Payer ID:Not on file Group ID:Not on file Type:Self Pay Address: [place], [place] [address] [facility] SELF PAY NO INSURANCE Member Subscriber Plan / Payer (Ef fective for All Dates) Name:Austin Ashton Saran Member ID:Not on file Relation to Subscriber:Not on file Name:TONIE ASHTONETT Subscriber ID:Not on file Address: [address] [place] [address] Payer ID:Not on file Group ID:Not on file Type:Self Pay Address: [place], [place]
--- OUTSIDE RECORDS SUMMARY | 2025-06-22 10:54 | XMS_ITS | Encounter Summary ---
Author Organization [facility] Address [address] [place] [address] Care Team Providers Care Car Driver Name Role Phone Unavailable Primary Care Provider Unavailabl e Encounter Details Date Type Department Care Team (Late st Contact Info) Description 01/18/2005 Outpatient Historical [facility] Internal Medicine - [place] [address] [place] [address] Evaristo Rg MD [address] [place] [address] Social History Tobacco Use Types Packs/Day Years Used Date Smoking Tobacco: Never Assessed Sex and Gender Information Value Date Recorded Sex Assigned at Not on file 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
--- OUTSIDE RECORDS SUMMARY | 2025-06-22 10:54 | XMS_ITS | Encounter Summary ---
Author Organization [facility] Address [address] [place] [address] Care Team Providers Care Account Information Clerk Name Role Phone Unavailable Primary Care Provider Unavailabl e Encounter Details Date Type Department Care Team (Late st Contact Info) Description 01/18/2005 Outpatient Historical [facility] Internal Medicine - [place] [address] [place] [id number] Evaristo Rg MD [address] [place] [address] Social History Tobacco Use Types Packs/Day Years Used Date Smoking Tobacco: Never Assessed Sex and Gender Information Value Date Recorded Sex Assigned at Not on file 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
--- OUTSIDE RECORDS SUMMARY | 2025-06-22 10:54 | XMS_ITS | Patient Health Record ---
Author Organization [employer] Address [address] [place]. [address] [place] [id number] Support Name Relationship Address Phone Austin Saldaña Guarantor Unknown [phone] Reason For Referral No Information Plan Of Treatment No Information Insurance Providers Payer Name Payer Address Payer Phone Subscriber Number Group Number Insured Name Patient Relationship to Insured Coverage Start Date Coverage End Date [facility] Choice/ choice Plus [id number] [address] [place] [phone] [id number] Austin Saldaña Self - patient is the insured
--- OUTSIDE RECORDS SUMMARY | 2025-06-22 10:54 | XMS_ITS | Encounter Summary ---
Author Organization [facility] Address [address] [place] [address] Phone Care Team Providers Care Automotive Parts Manager Name Role Phone Lucas Hinojosa MD Primary Care Provider [phone] Encounter Details Date Type Department Care Team (Latest Contact Info) Description 10/18/2020 Orders Only [facility] Scanning, Provider Social History Tobacco Use Types Packs/Day Years Used Date Smoking Tobacco: Never Assessed Sex and Gender Information Value Date Recorded Sex Assigned at Not on file 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 Sex Male 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 Gender Identity Not on file Sexual Orientation Not on file documented as of this encounter Plan of Treatment Not on file documented as of this encounter Procedures Procedure Name Priority Date/Time Associated Diagnosis Comments CARDIOLOGY DOCUMENT SCAN 10/18/2020 documented in this encounter Results * Cardiology Document Scan (10/18/2020) Anatomical Region Laterality Modality Other us Provider Scanning CV CARDIAC SERVICES PROCEDURES Final Result documented in this encounter Visit Diagnoses Not on filedocumented in this encounter Care Teams Automotive Parts Manager Relationship Specialty Start Date End Date Lucas Hinojosa MD PCP - General Family Practice 03/12/23 documented as of this encounter
--- OUTSIDE RECORDS SUMMARY | 2025-06-22 10:54 | XMS_ITS | Clinical Summary ---
Author Organization [facility] Address [address] [place] [address] Care Team Providers Care Sail Cutter Name Role Phone Lucas Hinojosa MD Primary Care Provider [phone] Allergies Active Allergy Reactions Criticality Noted Date Comments Penicillins Swelling Medium 03/20/2023 Medications testosterone cypionate (DEPO-TESTOTERO NE) 200 mg/mL injection Inject into the muscle as instructed every 14 (fourteen) days Active thiamine (VITAMIN B-1) 50 mg tablet Take 1 tablet (50 mg total) by mouth daily Active allopurinoL (ZYLOPRIM) 100 mg tablet Take 1 tablet (100 mg total) by mouth daily Active omega-3 fatty acids-fish oil 340-1,000 mg capsule Active vitamin E 400 unit capsule Take 1 capsule (400 Units total) by mouth Active multivitamin tabletIndicatio ns:Vitamin Deficiency Prevention Take 1 tablet by mouth Active spironolactone (ALDACTONE) 25 mg tablet Take 1 tablet (25 mg total) by mouth daily 90 tablet 3 5 Active sacubitriL-vals oralia (Entresto) 24-26 mg tabletIndicatio ns:chronic heart failure Take 1 tablet by mouth 2 (two) times a day 180 tablet 3 5 Active empagliflozin (JARDIANCE) 10 mg tablet Take 1 tablet (10 mg total) by mouth daily 30 tablet 3 5 Active metoprolol XL (TOPROL-XL) 50 mg extended release tablet Take 1 tablet (50 mg total) by mouth daily 90 tablet 3 03/25/20 26 Active tirzepatide, weight loss, (Zepbound) 10 mg/0.5 mL pen injector Inject 0.5 mL (10 mg total) under the skin every 7 days Active Active Problems No known active problems Encounters Date Type Department Care Team Description 04/26/2025 2:30 PM [employer] AND [employer] MECH[employer]IC Office Visit [facility] Medicine Cardiology [address] [place] [address] Medical Office Building [address] [place] [address] David Shepard MD Nonischemic cardiomyopathy (HCC) (Primary Dx); LBBB (left bundle branch block); Hyperlipidemia, unspecified hyperlipidemia type 03/31/2025 12:52 PM CDT - 03/31/2025 11:59 PM CDT Hospital Encounter [facility] [address] [place] [address] Dilated cardiomyopathy (HCC) Discharge Disposition: Discharge to home or self care 03/24/2025 10:30 AM CDT Ancillary Procedure [facility] [address] [place] [address] [address] [place] [address] Chest pain, unspecified type; Dilated cardiomyopathy (HCC) from Last 3 Months Medical History Medical History Date Comments Dilated cardiomyopathy (HCC) Hypertension Social History Tobacco Use Types Packs/Day Years Used Date Smoking Tobacco: Former Cigarettes Tobacco Cessation:Counseling Given: Not Answered Sex and Gender Information Value Date Recorded Sex Assigned at Not on file Legal Sex Male 9:09 AM [employer]ICAL AND [employer] MECH[employer]IC Gender Identity Not on file Sexual Orientation Not on file Last Filed Vital Signs Vital Sign Reading Time Taken Comments Blood Pressure 126/80 04/26/2025 2:19 PM [employer]IC Pulse 71 04/26/2025 2:19 PM [employer]IC Temperature - - Respiratory Rate - - Oxygen Saturation 98% 04/26/2025 2:19 PM [employer]IC Inhaled Oxygen Concentration - - Weight 93 kg (205 lb) 04/26/2025 2:19 PM [employer] AND [employer] Height 180.3 cm (5' 11) 04/26/2025 2:19 PM [employer] AND [employer] MECH[employer]IC Body Mass Index 28.59 04/26/2025 2:19 PM [employer]CH[employer]IC Plan of Treatment Health Maintenance Due Date Last Done Comments Colon Cancer Screening-Colonoscopy 1965 Depression Screening 1965 Hepatitis C Screening 1965 Prostate Cancer Screening-PSA 1964 DTaP/Tdap/Td Vaccine (1 - Tdap) 1975 Hepatitis B Screening 1982 Regular Well Visit/Exam 18-64 1982 Pneumococcal vaccine <65 (1 of 2 - PCV) 1983 Zoster Vaccine (1 of 2) 2014 Covid-19 Vaccine (3 - season) 02/22/202505/2021, 11/04/2020 Influenza Vaccine (#1) 2025 04/10/2021, 2019 Procedures Procedure Name Priority Date/Time Associated Diagnosis Comments PRO B-TYPE NATRIURETIC PEPTIDE Routine 04/08/2025 8:34 AM CDT Dilated cardiomyopathy (HCC) Chest pain, unspecified type Medication dose increased BASIC METABOLIC PANEL Routine 04/08/2025 8:34 AM CDT Dilated cardiomyopathy (HCC) Chest pain, unspecified type Medication dose increased MRI CARDIAC M&FUNC W WO CONTRAST Schedule Routine, Read Routine (OP Routine) 03/31/2025 2:22 PM CDT Dilated cardiomyopathy (HCC) TRANSTHORACIC ECHO (TTE) COMPLETE W DOPPLER/CF W CONTRAST Routine 03/24/2025 10:54 AM CDT Chest pain, unspecified type Dilated cardiomyopathy (HCC) from Last 3 Months Results * Pro B-type natriuretic peptide (04/08/2025 8:34 AM CDT) NT PROBNP <36 <125 pg/mL [facility] Blood 04/08/2025 8:34 AM CDT 04/08/2025 8:34 AM CDT Narrative [facility] - 04/09/2025 2:04 AM CDT FASTING:YES FASTING: YES us David Shepard MD LAB BLOOD ORDERABLES Final R esult [facility] [address] [place] [address] * Basic metabolic panel (04/08/2025 8:34 AM CDT) Glucose 94 65 - 99 mg/dL [facility] Comment: Fasting reference interval BUN 18 7 - 25 mg/dL [facility] Creatinine 1.14 0.70 - 1.35 mg/dL [facility] eGFR 74 > OR = 60 mL/min/1.7 3m2 [facility] BUN/creat ratio SEE NOTE: 6 (calc) [facility] Comment: Not Reported: BUN and Creatinine are within reference range. Sodium 137 135 - 146 mmol/L [facility] Potassium, pl 4.9 3.5 - 5.3 mmol/L [facility] Chloride 103 98 - 110 mmol/L [facility] CO2 28 20 - 32 mmol/L [facility] Calcium 9.2 8.6 - 10.3 mg/dL [facility] Blood 04/08/2025 8:34 AM CDT 04/08/2025 8:34 AM CDT Narrative [facility] - 04/09/2025 2:04 AM CDT FASTING:YES FASTING: YES us David Shepard MD LAB BLOOD ORDERABLES Final R esult [facility] [address] [place] [address] * MRI Cardiac M&F W WO Contrast (03/31/2025 2:22 PM CDT) Anatomical Region Laterality Modality Body N/A Magnetic Resonan ce 03/31/2025 3:01 PM CDT Impressions 04/01/2025 7:15 AM CDT 1. Normal diastolic volumes with borderline global hypokinesis (LVEF 48%). No regional wall abnormality. 2. No late gadolinium enhancement or MR evidence of infiltrative cardiomyopathy. 3. No significant valvular disease. Dictated by: Jt Parsons MD The radiology attending physician has personally reviewed this study, and had reviewed and/or edited this written report and agrees with it. Electronically signed by: Hayden Huynh M.D. Narrative 04/01/2025 7:15 AM CDT EXAM: Cardiac MRI Morphology and Function with Contrast, w/ Cardiac MRI Flow Quantification DATE OF EXAMINATION: 03/31/2025 COMPARISON: 01/16/2025, 03/20/2023 TECHNIQUE: Multiplanar MR imaging of the heart utilizing HASTE and TRUEFISP imaging sequences was performed with the administration of 19 mL intravenous gadolinium contrast agent according to a custom monitored protocol. 3-D postprocessing was subsequently performed on a dedicated 3-D workstation. HISTORY: 59-year-old male with prior left bundle-branch block and heart failure with reduced ejection fraction. Anatomy: There is a three-vessel aortic arch, which is left-sided. No abnormal origin of the coronary arteries. The ventricles are mildly dilated without a pericardial effusion. Left Ventricular (LV) Size and Function: Normal left ventricular size. No regional wall motion abnormality. LV functional parameters: LVEF, 48%. LV end diastolic volume, 138 mL, index 65.6 mL/meter2 LV end systolic volume, 71 mL. Stroke volume, 67 mL. Cardiac output, 4.23 L/min. Cardiac index, 2.01 L/min/meter2 ; BSA 2.11 meter2. Right Ventricular Size and Function: Normal right ventricular size. No regional wall motion abnormality. RV functional parameters: RVEF, 36%. RV end diastolic volume, 119 mL, index 56.5 mL/meter2 RV end systolic volume, 77 mL. Stroke volume, 42 mL. Cardiac output, 2.69 L/min. Cardiac index, 1.28 L/min/meter2. Myocardial T1 measurements: non-elevated Myocardial T2 measurements: non-elevated Late gadolinium enhancement: None. Valves: Mitral valve no stenosis or regurgitation. Tricuspid valve no stenosis or regurgitation. Pulmonic valve no stenosis or regurgitation. Aortic valve no stenosis or regurgitation. Flow Quantification: Aorta above valve (HR 63 bpm) Peak velocity 1.62 m/sec Fwd 50 ml Rev 4 ml Net 46 ml Flow/CO 3.3 L/min MPA (HR 63 bpm) Peak velocity 1.3 m/sec Fwd 44 ml Rev 2 ml (likely secondary to turbulence, no visible regurgitation) Net 42 ml Flow/CO 2.98 L/min Procedure Note Hayden Huynh MD - 04/01/2025 EXAM: Cardiac MRI Morphology and Function with Contrast, w/ Cardiac MRI Flow Quantification DATE OF EXAMINATION: 03/31/2025 COMPARISON: 01/16/2025, 03/20/2023 TECHNIQUE: Multiplanar MR imaging of the heart utilizing HASTE and TRUEFISP imaging sequences was performed with the administration of 19 mL intravenous gadolinium contrast agent according to a custom monitored protocol. 3-D postprocessing was subsequently performed on a dedicated 3-D workstation. HISTORY: 59-year-old male with prior left bundle-branch block and heart failure with reduced ejection fraction. Anatomy: There is a three-vessel aortic arch, which is left-sided. No abnormal origin of the coronary arteries. The ventricles are mildly dilated without a pericardial effusion. Left Ventricular (LV) Size and Function: Normal left ventricular size. No regional wall motion abnormality. LV functional parameters: LVEF, 48%. LV end diastolic volume, 138 mL, index 65.6 mL/meter2 LV end systolic volume, 71 mL. Stroke volume, 67 mL. Cardiac output, 4.23 L/min. Cardiac index, 2.01 L/min/meter2 ; BSA 2.11 meter2. Right Ventricular Size and Function: Normal right ventricular size. No regional wall motion abnormality. RV functional parameters: RVEF, 36%. RV end diastolic volume, 119 mL, index 56.5 mL/meter2 RV end systolic volume, 77 mL. Stroke volume, 42 mL. Cardiac output, 2.69 L/min. Cardiac index, 1.28 L/min/meter2. Myocardial T1 measurements: non-elevated Myocardial T2 measurements: non-elevated Late gadolinium enhancement: None. Valves: Mitral valve no stenosis or regurgitation. Tricuspid valve no stenosis or regurgitation. Pulmonic valve no stenosis or regurgitation. Aortic valve no stenosis or regurgitation. Flow Quantification: Aorta above valve (HR 63 bpm) Peak velocity 1.62 m/sec Fwd 50 ml Rev 4 ml Net 46 ml Flow/CO 3.3 L/min MPA (HR 63 bpm) Peak velocity 1.3 m/sec Fwd 44 ml Rev 2 ml (likely secondary to turbulence, no visible regurgitation) Net 42 ml Flow/CO 2.98 L/min IMPRESSION: 1. Normal diastolic volumes with borderline global hypokinesis (LVEF 48%). No regional wall abnormality. 2. No late gadolinium enhancement or MR evidence of infiltrative cardiomyopathy. 3. No significant valvular disease. Dictated by: Jt Parsons MD The radiology attending physician has personally reviewed this study, and had reviewed and/or edited this written report and agrees with it. Electronically signed by: Hayden Huynh M.D. us David Shepard MD IMG MRI PROCEDURES Final Res ult * TRANSTHORACIC ECHO (TTE) COMPLETE W DOPPLER/CF W CONTRAST (03/24/2025 10:54 AM CDT) EF Mod BP 34 % CONS SCIMAGE Anatomical Region Laterality Modality Ultrasound 03/24/2025 10:3 9 AM CDT Narrative 03/25/2025 9:12 AM CDT [facility] [address] , [address] [place] [address] Transthoracic Echocardiographic Report Patient Name: AUSTIN ASHTON A : 1965 (59y 10m) Sex: M Study Date: 03/24/2025 10:39:18 Ht(Inch): 71 Wt(Lb): 212.08 BSA: 2.16 Fire Chief Deputy: Stefania Renee RD, [facility] Location: [facility] Order Provider: DAVID SHEPARD Heart Rate: 60 BMI: 29.58 Ref Provider: DAVID SHEPARD PROCEDURES: Echocardiographic Report: Transthoracic complete echo with contrast, 2D, spectral and tissue Doppler, color flow Doppler, M-mode. Additional Procedures: Myocardial strain imaging was performed. Contrast: Contrast Enhancement was Employed: After initial imaging due to sub- optimal quality related to co-morbidity defined by patient's body habitus, due to suboptimal image quality with inadequate visualization of at least 2 of 16 LV wall segments in any view after initial imaging. Perflutren contrast was administered using the volume necessary to obtain adequate images and. 0.8 ml Optison Administered, (2.2 ml wasted). INDICATIONS: R07.9 Chest pain, unspecified and I42.0 Dilated cardiomyopathy. CONCLUSIONS: 1. Normal left ventricular size based on volume index. Normal LV wall thickness. Moderately depressed left ventricular systolic function. The Ejection Fraction (Wiley's) is measured at 34 %. Grade I diastolic dysfunction (normal LA pressure). The average global longitudinal strain is abnormal. 2. There is moderate global hypokinesis. 3. Normal right ventricular size. Normal right ventricular systolic function. 4. Mild tricuspid regurgitation. 5. The estimated pulmonary artery systolic pressure is 28.0 mmHg. ATTESTATION: I have personally reviewed and interpreted this study without fellow or resident. DISCLAIMER: The study images and the final report will be retained in the patient chart by the Echo Laboratory for the legally required time period. This chart constitutes the legal record of any testing performed. FINDINGS: Left Ventricle: Normal left ventricular size based on volume index. Normal LV wall thickness. Moderately depressed left ventricular systolic function. The Ejection Fraction (Wiley's) is measured at 34 %. Grade I diastolic dysfunction (normal LA pressure). The average global longitudinal strain is abnormal. The LV global strain is: -12.1 %. No left ventricular thrombus visualized. Regional Wall Motion: There is moderate global hypokinesis. Right Ventricle: Normal right ventricular size. Normal right ventricular systolic function. Left Atrium: The left atrium is normal in size. Right Atrium: The right atrium is normal in size. Mitral Valve: Normal mitral valve structure. No mitral regurgitation. No stenosis present. Aortic Valve: Normal trileaflet aortic valve. No aortic regurgitation. No aortic valve stenosis. The mean transaortic gradient is 3 mmHg. The aortic valve area by the continuity equation (using VTI) is 3.59 cm2. Aortic valve dimensionless index is 0.94. Tricuspid Valve: Normal tricuspid valve structure. Mild tricuspid regurgitation. No tricuspid valve stenosis. Pulmonic Valve: Normal pulmonic valve structure. No pulmonic regurgitation. No pulmonic valve stenosis present. Pericardium: Normal pericardium without pericardial effusion. Aorta: Normal aortic root size at sinuses of Valsalva. Normal aortic root size when indexed. IVC: The IVC was <2.1 cm and collapsibility >50%. (est. RA pressure 0-5 mmHg). The estimated RA pressure is 5 mmHg. PASP: The estimated pulmonary artery systolic pressure is 28.0 mmHg. Rhythm: Normal Sinus rhythm was seen during the study. MEASUREMENTS: 2D/MM Value Range Doppler Value Range LVIDd 2D 4.92 cm [ 4.20 - 5.80 ] AV Peak David 1.2 m/s [ 1.0 - 1.7 ] LVIDs 2D 4.42 cm [ 2.50 - 4.00 ] AV Peak PG 5.76 mmHg IVSd 2D 1.07 cm [ 0.60 - 1.00 ] AV Mean PG 3 mmHg LVPWd 2D 1.00 cm [ 0.60 - 1.00 ] AV VTI 21.7 cm LV Thickness Ratio 1.1 LVOT Peak David 1.1 m/s [ 0.7 - 1.1 ] LV FS 2D 10.05 % [ 25.00 - 43.00 ] LVOT Peak PG 4.84 mmHg LV Mass 2D 189.48 g LVOT Mean PG 3 mmHg LV Mass Index 2D 87.64 g/m2 LVOT VTI 20.5 cm RWT 0.41 LVOT Diam 2.20 cm EDV Mod BP 141.89 ml [ 62.00 - 150.00 ] ELKE VTI 3.59 cm2 LV EDV Index 65.63 ml/m2 LVOT/AV VTI 0.94 - Dimensionless index (DVI) ESV Mod BP 93.44 ml [ 21.00 - 61.00 ] MV E Peak David 0.6 m/s [ 0.6 - 1.3 ] EF Mod BP 34 % [ 52 - 72 ] MV A Peak David 0.7 m/s [ 1.0 - 1.2 ] LV GLS -12.1 % [ -25.0 - -18.0 ] MV E/A 0.9 ratio [ 0.8 - 1.5 ] LA Length 4C 4.92 cm MV Decel Time 262.32 msec [ 104.00 - 258.00 ] LA Length 2C 4.63 cm Med E` David 5.3 cm/sec [ 8.0 - 25.0 ] LA Volume BP 27.45 ml Lat E` David 7.8 cm/sec [ 10.0 - 25.0 ] LA Volume Index 12.70 ml/m2 [ 16.00 - 34.00 ] Average E/E` 9.16 RV Base Dimen 2D 3.6 cm [ 2.5 - 4.2 ] RV S` 12.81 cm/sec TAPSE 1.85 cm [ 1.71 - 5.00 ] TR Peak David 2.4 m/s [ 1.0 - 2.8 ] RA Volume 32.75 ml TR Peak PG 23.0 mmHg RA Volume Index 15.15 ml/m2 RA Pressure 5 mmHg IVC Diam 1.41 cm RVSP 28.00 mmHg IVC Collapse 54 % PV Peak David 1.2 m/s [ 0.4 - 0.8 ] AoR Diam 2D 3.37 cm [ 3.10 - 3.70 ] PV Peak PG 5.76 mmHg Ao Root Index 1.56 cm/m2 [ 1.00 - 2.00 ] Electronically Signed By: David Shepard MD 03/25/2025 09:12:08 CDT Procedure Note David Shepard MD - 03/25/2025 [facility] [address] [place] [address] Transthoracic Echocardiographic Report Patient Name: AUSTIN ASHTON A : 1965 (59y 10m) Sex: M Study Date: 03/24/2025 10:39:18 Ht(Inch): 71 Wt(Lb): 212.08 BSA: 2.16 Fire Chief Deputy: Stefania Renee RDCS, [facility] Location: [facility] Order Provider:DAVID SHEPARD Heart Rate: 60 BMI: 29.58 Ref Provider: AUGUSTINDAVID ORNELAS PROCEDURES: Echocardiographic Report: Transthoracic complete echo with contrast, 2D,spectral and tissue Doppler, color flow Doppler, M-mode. Additional Procedures: Myocardial strain imaging was performed. Contrast: Contrast Enhancement was Employed: After initial imaging due tosub- optimal quality related to co-morbidity defined by patient's body habitus, due tosuboptimal image quality with inadequate visualization of at least 2 of 16 LV wallsegments in any view after initial imaging. Perflutren contrast was administered using thevolume necessary to obtain adequate images and. 0.8 ml Optison Administered, (2.2ml wasted). INDICATIONS: R07.9 Chest pain, unspecified and I42.0 Dilated cardiomyopathy. CONCLUSIONS: 1. Normal left ventricular size based on volume index. Normal LV wallthickness. Moderately depressed left ventricular systolic function. The EjectionFraction (Wiley's) is measured at 34 %. Grade I diastolic dysfunction (normal LApressure). The average global longitudinal strain is abnormal. 2. There is moderate global hypokinesis. 3. Normal right ventricular size. Normal right ventricular systolicfunction. 4. Mild tricuspid regurgitation. 5. The estimated pulmonary artery systolic pressure is 28.0 mmHg. ATTESTATION: I have personally reviewed and interpreted this study without fellow orresident. DISCLAIMER: The study images and the final report will be retained in the patientchart by the Echo Laboratory for the legally required time period. This chart constitutesthe legal record of any testing performed. FINDINGS: Left Ventricle: Normal left ventricular size based on volume index. NormalLV wall thickness. Moderately depressed left ventricular systolic function. TheEjection Fraction (Wiley's) is measured at 34 %. Grade I diastolic dysfunction (normal LApressure). The average global longitudinal strain is abnormal. The LV global strain is:-12.1 %. No left ventricular thrombus visualized. Regional Wall Motion: There is moderate global hypokinesis. Right Ventricle: Normal right ventricular size. Normal right ventricularsystolic function. Left Atrium: The left atrium is normal in size. Right Atrium: The right atrium is normal in size. Mitral Valve: Normal mitral valve structure. No mitral regurgitation. Nostenosis present. Aortic Valve: Normal trileaflet aortic valve. No aortic regurgitation. Noaortic valve stenosis. The mean transaortic gradient is 3 mmHg. The aortic valve areaby the continuity equation (using VTI) is 3.59 cm2. Aortic valve dimensionlessindex is 0.94. Tricuspid Valve: Normal tricuspid valve structure. Mild tricuspidregurgitation. No tricuspid valve stenosis. Pulmonic Valve: Normal pulmonic valve structure. No pulmonicregurgitation. No pulmonic valve stenosis present. Pericardium: Normal pericardium without pericardial effusion. Aorta: Normal aortic root size at sinuses of Valsalva. Normal aortic rootsize when indexed. IVC: The IVC was <2.1 cm and collapsibility >50%. (est. RA pressure 0-5mmHg). The estimated RA pressure is 5 mmHg. PASP: The estimated pulmonary artery systolic pressure is 28.0 mmHg. Rhythm: Normal Sinus rhythm was seen during the study. MEASUREMENTS: 2D/MM Value Range DopplerValue Range LVIDd 2D 4.92 cm [ 4.20 - 5.80 ] AV Peak Vel1.2 m/s [ 1.0 - 1.7 ] LVIDs 2D 4.42 cm [ 2.50 - 4.00 ] AV Peak PG5.76 mmHg IVSd 2D 1.07 cm [ 0.60 - 1.00 ] AV Mean PG3 mmHg LVPWd 2D 1.00 cm [ 0.60 - 1.00 ] AV VTI21.7 cm LV Thickness Ratio 1.1 LVOT Peak Vel1.1 m/s [ 0.7 - 1.1 ] LV FS 2D 10.05 % [ 25.00 - 43.00 ] LVOT Peak PG4.84 mmHg LV Mass 2D 189.48 g LVOT Mean PG3 mmHg LV Mass Index 2D 87.64 g/m2 LVOT VTI20.5 cm RWT 0.41 LVOT Diam2.20 cm EDV Mod BP 141.89 ml [ 62.00 - 150.00 ] ELKE VTI3.59 cm2 LV EDV Index 65.63 ml/m2 LVOT/AV VTI0.94 - Dimensionless index (DVI) ESV Mod BP 93.44 ml [ 21.00 - 61.00 ] MV E Peak Vel0.6 m/s [ 0.6 - 1.3 ] EF Mod BP 34 % [ 52 - 72 ] MV A Peak Vel0.7 m/s [ 1.0 - 1.2 ] LV GLS -12.1 % [ -25.0 - -18.0 ] MV E/A0.9 ratio [ 0.8 - 1.5 ] LA Length 4C 4.92 cm MV Decel Cdam605.32 msec [ 104.00 - 258.00 ] LA Length 2C 4.63 cm Med E` Vel5.3 cm/sec [ 8.0 - 25.0 ] LA Volume BP 27.45 ml Lat E` Vel7.8 cm/sec [ 10.0 - 25.0 ] LA Volume Index 12.70 ml/m2 [ 16.00 - 34.00 ] Average E/E`9.16 RV Base Dimen 2D 3.6 cm [ 2.5 - 4.2 ] RV S`12.81 cm/sec TAPSE 1.85 cm [ 1.71 - 5.00 ] TR Peak Vel2.4 m/s [ 1.0 - 2.8 ] RA Volume 32.75 ml TR Peak PG23.0 mmHg RA Volume Index 15.15 ml/m2 RA Pressure5 mmHg IVC Diam 1.41 cm RVSP28.00 mmHg IVC Collapse 54 % PV Peak Vel1.2 m/s [ 0.4 - 0.8 ] AoR Diam 2D 3.37 cm [ 3.10 - 3.70 ] PV Peak PG5.76 mmHg Ao Root Index 1.56 cm/m2 [ 1.00 - 2.00 ] Electronically Signed By: David Shepard MD 03/25/2025 09:12:08 CDT us David Shepard MD CV ECHO PROCEDURES Final Res ult from Last 3 Months Insurance [employer] Care Teams Sail Cutter Relationship Specialty Start Date End Date Lucas Hinojosa MD PCP - General Family Practice 03/12/23
--- OUTSIDE RECORDS SUMMARY | 2025-06-22 10:54 | XMS_ITS | Clinical Summary ---
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
--- OUTSIDE RECORDS SUMMARY | 2025-06-22 10:54 | XMS_ITS | Encounter Summary ---
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 Gender Identity Not on file Sexual Orientation Not on file documented as of this encounter Plan of Treatment Not on file documented as of this encounter Procedures Procedure Name Priority Date/Time Associated Diagnosis Comments SCAN - RADIOLOGY/IMAGING 01/16/2025 CARDIOLOGY DOCUMENT SCAN 01/16/2025 documented in this encounter Results * SCAN - RADIOLOGY/IMAGING (01/16/2025) Anatomical Region Laterality Modality Other us Provider Scanning Edited Result - Final * Cardiology Document Scan (01/16/2025) Anatomical Region Laterality Modality Other us Provider Scanning CV CARDIAC SERVICES PROCEDURES Edited Result - Final documented in this encounter Visit Diagnoses Not on filedocumented in this encounter Care Teams Square Cutter Relationship Specialty Start Date End Date Lucas Hinojosa MD PCP - General Family Practice 03/12/23 documented as of this encounter
[2025-06-22 11:16] LABS: Hematocrit 52.9 % (42.0-52.0); Hemoglobin 17.9 g/dL (14.0-18.0); Immature Granulocyte Percent A 0.4 % (0-0.5); Lymphocytes Absolute Auto 2.27 K/mm3 (0.9-3.2); Mean Corpuscular HGB Conc 33.8 g/dl (32-36); Mean Corpuscular Hemoglobin 32.7 pg (26-34); Mean Corpuscular Volume 96.5 fl (80-100); Nucleated Red Blood Cells Absolute Auto 0.000 K/mm3 (0.0-0.012); Nucleated Red Blood Cells Perc 0.0 % (0.0-0.2); Platelet Count Result 233 k/mm3 (150-375); Red Blood Count 5.48 M/mm3 (4.6-6.20); White Blood Count 9.5 K/mm3 (4.5-10.0)
[2025-06-22 11:32] LABS: Hemoglobin A1C 5.2 % (<5.7)
[2025-06-22 11:41] LABS: Alanine Aminotransferase 25 U/L (6-50); Albumin Level 4.7 g/dL (3.5-5.1); Alkaline Phosphatase 69 U/L (38-126); Anion Gap 6 mmol/L (4-12); Aspartate Amino Transferase 34 U/L (17-59); Bilirubin,Total 0.8 mg/dL (0.2-1.3); Blood Urea Nitrogen 17 mg/dL (9-20); Calcium 9.4 mg/dL (8.4-10.2); Carbon Dioxide 26 mmol/L (22-30); Chloride 107 mmol/L (98-107); Cholesterol 226 mg/dL (0-200); Estimated Glomerular Filt Rate > 60; Glucose 97 mg/dL (65-110); HDL Direct 68 mg/dL; Potassium 4.8 mmol/L (3.4-5.0); Sodium 139 mmol/L (137-145); Total Protein 7.7 g/dL (6.3-8.2); Triglycerides 129 mg/dL (<150)
[2025-06-22 14:45] LABS: Vitamin B12 683.0 pg/mL (239-931)
[2025-06-23 07:09] LABS: eGFR 70 (>59)
[2025-06-25 00:07] LABS: Free Testosterone (Direct) 6.6 pg/mL (6.6-18.1)
== END 2025-06-22 10:22 | disposition home or self-care (01) ==
PROVIDERS: PCP Family Medicine; Visit Provider Family Medicine
DX: I11.0 Hypertensive heart disease with heart failure (principal); I50.9 Heart failure, unspecified; E78.5 Hyperlipidemia, unspecified; E66.9 Obesity, unspecified; R53.83 Other fatigue; R79.89 Other specified abnormal findings of blood chemistry; R73.03 Prediabetes
CPT/HCPCS: 36415; 80053; 80061; 82172; 82306; 82607; 82610; 82746; 83036; 83090; 83921; 84402; 84403; 85025